=== PATIENT | female | born 1930 | race Two or more races ===

== ENCOUNTER 2016-12-26 19:50 | Inpatient (IN) | payer MEDICARE, OTHER ==
[~2016-12-26] VITALS: Ht 152.4 cm; Wt 59.6 kg
[~2016-12-26 19:50] MED LIST: ALLO300T2 PO; DOCU-144 PO; ERGO500037 PO; EZET10TA3 PO; FERR325C PO; FLUO40CA PO; METO50TA16 PO; MULT-552 PO; OLAN2.5T4 PO; OLME40TA14 PO; PANT40TA4 PO; RALO60TA12 PO; SIMV20TA2 PO
[2016-12-26 20:48] LABS: ADD SCAN DIFF NO
[2016-12-26 20:50] LABS: BASOPHILS % 0.3 % (0.0-2.0); EOSINOPHILS # 0.3 10^3/ul (0.0-0.5); EOSINOPHILS % 4.3 % (0.0-7.0); HEMATOCRIT 32.3 % (37.0-47.0); HEMOGLOBIN 10.6 g/dl (12.0-16.0); LYMPHOCYTES % 29.7 % (15.0-51.0); MEAN CORPUSCULAR HEMOGLOBIN 31.9 pg (29.0-33.0); MEAN CORPUSCULAR HGB CONC 32.8 g/dl (32.0-37.0); MEAN CORPUSCULAR VOLUME 97.3 fl (82.0-101.0); MONOCYTE # 0.5 10^3/ul (0.3-0.9); NEUTROPHIL # 3.9 10^3/ul (1.6-7.5); NEUTROPHILS % 57.3 % (39.0-77.0); PLATELET COUNT 183 10^3/UL (140-415); RED BLOOD COUNT 3.32 10^6/ul (4.20-5.40); RED CELL DISTRIBUTION WIDTH 12.9 % (11.5-14.5); WHITE BLOOD COUNT 6.7 10^3/ul (4.8-10.8)
[2016-12-26] MEDS ORDERED: FURO20TA3 PO (20:56)
[2016-12-26] MEDS ORDERED: POTA20TA96 PO (20:57)
[2016-12-26] MEDS ORDERED: FLUO20CA22 PO (20:57)
[2016-12-26] MEDS ORDERED: OMEP40CA6 PO (20:58)
[2016-12-26] MEDS ORDERED: MIRT15TA5 PO (20:58)
[2016-12-26] MEDS ORDERED: LORA-186 PO (20:59)
[2016-12-26] MEDS ORDERED: FER325 PO (20:59)
[2016-12-26] MEDS ORDERED: ASC500 PO (21:01)
[2016-12-26] MEDS ORDERED: CALC625T73 PO (21:01)
[2016-12-26 21:03] LABS: ADD UMIC YES; UR ASCORBIC ACID 40 mg/dL (NEGATIVE); UR BACTERIA FEW /HPF (NONE SEEN); UR BILIRUBIN (Dip) NEGATIVE (NEGATIVE); UR BLOOD (Dip) 2+ mg/dL (NEGATIVE); UR CLARITY CLOUDY (CLEAR); UR COLOR YELLOW (YELLOW); UR GLUCOSE (Dip) NEGATIVE (NEGATIVE); UR KETONES (Dip) NEGATIVE (NEGATIVE); UR LEUKOCYTE ESTERASE (Dip) 3+ Leu/ul (NEGATIVE); UR MUCUS FEW /HPF (NONE SEEN); UR NITRITE (Dip) POSITIVE (NEGATIVE); UR RBC 40 /HPF (0-5); UR SPECIFIC GRAVITY (Dip) 1.009 (1.003-1.030); UR TOTAL PROTEIN (Dip) NEGATIVE (NEGATIVE); UR UROBILINOGEN (Dip) NEGATIVE (NEGATIVE)
[2016-12-26 21:06] LABS: INR 1.05; PROTIME 13.7 Sec (12.2-14.2); PT RATIO 1.1
[2016-12-26 21:07] LABS: PARTIAL THROMBOPLASTIN TIME 33.1 Sec (25.0-35.0)
[2016-12-26 21:09] LABS: ALBUMIN 4.1 g/dl (3.3-4.9); ALBUMIN/GLOBULIN RATIO 1.57; BILIRUBIN,INDIRECT 0.1 mg/dl (0-1.1); BILIRUBIN,TOTAL 0.1 mg/dl (0.2-1.3); CALCIUM 9.1 mg/dl (8.4-10.2); CREATININE 1.93 mg/dl (0.44-1.00); POTASSIUM 4.2 mmol/L (3.5-5.1); TOTAL PROTEIN 6.7 g/dl (6.1-8.1)
[2016-12-26 21:21] LABS: TROPONIN-I 0.028 ng/ml (0.00-0.12)
[2016-12-26] MEDS ORDERED: SOD CHLORIDE 0.9% 500 ML IV STA (21:26)
--- NOTE | 2016-12-26 21:26 | ERA ---
ER Documentation Chief Complaint Date/Time DATE: 12/26/16 TIME: 21:23 Chief Complaint family states patient been altered/hallucinating since last night HPI This is an 86-year-old female who presents to the emergency room for evaluation of generalized weakness, altered mental status and hallucinations for the past 24 hours. According to the patient's daughter who is giving the majority of the history this patient does sometimes get these symptoms when she has an infection and has had previous urinary tract infections. The daughter states the patient is acting the same as when she had previous urinary tract infection. There is no fevers at home. The patient's primary care physician was called and they were advised to come to the emergency room for further evaluation. ROS All systems reviewed and are negative except as per history of present illness. Medications Home Meds Reported Medications Ascorbic Acid (Vitamin C) 500 Mg Tab, 500 MG PO DAILY, TAB 12/26/16 Calcium Polycarbophil (Fiber-Caps) 625 Mg Tablet, 625 MG PO QAM, TAB 12/26/16 Ferrous Sulfate* (Ferrous Sulfate*) 325 Mg Tabec, 325 MG PO BID, TAB 12/26/16 Loratadine* (Claritin*) 10 Mg Tablet, 10 MG PO QHS, TAB 12/26/16 Mirtazapine* (Mirtazapine*) 15 Mg Tablet, 15 MG PO QAM, TAB 12/26/16 Omeprazole* (Omeprazole*) 40 Mg Capsule.dr, 40 MG PO DAILY, #30 CAP 12/26/16 Potassium Chloride* (Potassium Chloride*) 20 Meq Tablet.er, 20 MEQ PO QHS, TAB.SA 12/26/16 Fluoxetine Hcl* (Fluoxetine Hcl*) 20 Mg Capsule, 20 MG PO DAILY, CAP 12/26/16 Furosemide* (Furosemide*) 20 Mg Tablet, 20 MG PO DAILY, #60 TAB 12/26/16 Multivitamins* (Once Daily*) 1 Tab Tablet, 1 TAB PO DAILY, TAB 01/19/16 Metoprolol Succinate* (Toprol XL*) 50 Mg Tab.er.24h, 50 MG PO DAILY, #30 TAB 01/19/16 Raloxifene Hcl* (Evista*) 60 Mg Tablet, 60 MG PO DAILY, TAB 11/24/14 Discontinued Reported Medications Olanzapine* (Zyprexa*) 2.5 Mg Tablet, 2.5 MG PO DAILY, #30 TAB 01/19/16 Fluoxetine Hcl* (Fluoxetine Hcl*) 40 Mg Capsule, 40 MG PO DAILY, CAP 01/19/16 Ferrous Sulfate (Iron) 325 Mg Capsr, 325 MG PO DAILY 01/19/16 Ergocalciferol (Vitamin D2) (VITAMIN D2) 50,000 Unit Capsule, 76749 UNIT PO WEEKLY, CAP 01/19/16 Docusate Sodium* (Colace*) 100 Mg Capsule, 200 MG PO DAILY, #30 CAP 01/19/16 Pantoprazole (Protonix) 40 Mg Tabec, 40 MG PO AC BREAKFAST, TAB 11/07/15 Allopurinol* (Allopurinol*) 300 Mg Tablet, 300 MG PO QPM, TAB 11/07/15 Simvastatin (Simvastatin) 20 Mg Tablet, 20 MG PO HS, TAB 11/24/14 Olmesartan Medoxomil (Benicar) 40 Mg Tablet, 40 MG PO DAILY, TAB 11/24/14 Ezetimibe* (Zetia*) 10 Mg Tablet, 10 MG PO HS, TAB 11/24/14 Allergies Allergies: Coded Allergies: No Known Allergy (Unverified , 12/26/16) PMhx/Soc History of Surgery: Yes (fused left knee sx) Anesthesia Reaction: No Hx Neurological Disorder: No Hx Respiratory Disorders: No Hx Cardiac Disorders: No Hx Psychiatric Problems: No Hx Miscellaneous Medical Probl: No Hx Alcohol Use: No Hx Substance Use: No Hx Tobacco Use: No Smoking Status: Never smoker Physical Exam Vitals Vital Signs Date Time Temp Pulse Resp B/P Pulse Ox O2 Delivery O2 Flow Rate FiO2 12/26/16 20:44 98.6 60 23 139/82 98 Room Air 12/26/16 19:52 98.7 72 20 131/69 98 Physical Exam INITIAL VITAL SIGNS: Reviewed by me GENERAL: The patient is frail-appearing elderly female, no acute HEENT: Left eye droop, pupils equal, round, and reactive to light. EOMI. There is no scleral icterus. NECK: C-spine is soft and supple, there is no meningismus. There is no cervical lymphadenopathy. LUNGS: Clear to auscultation bilaterally. There are no rales, wheezes or rhonchi. HEART: Regular rate and rhythm, no murmurs, clicks, rubs or gallops. ABDOMEN: Soft, non-tender, non-distended. There are bowel sounds in all four quadrants. No rebound or guarding. EXTREMITIES: There is no peripheral cyanosis or edema. No focal swelling or erythema. NEUROLOGICAL: Alert and oriented to person, left-sided weakness, SKIN: There is no apparent rash or petechiae. HEME/LYMPHATIC: There is no evidence of excessive bruising or lymphedema. PSYCHIATRIC: The patient does not appear anxious or depressed. Result Diagram: 12/26/16202912/26/16 2030 Results 24 hrs Laboratory Tests Test 12/26/16 20:30 White Blood Count 6.710^3/ul Red Blood Count 3.3210^6/ul Hemoglobin 10.6g/dl Hematocrit 32.3% Mean Corpuscular Volume 97.3fl Mean Corpuscular Hemoglobin 31.9pg Mean Corpuscular Hemoglobin Concent 32.8g/dl Red Cell Distribution Width 12.9% Platelet Count 16580^3/UL Mean Platelet Volume 10.0fl Neutrophils % 57.3% Lymphocytes % 29.7% Monocytes % 8.0% Eosinophils % 4.3% Basophils % 0.3% Nucleated Red Blood Cells % 0.0/100WBC Neutrophils # 3.910^3/ul Lymphocytes # 2.010^3/ul Monocytes # 0.510^3/ul Eosinophils # 0.310^3/ul Basophils # 0.010^3/ul Nucleated Red Blood Cells # 0.010^3/ul Prothrombin Time 13.7Sec Prothrombin Time Ratio 1.1 INR International Normalized Ratio 1.05 Activated Partial Thromboplast Time 33.1Sec Urine Color YELLOW Urine Clarity CLOUDY Urine pH 7.0 Urine Specific Sledge 1.009 Urine Ketones NEGATIVEmg/dL Urine Nitrite POSITIVEmg/dL Urine Bilirubin NEGATIVEmg/dL Urine Urobilinogen NEGATIVEmg/dL Urine Leukocyte Esterase 3+Lima/ul Urine Microscopic RBC 40/HPF Urine Microscopic WBC > 182/HPF Urine Bacteria FEW/HPF Urine Mucus FEW/HPF Urine Hemoglobin 2+mg/dL Urine Glucose NEGATIVEmg/dL Urine Total Protein NEGATIVEmg/dl Sodium Level 139mmol/L Potassium Level 4.2mmol/L Chloride Level 107mmol/L Carbon Dioxide Level 23mmol/L Anion Gap 13 Blood Urea Nitrogen 36mg/dl Creatinine 1.93mg/dl Glucose Level 94mg/dl Lactic Acid Level 1.6mmol/L Calcium Level 9.1mg/dl Total Bilirubin 0.1mg/dl Direct Bilirubin 0.00mg/dl Indirect Bilirubin 0.1mg/dl Aspartate Amino Transf (AST/SGOT) 23IU/L Alanine Aminotransferase (ALT/SGPT) 25IU/L Alkaline Phosphatase 125IU/L Troponin I Pending Total Protein 6.7g/dl Albumin 4.1g/dl Globulin 2.60g/dl Albumin/Globulin Ratio 1.57 Current Medications Medications (Trade) Dose Ordered Sig/Mima Route PRN Reason Start Time Stop Time Status Last Admin Dose Admin Ceftriaxone Sodium (Rocephin) 50 ml @ 100 mls/hr ONCE ONCE IVPB 12/26/16 21:30 12/26/16 21:59 Procedures/MDM EKG: Rate/Rhythm: [Normal Sinus Rhythm] QRS, ST, T-waves: [No changes consistent w/ acute ischemia] Impression: [No evidence of ischemia or arrhythmia] Chest X-ray 1V Interpreted by me: Soft Tissue: No acute abnormalities Bones: No acute abnormalities Mediastinum/Cardiac Silhouette/Lungs: [No acute abnormalities] This 86-year-old female presents to the emergency room for evaluation of altered mental status and hallucinations. When I evaluated this patient I saw frail-appearing elderly female who is nontoxic appearing however appeared mildly dehydrated. This patient was afebrile and hemodynamically stable. The patient did have lab work drawn including a urinalysis which does show nitrite positive urinary tract infection. This patient does have renal insufficiency, no severe elevations in her creatinine at this time. No leukocytosis however given this patient's age this patient will be placed in for admission at this time. The patient was given 500 cc of IV fluid. She was given 1 g of Rocephin after blood and urine cultures were obtained. I have contacted the patient's primary care physician, Dr. haji and I discussed the case with him. The patient will be admitted to the [facility] floor at this time. She is hemodynamically stable, mean arterial pressure greater than 65 with no need for vasopressors at this time Departure Diagnosis: Primary Impression: Acute cystitis Additional Impressions: Altered mental status Normocytic anemia Renal insufficiency Condition: Stable PATRICE CAUSEY DO Dec 26, 2016 21:26
[2016-12-26] MEDS ORDERED: ONDANSETRON 4 MG INJ IV PRN (21:30)
[2016-12-26] MEDS ORDERED: ACETAMINOPHEN 325 MG TAB PO PRN (21:30)
[2016-12-26] MEDS ORDERED: CEFTRIAXONE 1 GM/50 ML (PMX) 50 ML IVPB ONE (21:30)
--- NOTE | 2016-12-26 21:43 | RADRPT ---
PROCEDURE: XR Chest. CLINICAL INDICATION: Possible sepsis. TECHNIQUE: Single frontal view of the chest. COMPARISON: 11/19/2015. FINDINGS: Cardiomegaly and atherosclerotic calcifications in the thoracic aorta. Mild elevation right hemidiap hragm is again seen. The lungs are clear. No signs of pleural fluid or pneumothorax are seen. The os seous structures and soft tissues are unremarkable. IMPRESSION: No evidence for active cardiopulmonary disease. RPTAT: [facility] Physician Carmen Date Time Electronically viewed and signed by Physician Carmen on 12/26/2016 21:42 RS/
[2016-12-26 22:42] VITALS: TEMP 98
[2016-12-26 23:00] VITALS: BP 143/64; RESP 19
[2016-12-26 23:08] VITALS: Ht 152.4 cm; Wt 59.6 kg
[2016-12-27] MEDS: SOD CHLORIDE 0.45% 1,000 ML IV SCH ×2 (02:27→18:05)
[2016-12-27 05:36] LABS: ADD SCAN DIFF NO
[2016-12-27 05:49] LABS: BASOPHILS % 0.3 % (0.0-2.0); EOSINOPHILS # 0.2 10^3/ul (0.0-0.5); HEMATOCRIT 31.4 % (37.0-47.0); HEMOGLOBIN 10.2 g/dl (12.0-16.0); LYMPHOCYTES # 1.9 10^3/ul (0.8-2.9); LYMPHOCYTES % 31.8 % (15.0-51.0); MEAN CORPUSCULAR HEMOGLOBIN 32.1 pg (29.0-33.0); MEAN CORPUSCULAR HGB CONC 32.5 g/dl (32.0-37.0); MEAN CORPUSCULAR VOLUME 98.7 fl (82.0-101.0); MEAN PLATELET VOLUME 10.3 fl (7.4-10.4); MONOCYTE # 0.5 10^3/ul (0.3-0.9); MONOCYTES % 7.5 % (0.0-11.0); NEUTROPHIL # 3.3 10^3/ul (1.6-7.5); NEUTROPHILS % 55.7 % (39.0-77.0); PLATELET COUNT 174 10^3/UL (140-415); RED BLOOD COUNT 3.18 10^6/ul (4.20-5.40); RED CELL DISTRIBUTION WIDTH 12.8 % (11.5-14.5)
[2016-12-27] MEDS: PANTOPRAZOLE (EC) 40 MG TAB PO SCH (06:08)
[2016-12-27 06:11] LABS: CALCIUM 9.1 mg/dl (8.4-10.2); CREATININE 1.79 mg/dl (0.44-1.00); POTASSIUM 4.2 mmol/L (3.5-5.1)
[2016-12-27 08:58] VITALS: BP 131/61; RESP 17
[2016-12-27] MEDS: FERROUS SULFATE (EC) 325 MG TAB PO SCH ×2 (10:04→22:00)
[2016-12-27] MEDS: FLUOXETINE 20 MG CAP PO SCH (10:04)
[2016-12-27] MEDS: ASCORBIC ACID 500 MG TAB PO SCH (10:04)
[2016-12-27] MEDS: MULTIVITAMINS THERAPEUTIC TAB PO SCH (10:05)
[2016-12-27] MEDS: RALOXIFENE 60 MG TAB PO SCH (10:05)
[2016-12-27] MEDS: MIRTAZAPINE 15 MG TAB PO SCH (10:05)
[2016-12-27] MEDS: METOPROLOL (XL) 50 MG TAB PO SCH (10:05)
[2016-12-27] MEDS: ASPIRIN 81 MG TAB PO SCH (10:05)
[2016-12-27] MEDS: ENOXAPARIN 30 MG/0.3 ML SYG SC SCH (10:06)
--- NOTE | 2016-12-27 13:24 | CONS ---
DATE OF ADMISSION: 12/26/2016 DATE OF CONSULTATION: 12/27/2016 TYPE OF CONSULTATION: Nephrology. REFERRING PHYSICIAN: Dr. Fred Rogers/admitting physician REASON FOR CONSULTATION: Acute kidney injury with elevated creatinine. HISTORY OF PRESENT ILLNESS: This is an 86-year-old female who has a past medical history of CVA, hy pertension, hyperlipidemia, asthma, arthritis, and borderline diabetes mellitus. The patient was ad mitted to the [facility] on 12/26/2016 with a complaint of altered mental status. The patient has been hallucinating. She was admitted for altered mental status and she was noted t o have acute kidney injury with a creatinine of 1.9. The patient was alert, oriented but not follow ing any commands. She was hallucinating with altered mental status. She had initial workup done in cluding a chest x-ray and she received IV antibiotic ceftriaxone for possible UTI in the emergency r oom. REVIEW OF SYSTEMS: The patient is alert but is not able to provide any review of systems. Unable t o obtain due to the current mental status. PAST MEDICAL HISTORY: Notable for hypertension, hyperlipidemia, CVA, asthma, diabetes mellitus bord lefty, arthritis. PAST SURGICAL HISTORY: History of left leg ____ surgery in 2016. SOCIAL HISTORY: Lives with the family. No smoking, alcohol or recreational drug use. FAMILY HISTORY: No family history of coronary artery disease/chronic kidney disease/stroke. PHYSICAL EXAMINATION: VITAL SIGNS: Temperature 99, heart rate 64, respirations 17, blood pressure 131/67, saturation 96% on room air. GENERAL: Awake, alert, but not oriented to the place, person and time. HEENT: Pupils equal, round, reactive to light and accommodation. Extraocular muscles are anicteric . The patient has a right facial laceration with dry mucous membranes. NECK: Supple, no JVD, no lymphadenopathy. LUNGS: Decreased breath sounds at both lung bases, right middle lobe, right lower lobe basilar rale s present. HEART: S1, S2, tachycardia, no murmur. ABDOMEN: Soft, nontender, nondistended. Bowel sounds are present. EXTREMITIES: No clubbing, cyanosis, or edema. The patient is able to move all [address] 5/5 in all extremities. NEUROLOGIC: Alert, but not oriented to the place, person and time. No focal deficits. PSYCHIATRIC: Appropriate affect and mood, but the patient's family said that she has been hallucina ting at home. LABORATORY DATA AND DIAGNOSTIC IMAGING: Sodium 139, potassium 4.2, chloride 107, bicarbonate ____, BUN 36, creatinine 1.9, glucose 94, calcium 9.1. LFTs are normal. Urinalysis is dirty with a WBC o f more than 182. PT 13.7, PTT 33.1, INR 1.05. WBC 6, hemoglobin 10.2, platelet count 174. Chest x-ray 1 view portable, done in the emergency room is negative. IMPRESSION: This is an 86-year-old female who is getting admitted for altered mental status and thao elizabeth has been consulted for: 1. Acute kidney injury versus acute kidney injury on chronic kidney disease, likely secondary to pr erenal azotemia and also secondary to urinary tract infection. 2. Acute urinary tract infection causing altered mental status. 3. Altered mental status, unclear etiology, possibly secondary to urinary tract infection. 4. History of possible chronic kidney disease secondary to hypertension and diabetes. 5. History of hypertension. 6. History of hyperlipidemia. 7. History of previous cerebrovascular accident. 8. History of borderline diabetes mellitus. PLAN: The patient is currently seen in the med/surg floor. She has already been started on IV anti biotics, ceftriaxone for UTI. I will continue the patient on half NS at 60 mL per hour. I am expec ting the patient's creatinine to improve at this point. Patient is continued on all of her other [facility] medications including Prozac and Remeron for her psychiatric disorders. The patient previously was seen by [facility] and she had a full workup for chronic kidney disease that was done in 2016. At that time, she had urine studies done, but no renal ultrasound was done, so we javon l order her renal ultrasound during this admission to assess the kidney size and to rule out hydrone phrosis and decide for further plan. Once again, thank you, Dr. Rogers, for this consultation. Total time spent in this patient's consultation, making assessment and plan, and communicating with the patient's family and nursing staff took more than 60 minutes. Dictated By: DILSHAD PAIZ MD, KP/HARRISON Conf#: [id number] DID#: [id number] CC: FRED ROGERS MD;*End*
--- NOTE | 2016-12-27 14:19 | RADRPT ---
PROCEDURE: US Renal CLINICAL INDICATION: Acute renal failure. TECHNIQUE: Multiple sonographic images of the kidneys and bladder were obtained. Evaluation of th e kidneys and bladder was performed as well with collazo scale and color and Doppler evaluation using a curved array transducer. The images were reviewed on a high-resolution PACS workstation. COMPARISON: No prior studies are available for comparison. FINDINGS: The right kidney measures 7.5 cm. The left kidney measures 7.7 cm. Kidneys are small with increased echotexture of the renal parenchyma bilaterally. There is mild prominence of the calyces in the right kidney without judit hydronephrosis. No perinephric fluid collection is seen. Evaluation of the urinary bladder is unremarkable. IMPRESSION: 1. Small, echogenic kidneys consistent with medical renal disease. 2. Mild prominence of the calyces in the right kidney without judit hydronephrosis. RPTAT: [facility] Physician Parrish Date Time Electronically viewed and signed by Physician Parrish on 12/27/2016 14:18 NADIA/
--- NOTE | 2016-12-27 15:12 | HP ---
DATE OF ADMISSION: 12/26/2016 CHIEF COMPLAINT: Altered level of consciousness with hallucinations. HISTORY OF PRESENT ILLNESS: The patient is an 86-year-old female with a past medical histo ry positive for hypertension, anxiety, depression, anemia of chronic disease, history of acute kidne y injury, dyslipidemia, gastroesophageal reflux disease. The patient also with history of left knee replacement in 11/2015, subsequent wound dehiscence and exposed hardware, status post treatment. T he patient followed by Dr. Nguyen and Dr. Thomas in orthopedic surgery, and Dr. Almanzar from plas tic surgery standpoint. The patient was brought to the emergency room last night by family members stating that the patient has been altered and hallucinating. The patient was sent to the emergency room by primary care physician. In the emergency room, patient was noted to have a urinary tract in fection per urinalysis. The patient was started on ceftriaxone. The patient did not have any leuko cytosis or fever. The patient was noted to have elevated BUN and creatinine. The patient is being admitted for further evaluation and management. The patient underwent a chest x-ray, which revealed no evidence for acute cardiopulmonary disease. No nausea, vomiting, fever reported. No chest pain , no shortness of breath. PAST MEDICAL HISTORY AND PAST SURGICAL HISTORY: Per HPI. FAMILY HISTORY: Noncontributory. SOCIAL HISTORY: The patient is a , lives with her children. The patient denies any tobacco us e, denies any alcohol use, denies any illicit drug use. ALLERGIES: NO KNOWN ALLERGIES. HOME MEDICATIONS: Include: 1. Vitamin C. 2. Ferrous sulfate. 3. Claritin. 4. Mirtazapine. 5. Omeprazole. 6. Potassium chloride. 7. Fluoxetine. 8. Lasix. 9. Multivitamins. 10. Toprol-XL. REVIEW OF SYSTEMS: A 12-point review of systems is negative unless what mentioned in the HPI. PHYSICAL ASSESSMENT: GENERAL: Well-developed, well-nourished female, currently is awake, alert to name, follows commands , however, pleasantly confused. VITAL SIGNS: Temperature is 99.0, pulse is 64, blood pressure 131/61, respiratory rate 17, oxygen s aturation 96% on room air. HEENT: Head is atraumatic, normocephalic. Pupils equal, round, reactive to light and accommodation . Oral mucosa is pink and moist. NECK: Supple, no cervical lymphadenopathy, no thyromegaly. CHEST: Lungs clear bilaterally. There are no rhonchi, wheezes, rales noted. CARDIOVASCULAR: Normal S1, S2. No murmurs, gallops, clicks, rubs noted. ABDOMEN: Round, soft, nondistended, nontender. Bowel sounds present. There is no guarding, no shayan ound tenderness. EXTREMITIES: No edema, clubbing, cyanosis. The patient has a left knee scar. SKIN: There is no apparent rash or petechiae noted. NEUROLOGIC: The patient is awake, alert to name. Otherwise, confused. Follows commands, moves all extremities. LABORATORY DATA: On admission, CBC: White blood cells 6.7, hemoglobin 10.6, hematocrit 32.3, plate lets 183. Chemistry: Sodium is 139, potassium 4.2, chloride 107, carbon dioxide 23, anion gap 15, BUN is 36, creatinine 1.93, glucose 94. AST 23, ALT 25, alkaline phosphatase 125. Lactic acid is 1 .6. Urinalysis is positive for nitrite and leukocyte esterase, 3+ bacteria and hemoglobin. ASSESSMENT AND PLAN: 1. Acute cystitis. We will continue patient on ceftriaxone. Follow up on urine cultures. Dr. José Luis rice will be following patient in infectious disease consultation. 2. Acute kidney injury on chronic kidney disease. Dr. Perez will be following patient in nephrolog y consultation. Continue to monitor BUN and creatinine. 3. Altered mental status, unclear etiology, secondary to acute metabolic encephalopathy secondary t o infection. 4. Hypertension by history. 5. Hyperlipidemia. 6. History of cerebrovascular accident. 7. History of anxiety and depression. 8. Anemia of chronic disease. 9. History of gastroesophageal reflux disease. 10. History of left knee replacement. We will continue Lovenox for deep venous thrombosis prophylaxis and Protonix for peptic ulcer diseas e prophylaxis. Continue Toprol-XL and aspirin. Further recommendations based on clinical course. Plan of care discussed with Dr. Pennington. Dictated By: PALMA WILL RAGS LABORER for FRED PENNINGTON MD SR/NTS Conf#: [id number] DID#: [id number]
--- NOTE | 2016-12-27 16:32 | CONS ---
DATE OF ADMISSION: 12/26/2016 DATE OF CONSULTATION: 12/27/2016 TYPE OF CONSULTATION: Infectious Disease REASON FOR CONSULTATION: Antibiotic management. HISTORY OF PRESENT ILLNESS: Judi Woodson is an 86-year-old female who comes in with alter ed level of consciousness and hallucinations. Her past problems include: 1. Hypertension. 2. Anxiety and depression. 3. Anemia of chronic disease. 4. Acute kidney injury. 5. Dyslipidemia. 6. GERD. 7. Status post left knee replacement 11/2015 with subsequent wound dehiscence and exposed hardware, status post therapy. The patient has been followed by Dr. Nguyen and Dr. Thomas in orthopedic surgery and by Dr. Almanzar from a plastic surgery viewpoint. The patient was brought to the emergency room on 12/25/2016 in the evening with altered level of con sciousness and hallucinations. She was noted to have a UTI and was started on ceftriaxone. She did not have fever or leukocytosis. She had an elevated BUN and creatinine. On her admission, her whi te count was 6.7, H and H 10.6 and 32.3, platelet count 183,000. BUN and creatinine were 36/1.93 w ith an anion gap of 15, glucose of 94. Urine was positive for nitrite and leukocyte esterase with 3 + bacteria and hemoglobin. PAST MEDICAL HISTORY: Operations as outlined. FAMILY HISTORY: Noncontributory. SOCIAL HISTORY: She is a , lives with her children. She does not smoke, drink or abuse drugs. ALLERGIES: NONE TO PENICILLIN, SULFA OR FOODS. MEDICATIONS: Per chart. REVIEW OF SYSTEMS: As per HPI. PHYSICAL EXAMINATION: GENERAL: The patient is a well-developed, well-nourished female who is alert, responsive, in no acu te distress. VITAL SIGNS: Stable. She is afebrile. SKIN: Without generalized rash. HEENT: Within normal limits. NECK: Supple. LYMPH NODES: None palpable. CHEST: Decreased breath sounds at the bases. HEART: Without murmur or gallop. ABDOMEN: Soft, nontender, without organosplenomegaly or masses. EXTREMITIES: Without cyanosis, clubbing, or edema. RECTAL AND GENITAL: Deferred. NEUROLOGIC: No focal neurological abnormalities. IMPRESSION AND PLAN: The patient currently comes in with altered level of consciousness. She has b een hospitalized, but not recently. I am going to change her to cefepime until the cultures come ba ck. The patient was seen by Dr. Addy Perez. Chest x-ray is negative. Renal ultrasound shows sm all echogenic kidneys consistent with medical renal disease. I will broaden the spectrum of antibio tics until we get the results back and then we can tailor the antibiotics accordingly. Her urine is growing greater than 10 to the 5th gram-negative rods. Dictated By: ANA ZARCO MD, JD/HARRISON Conf#: [id number] DID#: [id number]
[2016-12-27] MEDS: CEFEPIME 1GM/50 ML (PMX) 50 ML IVPB SCH (17:20)
[2016-12-27] MEDS ORDERED: CEFEPIME 1GM/50 ML (PMX) 50 ML IVPB SCH (21:00)
[2016-12-27] MEDS ORDERED: CEFTRIAXONE 1 GM/50 ML (PMX) 50 ML IVPB SCH (21:00)
[2016-12-27 21:27] VITALS: BP 136/64; RESP 18
[2016-12-28] MEDS: ACETAMINOPHEN 325 MG TAB PO PRN ×2 (03:41→20:55)
[2016-12-28] MEDS: PANTOPRAZOLE (EC) 40 MG TAB PO SCH (05:09)
[2016-12-28 05:45] LABS: ADD SCAN DIFF NO
[2016-12-28 05:50] LABS: BASOPHILS % 0.4 % (0.0-2.0); EOSINOPHILS # 0.2 10^3/ul (0.0-0.5); EOSINOPHILS % 3.6 % (0.0-7.0); HEMATOCRIT 34.2 % (37.0-47.0); HEMOGLOBIN 11.2 g/dl (12.0-16.0); LYMPHOCYTES # 1.4 10^3/ul (0.8-2.9); LYMPHOCYTES % 26.7 % (15.0-51.0); MEAN CORPUSCULAR HEMOGLOBIN 31.8 pg (29.0-33.0); MEAN CORPUSCULAR HGB CONC 32.7 g/dl (32.0-37.0); MEAN CORPUSCULAR VOLUME 97.2 fl (82.0-101.0); MEAN PLATELET VOLUME 10.3 fl (7.4-10.4); MONOCYTE # 0.3 10^3/ul (0.3-0.9); MONOCYTES % 6.3 % (0.0-11.0); NEUTROPHIL # 3.2 10^3/ul (1.6-7.5); NEUTROPHILS % 62.6 % (39.0-77.0); PLATELET COUNT 200 10^3/UL (140-415); RED BLOOD COUNT 3.52 10^6/ul (4.20-5.40); RED CELL DISTRIBUTION WIDTH 12.6 % (11.5-14.5); WHITE BLOOD COUNT 5.1 10^3/ul (4.8-10.8)
[2016-12-28 06:03] LABS: INR 1.03; PROTIME 13.5 Sec (12.2-14.2); PT RATIO 1.1
[2016-12-28 06:04] LABS: PARTIAL THROMBOPLASTIN TIME 36.5 Sec (25.0-35.0)
[2016-12-28 06:11] LABS: ALBUMIN 3.9 g/dl (3.3-4.9); ALBUMIN/GLOBULIN RATIO 1.5; BILIRUBIN,INDIRECT 0.2 mg/dl (0-1.1); BILIRUBIN,TOTAL 0.2 mg/dl (0.2-1.3); CREATININE 1.6 mg/dl (0.44-1.00); POTASSIUM 4.1 mmol/L (3.5-5.1); TOTAL PROTEIN 6.5 g/dl (6.1-8.1)
[2016-12-28 06:59] VITALS: BP 149/70; PULSE 53; RESP 18
[2016-12-28 07:00] VITALS: BP 125/58; RESP 18
[2016-12-28] MEDS: ASPIRIN 81 MG TAB PO SCH (08:51)
[2016-12-28] MEDS: FLUOXETINE 20 MG CAP PO SCH (08:51)
[2016-12-28] MEDS: MIRTAZAPINE 15 MG TAB PO SCH (08:51)
[2016-12-28] MEDS: MULTIVITAMINS THERAPEUTIC TAB PO SCH (08:51)
[2016-12-28] MEDS: ASCORBIC ACID 500 MG TAB PO SCH (08:51)
[2016-12-28] MEDS: FERROUS SULFATE (EC) 325 MG TAB PO SCH ×2 (08:51→20:55)
[2016-12-28] MEDS: METOPROLOL (XL) 50 MG TAB PO SCH (08:53)
[2016-12-28] MEDS: ENOXAPARIN 30 MG/0.3 ML SYG SC SCH (09:12)
[2016-12-28] MEDS: RALOXIFENE 60 MG TAB PO SCH (10:20)
[2016-12-28] MEDS: SOD CHLORIDE 0.45% 1,000 ML IV SCH ×2 (10:20→20:55)
--- NOTE | 2016-12-28 12:33 | PN ---
Date/Time of Note Date/Time of Note DATE: 12/28/16 TIME: 12:33 Assessment/Plan VTE Prophylaxis VTE Prophylaxis Intervention: other Lines/Catheters IV C[facility]ter Type (from [facility] Peripheral IV Urinary Cath still in place: No Assessment/Plan Chief Complaint/Hosp Course 1. Acute cystitis. We will continue patient on ceftriaxone. Follow up on urine cultures. Dr. Del Rio will be following patient in infectious disease consultation. 2. Acute kidney injury on chronic kidney disease. Dr. Perez will be following patient in nephrology consultation. Continue to monitor BUN and creatinine. 3. Altered mental status, unclear etiology, secondary to acute metabolic encephalopathy secondary to infection. 4. Hypertension by history. 5. Hyperlipidemia. 6. History of cerebrovascular accident. 7. History of anxiety and depression. 8. Anemia of chronic disease. 9. History of gastroesophageal reflux disease. 10. History of left knee replacement. Problems: Subjective 24 Hr Interval Summary Free Text/Dictation Patient has no complaints Exam/Review of Systems Vital Signs Vitals Vital Signs Date Time Temp Pulse Resp B/P Pulse Ox O2 Delivery O2 Flow Rate FiO2 12/28/16 07:00 98.7 54 18 125/58 97 12/28/16 06:59 Room Air Intake and Output 12/27/16 12/27/16 12/28/16 15:00 23:00 07:00 Intake Total 1660 ml 980 ml Balance 1660 ml 980 ml Exam Constitutional: well developed Head: atraumatic, normocephalic Neck: supple Respiratory: clear to auscultation Cardiovascular: regular rate and rhythm Gastrointestinal: non-tender, soft Extremities: normal pulses Results Result Diagram: 12/28/16 0455 12/28/16 0455 Results 24 hrs Laboratory Tests Test 12/28/16 04:55 White Blood Count 5.1 Red Blood Count 3.52 L Hemoglobin 11.2 L Hematocrit 34.2 L Mean Corpuscular Volume 97.2 Mean Corpuscular Hemoglobin 31.8 Mean Corpuscular Hemoglobin Concent 32.7 Red Cell Distribution Width 12.6 Platelet Count 200 Mean Platelet Volume 10.3 Neutrophils % 62.6 Lymphocytes % 26.7 Monocytes % 6.3 Eosinophils % 3.6 Basophils % 0.4 Nucleated Red Blood Cells % 0.0 Neutrophils # 3.2 Lymphocytes # 1.4 Monocytes # 0.3 Eosinophils # 0.2 Basophils # 0.0 Nucleated Red Blood Cells # 0.0 Prothrombin Time 13.5 Prothrombin Time Ratio 1.1 INR International Normalized Ratio 1.03 Activated Partial Thromboplast Time 36.5 H Sodium Level 141 Potassium Level 4.1 Chloride Level 110 Carbon Dioxide Level 22 Anion Gap 13 Blood Urea Nitrogen 31 H Creatinine 1.60 H Glucose Level 90 Calcium Level 9.0 Magnesium Level 2.0 Total Bilirubin 0.2 Direct Bilirubin 0.00 Indirect Bilirubin 0.2 Aspartate Amino Transf (AST/SGOT) 22 Alanine Aminotransferase (ALT/SGPT) 20 Alkaline Phosphatase 94 Total Protein 6.5 Albumin 3.9 Globulin 2.60 Albumin/Globulin Ratio 1.50 Medications Medications Current Medications Sodium Chloride (1/2 NS) 1,000 ml @ 60 mls/hr [id number] IV Last administered on 12/28/16 10:20; Admin Dose 60 MLS/HR; Start 12/27/16 at 00:00 Acetaminophen (Tylenol Tab) 650 mg Q6H PRN PO PAIN AND OR ELEVATED TEMP Last administered on 12/28/16 03:41; Admin Dose 650 MG; Start 12/27/16 at 00:00 Enoxaparin Sodium (Lovenox) 30 mg DAILY SC Last administered on 12/28/16 09:12 ; Admin Dose 30 MG; Start 12/27/16 at 09:00 Aspirin (Aspirin) 81 mg DAILY PO Last administered on 12/28/16 08:51; Admin Dose 81 MG; Start 12/27/16 at 09:00 Ascorbic Acid (Vitamin C) 500 mg DAILY PO Last administered on 12/28/16 08:51 ; Admin Dose 500 MG; Start 12/27/16 at 09:00 Ferrous Sulfate (Ferrous Sulfate (Ec)) 325 mg BID PO Last administered on 08:51; Admin Dose 325 MG; Start 12/27/16 at 09:00 Fluoxetine HCl (Prozac) 20 mg DAILY PO Last administered on 12/28/16 08:51; Admin Dose 20 MG; Start 12/27/16 at 09:00 Metoprolol Succinate (Toprol Xl) 50 mg DAILY PO Last administered on 12/28/16 08:53; Admin Dose 50 MG; Start 12/27/16 at 09:00 Mirtazapine (Remeron) 15 mg QAM PO Last administered on 12/28/16 08:51; Admin Dose 15 MG; Start 12/27/16 at 09:00 Multivitamins Therapeutic (Theragran) 1 tab DAILY PO Last administered on 08:51; Admin Dose 1 TAB; Start 12/27/16 at 09:00 Raloxifene HCl (Evista) 60 mg DAILY PO Last administered on 12/28/16 10:20; Admin Dose 60 MG; Start 12/27/16 at 09:00 Pantoprazole 40 mg 40 mg DAILY@06 PO Last administered on 12/28/16 05:09; Admin Dose 40 MG; Start 12/27/16 at 06:00 Cefepime HCl (Maxipime 1gm/50 ml (Pmx)) 50 ml @ 100 mls/hr Q24H IVPB Last administered on 12/27/16 17:20; Admin Dose 100 MLS/HR; Start 12/27/16 at 18:00 ELSY CARTER Dec 28, 2016 12:33
--- NOTE | 2016-12-28 12:47 | CONS ---
Date/Time of Note Date/Time of Note DATE: 12/28/16 TIME: 12:45 Assessment/Plan Assessment/Plan Additional Assessment/Plan 1. Acute kidney injury versus acute kidney injury on chronic kidney disease, likely secondary to prerenal azotemia and also secondary to urinary tract infection. 2. Acute urinary tract infection causing altered mental status. 3. Altered mental status, unclear etiology, possibly secondary to urinary tract infection. 4. History of possible chronic kidney disease secondary to hypertension and diabetes. 5. History of hypertension. 6. History of hyperlipidemia. 7. History of previous cerebrovascular accident. 8. History of borderline diabetes mellitus. PLAN: IV Ceftriaxone for UTI Cr improved to 1.6 with IVF and IV abx conitnue to monitor Cr and electrolytes, will follow up Consultation Date/Type/Reason Admit Date/Time Dec 26, 2016 at 21:23 Initial Consult Date Type of Consultation: NEPHROLOGY Referring Provider: FRED PENNINGTON MD 24 HR Interval Summary Free Text/Dictation no acute events, BP stable Exam/Review of Systems Vital Signs Vitals Vital Signs Date Time Temp Pulse Resp B/P Pulse Ox O2 Delivery O2 Flow Rate FiO2 12/28/16 07:00 98.7 54 18 125/58 97 12/28/16 06:59 Room Air Intake and Output 12/27/16 12/27/16 12/28/16 15:00 23:00 07:00 Intake Total 1660 ml 980 ml Balance 1660 ml 980 ml Exam GENERAL: Awake, alert, but not oriented to the place, person and time. HEENT: Pupils equal, round, reactive to light and accommodation. Extraocular muscles are anicteric. The patient has a right facial laceration with dry mucous membranes. NECK: Supple, no JVD, no lymphadenopathy. LUNGS: Decreased breath sounds at both lung bases, right middle lobe, right lower lobe basilar rales present. HEART: S1, S2, tachycardia, no murmur. ABDOMEN: Soft, nontender, nondistended. Bowel sounds are present. EXTREMITIES: No clubbing, cyanosis, or edema. The patient is able to move all 4 extremities. Strength 5/5 in all extremities. NEUROLOGIC: Alert, but not oriented to the place, person and time. No focal deficits. PSYCHIATRIC: Appropriate affect and mood, but the patient's family said that she has been hallucinating at home. Results Result Diagram: 12/28/16 0455 12/28/16 0455 Results 24 hrs Laboratory Tests Test 12/28/16 04:55 White Blood Count 5.1 Red Blood Count 3.52 L Hemoglobin 11.2 L Hematocrit 34.2 L Mean Corpuscular Volume 97.2 Mean Corpuscular Hemoglobin 31.8 Mean Corpuscular Hemoglobin Concent 32.7 Red Cell Distribution Width 12.6 Platelet Count 200 Mean Platelet Volume 10.3 Neutrophils % 62.6 Lymphocytes % 26.7 Monocytes % 6.3 Eosinophils % 3.6 Basophils % 0.4 Nucleated Red Blood Cells % 0.0 Neutrophils # 3.2 Lymphocytes # 1.4 Monocytes # 0.3 Eosinophils # 0.2 Basophils # 0.0 Nucleated Red Blood Cells # 0.0 Prothrombin Time 13.5 Prothrombin Time Ratio 1.1 INR International Normalized Ratio 1.03 Activated Partial Thromboplast Time 36.5 H Sodium Level 141 Potassium Level 4.1 Chloride Level 110 Carbon Dioxide Level 22 Anion Gap 13 Blood Urea Nitrogen 31 H Creatinine 1.60 H Glucose Level 90 Calcium Level 9.0 Magnesium Level 2.0 Total Bilirubin 0.2 Direct Bilirubin 0.00 Indirect Bilirubin 0.2 Aspartate Amino Transf (AST/SGOT) 22 Alanine Aminotransferase (ALT/SGPT) 20 Alkaline Phosphatase 94 Total Protein 6.5 Albumin 3.9 Globulin 2.60 Albumin/Globulin Ratio 1.50 Medications Medications Current Medications Sodium Chloride (1/2 NS) 1,000 ml @ 60 mls/hr [id number] IV Last administered on 12/28/16 10:20; Admin Dose 60 MLS/HR; Start 12/27/16 at 00:00 Acetaminophen (Tylenol Tab) 650 mg Q6H PRN PO PAIN AND OR ELEVATED TEMP Last administered on 12/28/16 03:41; Admin Dose 650 MG; Start 12/27/16 at 00:00 Enoxaparin Sodium (Lovenox) 30 mg DAILY SC Last administered on 12/28/16 09:12 ; Admin Dose 30 MG; Start 12/27/16 at 09:00 Aspirin (Aspirin) 81 mg DAILY PO Last administered on 12/28/16 08:51; Admin Dose 81 MG; Start 12/27/16 at 09:00 Ascorbic Acid (Vitamin C) 500 mg DAILY PO Last administered on 12/28/16 08:51 ; Admin Dose 500 MG; Start 12/27/16 at 09:00 Ferrous Sulfate (Ferrous Sulfate (Ec)) 325 mg BID PO Last administered on 08:51; Admin Dose 325 MG; Start 12/27/16 at 09:00 Fluoxetine HCl (Prozac) 20 mg DAILY PO Last administered on 12/28/16 08:51; Admin Dose 20 MG; Start 12/27/16 at 09:00 Metoprolol Succinate (Toprol Xl) 50 mg DAILY PO Last administered on 12/28/16 08:53; Admin Dose 50 MG; Start 12/27/16 at 09:00 Mirtazapine (Remeron) 15 mg QAM PO Last administered on 12/28/16 08:51; Admin Dose 15 MG; Start 12/27/16 at 09:00 Multivitamins Therapeutic (Theragran) 1 tab DAILY PO Last administered on 08:51; Admin Dose 1 TAB; Start 12/27/16 at 09:00 Raloxifene HCl (Evista) 60 mg DAILY PO Last administered on 12/28/16 10:20; Admin Dose 60 MG; Start 12/27/16 at 09:00 Pantoprazole 40 mg 40 mg DAILY@06 PO Last administered on 12/28/16 05:09; Admin Dose 40 MG; Start 12/27/16 at 06:00 Cefepime HCl (Maxipime 1gm/50 ml (Pmx)) 50 ml @ 100 mls/hr Q24H IVPB Last administered on 12/27/16 17:20; Admin Dose 100 MLS/HR; Start 12/27/16 at 18:00 DILSHAD PAIZ MD Dec 28, 2016 12:47
[2016-12-28] MEDS ORDERED: LORAZEPAM 1 MG TAB PO PRN (18:30)
[2016-12-28] MEDS: CEFEPIME 1GM/50 ML (PMX) 50 ML IVPB SCH (18:34)
--- NOTE | 2016-12-28 19:53 | CONS ---
Date/Time of Note Date/Time of Note DATE: 12/28/16 TIME: 19:40 Assessment/Plan Assessment/Plan Chief Complaint/Hosp Course ID FOLLOW UP NOTE * Awake, confused w/increased agitation -- was given po Ativan for attempting to get OOB * No fevers, VSS, started on Cefepime for acute GNR UTI, Blood Cx (-) 12/26/16 Microbiology URINE CULTURE Final Organism 1 PROVIDENCIA STUARTII COLONY COUNT >100,000 CFU/ml P STUARTII M.I.C. RX --------- --- AMIKACIN <=2 S AMPICILLIN/SULBACTAM 4 S CEFOTAXIME S CIPROFLOXACIN >=4 R GENTAMICIN R LEVOFLOXACIN >=8 R NITROFURANTOIN 128 R TOBRAMYCIN R TRIMETHOPRIM/SULFAMETHOXAZOLE <=20 S ID ASSESSMENT 86-yo F w/PMHx CVA, ?vascular dementia? w/psych Dx anxiety/depression admit with : 1. Acute GNR UTI associated w/SIRS as evidence by low grade TMax 99.0 range, plus altered level of consciousness, w/hallucinations. * Blood Cx (-) * Urine Cx (+) URINE CULTURE Final Organism 1 PROVIDENCIA STUARTII COLONY COUNT >100,000 CFU/ml 2. Acute kidney injury. * RENAL US: Small, echogenic kidneys consistent with medical renal disease. Mild prominence of the calyces in the right kidney without judit hydronephrosis. 3. Hypertension. 5. Dyslipidemia. 6. GERD. 7. Status post left knee replacement 11/2015 with subsequent wound dehiscence and exposed hardware, status post therapy. * Followed by Dr. Nguyen and Dr. Thomas in orthopedic surgery and by Dr. Almanzar from a plastic surgery viewpoint. 8. Hx of CVA in past associated w/acute ALOC, confusion, hallucinations RECOMMENDATIONS 1. Hx of CVA in past -> CT head w/contrast on order per ongoing ALOC, confusion , hallucinations 2. Continue Cefepime for GNR UTI . Problems: Consultation Date/Type/Reason Admit Date/Time Dec 26, 2016 at 21:23 Initial Consult Date Type of Consultation: ID Referring Provider: FRED PENNINGTON MD Exam/Review of Systems Vital Signs Vitals Vital Signs Date Time Temp Pulse Resp B/P Pulse Ox O2 Delivery O2 Flow Rate FiO2 12/28/16 07:00 98.7 54 18 125/58 97 12/28/16 06:59 Room Air Intake and Output 12/27/16 12/27/16 12/28/16 15:00 23:00 07:00 Intake Total 1660 ml 980 ml Balance 1660 ml 980 ml Results Result Diagram: 12/28/16 0455 12/28/16 0455 Results 24 hrs Laboratory Tests Test 12/28/16 04:55 White Blood Count 5.1 Red Blood Count 3.52 L Hemoglobin 11.2 L Hematocrit 34.2 L Mean Corpuscular Volume 97.2 Mean Corpuscular Hemoglobin 31.8 Mean Corpuscular Hemoglobin Concent 32.7 Red Cell Distribution Width 12.6 Platelet Count 200 Mean Platelet Volume 10.3 Neutrophils % 62.6 Lymphocytes % 26.7 Monocytes % 6.3 Eosinophils % 3.6 Basophils % 0.4 Nucleated Red Blood Cells % 0.0 Neutrophils # 3.2 Lymphocytes # 1.4 Monocytes # 0.3 Eosinophils # 0.2 Basophils # 0.0 Nucleated Red Blood Cells # 0.0 Prothrombin Time 13.5 Prothrombin Time Ratio 1.1 INR International Normalized Ratio 1.03 Activated Partial Thromboplast Time 36.5 H Sodium Level 141 Potassium Level 4.1 Chloride Level 110 Carbon Dioxide Level 22 Anion Gap 13 Blood Urea Nitrogen 31 H Creatinine 1.60 H Glucose Level 90 Calcium Level 9.0 Magnesium Level 2.0 Total Bilirubin 0.2 Direct Bilirubin 0.00 Indirect Bilirubin 0.2 Aspartate Amino Transf (AST/SGOT) 22 Alanine Aminotransferase (ALT/SGPT) 20 Alkaline Phosphatase 94 Total Protein 6.5 Albumin 3.9 Globulin 2.60 Albumin/Globulin Ratio 1.50 Medications Medications Current Medications Sodium Chloride (1/2 NS) 1,000 ml @ 60 mls/hr [id number] IV Last administered on 12/28/16t 10:20; Admin Dose 60 MLS/HR; Start 12/27/16 at 00:00 Acetaminophen (Tylenol Tab) 650 mg Q6H PRN PO PAIN AND OR ELEVATED TEMP Last administered on 12/28/16 03:41; Admin Dose 650 MG; Start 12/27/16 at 00:00 Enoxaparin Sodium (Lovenox) 30 mg DAILY SC Last administered on 12/28/16 09:12 ; Admin Dose 30 MG; Start 12/27/16 at 09:00 Aspirin (Aspirin) 81 mg DAILY PO Last administered on 12/28/16 08:51; Admin Dose 81 MG; Start 12/27/16 at 09:00 Ascorbic Acid (Vitamin C) 500 mg DAILY PO Last administered on 12/28/16 08:51 ; Admin Dose 500 MG; Start 12/27/16 at 09:00 Ferrous Sulfate (Ferrous Sulfate (Ec)) 325 mg BID PO Last administered on 08:51; Admin Dose 325 MG; Start 12/27/16 at 09:00 Fluoxetine HCl (Prozac) 20 mg DAILY PO Last administered on 12/28/16 08:51; Admin Dose 20 MG; Start 12/27/16 at 09:00 Metoprolol Succinate (Toprol Xl) 50 mg DAILY PO Last administered on 12/28/16 08:53; Admin Dose 50 MG; Start 12/27/16 at 09:00 Mirtazapine (Remeron) 15 mg QAM PO Last administered on 12/28/16 08:51; Admin Dose 15 MG; Start 12/27/16 at 09:00 Multivitamins Therapeutic (Theragran) 1 tab DAILY PO Last administered on 08:51; Admin Dose 1 TAB; Start 12/27/16 at 09:00 Raloxifene HCl (Evista) 60 mg DAILY PO Last administered on 12/28/16 10:20; Admin Dose 60 MG; Start 12/27/16 at 09:00 Pantoprazole 40 mg 40 mg DAILY@06 PO Last administered on 12/28/16 05:09; Admin Dose 40 MG; Start 12/27/16 at 06:00 Cefepime HCl (Maxipime 1gm/50 ml (Pmx)) 50 ml @ 100 mls/hr Q24H IVPB Last administered on 12/28/16 18:34; Admin Dose 100 MLS/HR; Start 12/27/16 at 18:00 Lorazepam (Ativan) 1 mg Q4H PRN PO AGITATION/ANXIETY Last administered on t 18:06; Admin Dose 1 MG; Start 12/28/16 at 18:30 NIYAH BELLA NP Dec 28, 2016 19:50
--- NOTE | 2016-12-28 20:01 | RADRPT ---
PROCEDURE: CT Head without. CLINICAL INDICATION: Increasing confusion. TECHNIQUE: The study was performed utilizing a multi-slice, multidetector CT scanner. Direct spira l 1 mm axial sections were obtained through the head without the use of intravenous contrast materia l. 1 or more of the following dose reduction techniques were utilized: Automated exposure control, adjustment of the mA and/or kV according to patient's size, iterative reconstruction technique. Co chel and sagittal reformations were obtained. The images were reviewed on a PACS workstation. RADIATION DOSE: CTDIvol: 45.0 mGyDLP: 810.3 mGy-cm COMPARISON: 11/24/2014 FINDINGS: There is no intracranial hemorrhage, extra-axial fluid collection, mass lesion, midline shift or hyd rocephalus. There is mild to moderate prominence of the cerebral sulci, lateral and third ventricle s. There has been interval development of well-circumscribed area of encephalomalacia involving the paramedian right occipital lobe (axial series image 13), which appears to be related to chronic enc ephalomalacia. There is moderate patchy and confluent periventricular and subcortical white matter hypodensity. There is moderate arteriosclerotic calcification of the parasellar internal carotid ar teries. The collazo-white matter differentiation is preserved. The basal cisterns are patent. The mi dline structures are intact. There is bilateral aphakia. The orbits, calvarium and extracranial so ft tissues are normal in appearance. The visualized paranasal sinuses, mastoid air cells and middle ear cavities are normally aerated. IMPRESSION: 1. No acute intracranial abnormality. No intracranial hemorrhage, extra-axial fluid collection, ma ss lesion or hydrocephalous. 2. Interval development of well-circumscribed encephalomalacia involving the paramedian right occip ital lobe, likely related to infarct. This appears to be chronic, however acute infarct is not comp letely excluded. MRI of the brain may be helpful for further evaluation. 3. Mild to moderate peripheral and central cerebral volume loss. 4. Moderate patchy periventricular and subcortical white matter hypodensity, likely related to chronic care nurse latasha microangiopathic changes. The above findings were discussed with Patient's physician RAUL Hazel by telephone on 12/28/2016 8: 01:01 PM. RPTAT: HGAS .Joon Wall MD, MD Date Time Electronically viewed and signed by .Joon Wall MD, MD on 12/28/2016 20:01 .S/
[2016-12-28 20:36] VITALS: BP 150/77; RESP 18
[2016-12-29] MEDS: ACETAMINOPHEN 325 MG TAB PO PRN (05:14)
[2016-12-29] MEDS: PANTOPRAZOLE (EC) 40 MG TAB PO SCH (05:14)
[2016-12-29 08:38] VITALS: BP 165/80; PULSE 61; RESP 16
[2016-12-29] MEDS: MULTIVITAMINS THERAPEUTIC TAB PO SCH (08:43)
[2016-12-29] MEDS: ASCORBIC ACID 500 MG TAB PO SCH (08:43)
[2016-12-29] MEDS: MIRTAZAPINE 15 MG TAB PO SCH (08:43)
[2016-12-29] MEDS: FLUOXETINE 20 MG CAP PO SCH (08:43)
[2016-12-29] MEDS: FERROUS SULFATE (EC) 325 MG TAB PO SCH ×2 (08:43→21:34)
[2016-12-29] MEDS: RALOXIFENE 60 MG TAB PO SCH (08:43)
[2016-12-29] MEDS: ASPIRIN 81 MG TAB PO SCH (08:43)
[2016-12-29] MEDS: METOPROLOL (XL) 50 MG TAB PO SCH (08:44)
[2016-12-29] MEDS: ENOXAPARIN 30 MG/0.3 ML SYG SC SCH (08:47)
--- NOTE | 2016-12-29 12:28 | PN ---
Date/Time of Note Date/Time of Note DATE: 12/29/16 TIME: 12:28 Assessment/Plan VTE Prophylaxis VTE Prophylaxis Intervention: other Lines/Catheters IV C[facility]ter Type (from [facility] Peripheral IV Urinary Cath still in place: No Assessment/Plan Chief Complaint/Hosp Course 1. Acute cystitis. We will continue patient on ceftriaxone. Follow up on urine cultures. Dr. Del Rio will be following patient in infectious disease consultation. 2. Acute kidney injury on chronic kidney disease. Dr. Perez will be following patient in nephrology consultation. Continue to monitor BUN and creatinine. 3. Altered mental status, unclear etiology, secondary to acute metabolic encephalopathy secondary to infection. 4. Hypertension by history. 5. Hyperlipidemia. 6. History of cerebrovascular accident. 7. History of anxiety and depression. 8. Anemia of chronic disease. 9. History of gastroesophageal reflux disease. 10. History of left knee replacement. Problems: Subjective 24 Hr Interval Summary Free Text/Dictation Patient has no complaints Exam/Review of Systems Vital Signs Vitals Vital Signs Date Time Temp Pulse Resp B/P Pulse Ox O2 Delivery O2 Flow Rate FiO2 12/29/16 08:38 97.9 61 16 165/80 96 Room Air 12/29/16 08:15 1.0 Intake and Output 12/28/16 12/28/16 12/29/16 15:00 23:00 07:00 Intake Total 340 ml 1040 ml 780 ml Balance 340 ml 1040 ml 780 ml Exam Constitutional: well developed Head: atraumatic, normocephalic Neck: supple Respiratory: diminished breath sounds Cardiovascular: regular rate and rhythm Gastrointestinal: non-tender, soft Extremities: normal pulses Results Result Diagram: 12/28/16 0455 12/28/16 0455 Medications Medications Current Medications Sodium Chloride (1/2 NS) 1,000 ml @ 60 mls/hr [id number] IV Last administered on 12/28/16 20:55; Admin Dose 60 MLS/HR; Start 12/27/16 at 00:00 Acetaminophen (Tylenol Tab) 650 mg Q6H PRN PO PAIN AND OR ELEVATED TEMP Last administered on 12/29/16 05:14; Admin Dose 650 MG; Start 12/27/16 at 00:00 Enoxaparin Sodium (Lovenox) 30 mg DAILY SC Last administered on 12/29/16 08:47 ; Admin Dose 30 MG; Start 12/27/16 at 09:00 Aspirin (Aspirin) 81 mg DAILY PO Last administered on 12/29/16 08:43; Admin Dose 81 MG; Start 12/27/16 at 09:00 Ascorbic Acid (Vitamin C) 500 mg DAILY PO Last administered on 12/29/16 08:43 ; Admin Dose 500 MG; Start 12/27/16 at 09:00 Ferrous Sulfate (Ferrous Sulfate (Ec)) 325 mg BID PO Last administered on 08:43; Admin Dose 325 MG; Start 12/27/16 at 09:00 Fluoxetine HCl (Prozac) 20 mg DAILY PO Last administered on 12/29/16 08:43; Admin Dose 20 MG; Start 12/27/16 at 09:00 Metoprolol Succinate (Toprol Xl) 50 mg DAILY PO Last administered on 12/29/16 08:44; Admin Dose 50 MG; Start 12/27/16 at 09:00 Mirtazapine (Remeron) 15 mg QAM PO Last administered on 12/29/16 08:43; Admin Dose 15 MG; Start 12/27/16 at 09:00 Multivitamins Therapeutic (Theragran) 1 tab DAILY PO Last administered on 08:43; Admin Dose 1 TAB; Start 12/27/16 at 09:00 Raloxifene HCl (Evista) 60 mg DAILY PO Last administered on 12/29/16 08:43; Admin Dose 60 MG; Start 12/27/16 at 09:00 Pantoprazole 40 mg 40 mg DAILY@06 PO Last administered on 12/29/16 05:14; Admin Dose 40 MG; Start 12/27/16 at 06:00 Cefepime HCl (Maxipime 1gm/50 ml (Pmx)) 50 ml @ 100 mls/hr Q24H IVPB Last administered on 12/28/16 18:34; Admin Dose 100 MLS/HR; Start 12/27/16 at 18:00 Lorazepam (Ativan) 1 mg Q4H PRN PO AGITATION/ANXIETY Last administered on 18:06; Admin Dose 1 MG; Start 12/28/16 at 18:30 ELSY CARTER Dec 29, 2016 12:28
[2016-12-29] MEDS: SOD CHLORIDE 0.45% 1,000 ML IV SCH (13:01)
--- NOTE | 2016-12-29 16:09 | CONS ---
Date/Time of Note Date/Time of Note DATE: 12/29/16 TIME: 16:06 Assessment/Plan Assessment/Plan Additional Assessment/Plan 1. Acute kidney injury versus acute kidney injury on chronic kidney disease, likely secondary to prerenal azotemia and also secondary to urinary tract infection. - UO 2.1 - Cr 1.60 2. Acute urinary tract infection causing altered mental status. 3. Altered mental status, unclear etiology, possibly secondary to urinary tract infection. 4. History of possible chronic kidney disease secondary to hypertension and diabetes. 5. History of hypertension. 6. History of hyperlipidemia. 7. History of previous cerebrovascular accident. 8. History of borderline diabetes mellitus. PLAN: IV Ceftriaxone for UTI Cr improved to 1.6 with IVF and IV abx conitnue to monitor Cr and electrolytes, will follow up Further recommendations depend upon patient's clinical course. Plan of care dw Dr. Milana Perez/staff/patient. Consultation Date/Type/Reason Admit Date/Time Dec 26, 2016 at 21:23 Initial Consult Date Type of Consultation: ID Referring Provider: FRED PENNINGTON MD Exam/Review of Systems Vital Signs Vitals Vital Signs Date Time Temp Pulse Resp B/P Pulse Ox O2 Delivery O2 Flow Rate FiO2 12/29/16 08:38 97.9 61 16 165/80 96 Room Air 12/29/16 08:15 1.0 Intake and Output 12/28/16 12/28/16 12/29/16 15:00 23:00 07:00 Intake Total 340 ml 1040 ml 780 ml Balance 340 ml 1040 ml 780 ml Exam Constitutional: alert, well developed Respiratory: clear to auscultation, normal air movement Cardiovascular: nl pulses, regular rate and rhythm Gastrointestinal: non-tender, soft Musculoskeletal: nl extremities to inspection Extremities: normal pulses Neurological: confused, nl speech, other (sleepy, awakens when called by name, answers simple Qs. goes back to sleep after talking) Results Result Diagram: 12/28/1645412/28/16454 Medications Medications Current Medications Sodium Chloride (1/2 NS) 1,000 ml @ 60 mls/hr [id number] IV Last administered on 12/29/16t 13:01; Admin Dose 60 MLS/HR; Start 12/27/16 at 00:00 Acetaminophen (Tylenol Tab) 650 mg Q6H PRN PO PAIN AND OR ELEVATED TEMP Last administered on 12/29/16 05:14; Admin Dose 650 MG; Start 12/27/16 at 00:00 Enoxaparin Sodium (Lovenox) 30 mg DAILY SC Last administered on 12/29/16 08:47 ; Admin Dose 30 MG; Start 12/27/16 at 09:00 Aspirin (Aspirin) 81 mg DAILY PO Last administered on 12/29/16 08:43; Admin Dose 81 MG; Start 12/27/16 at 09:00 Ascorbic Acid (Vitamin C) 500 mg DAILY PO Last administered on 12/29/16 08:43 ; Admin Dose 500 MG; Start 12/27/16 at 09:00 Ferrous Sulfate (Ferrous Sulfate (Ec)) 325 mg BID PO Last administered on 08:43; Admin Dose 325 MG; Start 12/27/16 at 09:00 Fluoxetine HCl (Prozac) 20 mg DAILY PO Last administered on 12/29/16 08:43; Admin Dose 20 MG; Start 12/27/16 at 09:00 Metoprolol Succinate (Toprol Xl) 50 mg DAILY PO Last administered on 12/29/16 08:44; Admin Dose 50 MG; Start 12/27/16 at 09:00 Mirtazapine (Remeron) 15 mg QAM PO Last administered on 12/29/16 08:43; Admin Dose 15 MG; Start 12/27/16 at 09:00 Multivitamins Therapeutic (Theragran) 1 tab DAILY PO Last administered on 08:43; Admin Dose 1 TAB; Start 12/27/16 at 09:00 Raloxifene HCl (Evista) 60 mg DAILY PO Last administered on 12/29/16 08:43; Admin Dose 60 MG; Start 12/27/16 at 09:00 Pantoprazole 40 mg 40 mg DAILY@06 PO Last administered on 12/29/16 05:14; Admin Dose 40 MG; Start 12/27/16 at 06:00 Cefepime HCl (Maxipime 1gm/50 ml (Pmx)) 50 ml @ 100 mls/hr Q24H IVPB Last administered on 12/28/16 18:34; Admin Dose 100 MLS/HR; Start 12/27/16 at 18:00 Lorazepam (Ativan) 1 mg Q4H PRN PO AGITATION/ANXIETY Last administered on t 18:06; Admin Dose 1 MG; Start 12/28/16 at 18:30 GREGG DAVILA Dec 29, 2016 16:09
[2016-12-29] MEDS: CEFTRIAXONE 1 GM/50 ML (PMX) 50 ML IVPB SCH (17:23)
--- NOTE | 2016-12-29 18:23 | PN ---
DATE: 12/29/2016 SUBJECTIVE: No events overnight. The patient is lying comfortably in bed. No fevers. Family at [facility]. LABORATORY DATA: No labs this morning. ANTIMICROBIALS: Cefepime. MICROBIOLOGY: Urine culture grew Providencia stuartii. DIAGNOSTICS: Chest x-ray on admission revealed no evidence for active cardiopulmonary disease. CT of the brain revealed no acute intracranial abnormality. PHYSICAL EXAMINATION: GENERAL: This is a chronically ill-appearing, fragile, elderly woman who is lying comfortably in be d. HEENT: Head atraumatic, normocephalic. Sclerae anicteric. Buccal mucosa dry. NECK: Supple. CHEST: Rise symmetrical. Breath sounds diminished to bases. HEART: S1, S2. ABDOMEN: Soft. Bowel tones present. EXTREMITIES: No cyanosis. ASSESSMENT: 1. Systemic inflammatory response syndrome with low grade fevers on admission. 2. Resolving encephalopathy. 3. Urinary tract infection. 4. Hypertension. 5. History of cerebrovascular accident. PLAN: The patient remains stable. We will change antibiotics to Rocephin. Repeat chest x-ray in a .m. Continue present care. Follow recommendations of consultants. Dictated By: GAEL MCGEE BI ANALYST for [facility] Conf#: [id number] DID#: [id number] CC: FRED PENNINGTON MD;*End*
[2016-12-29 20:25] VITALS: BP 173/78; RESP 18
[2016-12-30 05:22] LABS: ADD SCAN DIFF NO
[2016-12-30 05:31] LABS: BASOPHILS % 0.6 % (0.0-2.0); EOSINOPHILS # 0.3 10^3/ul (0.0-0.5); EOSINOPHILS % 5.1 % (0.0-7.0); HEMOGLOBIN 10.2 g/dl (12.0-16.0); LYMPHOCYTES # 1.5 10^3/ul (0.8-2.9); LYMPHOCYTES % 29.1 % (15.0-51.0); MEAN CORPUSCULAR HEMOGLOBIN 32.5 pg (29.0-33.0); MEAN CORPUSCULAR HGB CONC 32.9 g/dl (32.0-37.0); MEAN CORPUSCULAR VOLUME 98.7 fl (82.0-101.0); MEAN PLATELET VOLUME 10.2 fl (7.4-10.4); MONOCYTE # 0.3 10^3/ul (0.3-0.9); MONOCYTES % 5.9 % (0.0-11.0); NEUTROPHILS % 58.9 % (39.0-77.0); PLATELET COUNT 201 10^3/UL (140-415); RED BLOOD COUNT 3.14 10^6/ul (4.20-5.40); RED CELL DISTRIBUTION WIDTH 13.2 % (11.5-14.5); WHITE BLOOD COUNT 5.1 10^3/ul (4.8-10.8)
[2016-12-30 05:52] LABS: CALCIUM 8.8 mg/dl (8.4-10.2); CREATININE 1.52 mg/dl (0.44-1.00); POTASSIUM 4.1 mmol/L (3.5-5.1)
[2016-12-30] MEDS: SOD CHLORIDE 0.45% 1,000 ML IV SCH ×3 (05:57→23:45)
[2016-12-30] MEDS: PANTOPRAZOLE (EC) 40 MG TAB PO SCH (05:57)
[2016-12-30 08:16] VITALS: BP 148/70; RESP 16
[2016-12-30] MEDS: METOPROLOL (XL) 50 MG TAB PO SCH (09:00)
[2016-12-30] MEDS: RALOXIFENE 60 MG TAB PO SCH (09:48)
[2016-12-30] MEDS: ASPIRIN 81 MG TAB PO SCH (09:48)
[2016-12-30] MEDS: FERROUS SULFATE (EC) 325 MG TAB PO SCH ×2 (09:48→20:06)
[2016-12-30] MEDS: MULTIVITAMINS THERAPEUTIC TAB PO SCH (09:49)
[2016-12-30] MEDS: ASCORBIC ACID 500 MG TAB PO SCH (09:49)
[2016-12-30] MEDS: FLUOXETINE 20 MG CAP PO SCH (09:49)
[2016-12-30] MEDS: MIRTAZAPINE 15 MG TAB PO SCH (09:49)
[2016-12-30] MEDS: ENOXAPARIN 30 MG/0.3 ML SYG SC SCH (10:00)
--- NOTE | 2016-12-30 13:51 | RADRPT ---
PROCEDURE: XR Chest. CLINICAL INDICATION: Pneumonia. TECHNIQUE: Single AP portable chest COMPARISON: 11/19/2015 Chest x-ray FINDINGS: The cardiomediastinal silhouette is within normal limits of size. Chronic elevation of the right hem idiaphragm. Atherosclerotic calcification of the aorta. Mild chronic interstitial fibrotic change . No focal consolidation new No pneumothorax. The osseous structures and soft tissues are unremarka ble. IMPRESSION: 1. No evidence for active cardiopulmonary disease. RPTAT:AAJJ Physician Paul Date Time Electronically viewed and signed by Physician Paul on 12/30/2016 13:51 RACHEL/
[2016-12-30] MEDS: CEFTRIAXONE 1 GM/50 ML (PMX) 50 ML IVPB SCH (17:10)
--- NOTE | 2016-12-30 17:20 | PN ---
Date/Time of Note Date/Time of Note DATE: 12/30/16 TIME: 17:15 Assessment/Plan VTE Prophylaxis VTE Prophylaxis Intervention: LMWH Lines/Catheters [facility] Type [facility] Peripheral IV Urinary Cath still in place: No Assessment/Plan Chief Complaint/Hosp Course Patient remains afebrile, looks comfortable in no acute events overnight. Problems: Assessment/Plan ASSESSMENT AND PLAN: 1. Acute cystitis. Continue Rocephin. Dr. Del Rio is following patient in infectious disease consultation. 2. Acute kidney injury on chronic kidney disease. Dr. Perez is following patient in nephrology consultation. Continue to monitor BUN and creatinine. 3. Acute metabolic encephalopathy secondary to infection. 4. Hypertension by history. 5. Hyperlipidemia. 6. History of cerebrovascular accident. 7. History of anxiety and depression. 8. Anemia of chronic disease. 9. History of gastroesophageal reflux disease. 10. History of left knee replacement. Continue Lovenox for deep venous thrombosis prophylaxis and Protonix for peptic ulcer disease prophylaxis. Further recommendations based on clinical course. Plan of care discussed with Dr. Rogers. Exam/Review of Systems Vital Signs Vitals Vital Signs Date Time Temp Pulse Resp B/P Pulse Ox O2 Delivery O2 Flow Rate FiO2 12/30/16 08:16 98.3 57 16 148/70 100 12/29/16 22:10 Nasal Cannula 2.0 Intake and Output 12/29/16 12/29/16 12/30/16 15:00 23:00 07:00 Intake Total 460 ml 390 ml 1150 ml Output Total 800 ml Balance 460 ml 390 ml 350 ml Exam Constitutional: alert, oriented Head: normocephalic Neck: supple Respiratory: normal air movement Cardiovascular: nl pulses Gastrointestinal: non-tender, soft Extremities: normal pulses Neurological: nl mental status Results Result Diagram: 12/30/16 0440 12/30/16 0440 Results 24 hrs Laboratory Tests Test 12/30/16 04:40 White Blood Count 5.1 Red Blood Count 3.14 L Hemoglobin 10.2 L Hematocrit 31.0 L Mean Corpuscular Volume 98.7 Mean Corpuscular Hemoglobin 32.5 Mean Corpuscular Hemoglobin Concent 32.9 Red Cell Distribution Width 13.2 Platelet Count 201 Mean Platelet Volume 10.2 Neutrophils % 58.9 Lymphocytes % 29.1 Monocytes % 5.9 Eosinophils % 5.1 Basophils % 0.6 Nucleated Red Blood Cells % 0.0 Neutrophils # 3.0 Lymphocytes # 1.5 Monocytes # 0.3 Eosinophils # 0.3 Basophils # 0.0 Nucleated Red Blood Cells # 0.0 Sodium Level 144 Potassium Level 4.1 Chloride Level 116 H Carbon Dioxide Level 20 L Anion Gap 12 Blood Urea Nitrogen 28 H Creatinine 1.52 H Glucose Level 81 Calcium Level 8.8 Medications Medications Current Medications Sodium Chloride (1/2 NS) 1,000 ml @ 60 mls/hr [id number] IV Last administered on 12/30/16 05:57; Admin Dose 60 MLS/HR; Start 12/27/16 at 00:00 Acetaminophen (Tylenol Tab) 650 mg Q6H PRN PO PAIN AND OR ELEVATED TEMP Last administered on 12/29/16 05:14; Admin Dose 650 MG; Start 12/27/16 at 00:00 Enoxaparin Sodium (Lovenox) 30 mg DAILY SC Last administered on 12/30/16 10:00 ; Admin Dose 30 MG; Start 12/27/16 at 09:00 Aspirin (Aspirin) 81 mg DAILY PO Last administered on 12/30/16 09:48; Admin Dose 81 MG; Start 12/27/16 at 09:00 Ascorbic Acid (Vitamin C) 500 mg DAILY PO Last administered on 12/30/16 09:49 ; Admin Dose 500 MG; Start 12/27/16 at 09:00 Ferrous Sulfate (Ferrous Sulfate (Ec)) 325 mg BID PO Last administered on 09:48; Admin Dose 325 MG; Start 12/27/16 at 09:00 Fluoxetine HCl (Prozac) 20 mg DAILY PO Last administered on 12/30/16 09:49; Admin Dose 20 MG; Start 12/27/16 at 09:00 Metoprolol Succinate (Toprol Xl) 50 mg DAILY PO Last administered on 12/29/16 08:44; Admin Dose 50 MG; Start 12/27/16 at 09:00 Mirtazapine (Remeron) 15 mg QAM PO Last administered on 12/30/16 09:49; Admin Dose 15 MG; Start 12/27/16 at 09:00 Multivitamins Therapeutic (Theragran) 1 tab DAILY PO Last administered on 09:49; Admin Dose 1 TAB; Start 12/27/16 at 09:00 Raloxifene HCl (Evista) 60 mg DAILY PO Last administered on 12/30/16 09:48; Admin Dose 60 MG; Start 12/27/16 at 09:00 Pantoprazole (Protonix Tab) 40 mg DAILY@06 PO Last administered on 12/30/16 05 :57; Admin Dose 40 MG; Start 12/27/16 at 06:00 Lorazepam 1 mg 1 mg Q4H PRN PO AGITATION/ANXIETY Last administered on 18:06; Admin Dose 1 MG; Start 12/28/16 at 18:30 Ceftriaxone Sodium (Rocephin) 50 ml @ 100 mls/hr Q24H IVPB Last administered on 12/30/16 17:10; Admin Dose 100 MLS/HR; Start 12/29/16 at 17:30 PALMA WILL Dec 30, 2016 17:20
--- NOTE | 2016-12-30 18:43 | CONS ---
Date/Time of Note Date/Time of Note DATE: 12/30/16 TIME: 18:42 Assessment/Plan Assessment/Plan Additional Assessment/Plan 1. Acute kidney injury versus acute kidney injury on chronic kidney disease, likely secondary to prerenal azotemia and also secondary to urinary tract infection. 2. Acute urinary tract infection causing altered mental status. 3. Altered mental status, unclear etiology, possibly secondary to urinary tract infection. 4. History of possible chronic kidney disease secondary to hypertension and diabetes. 5. History of hypertension. 6. History of hyperlipidemia. 7. History of previous cerebrovascular accident. 8. History of borderline diabetes mellitus. PLAN: IV Ceftriaxone for UTI Cr improved to 1.5 conitnue to monitor Cr and electrolytes, will follow up Consultation Date/Type/Reason Admit Date/Time Dec 26, 2016 at 21:23 Type of Consultation: NEPHROLOGOY Referring Provider: FRED PENNINGTON MD Exam/Review of Systems Vital Signs Vitals Vital Signs Date Time Temp Pulse Resp B/P Pulse Ox O2 Delivery O2 Flow Rate FiO2 12/30/16 08:16 98.3 57 16 148/70 100 12/29/16 22:10 Nasal Cannula 2.0 Intake and Output 12/29/16 12/29/16 12/30/16 15:00 23:00 07:00 Intake Total 460 ml 390 ml 1150 ml Output Total 800 ml Balance 460 ml 390 ml 350 ml Exam GENERAL: Awake, alert, but not oriented to the place, person and time. HEENT: Pupils equal, round, reactive to light and accommodation. Extraocular muscles are anicteric. The patient has a right facial laceration with dry mucous membranes. NECK: Supple, no JVD, no lymphadenopathy. LUNGS: Decreased breath sounds at both lung bases, right middle lobe, right lower lobe basilar rales present. HEART: S1, S2, tachycardia, no murmur. ABDOMEN: Soft, nontender, nondistended. Bowel sounds are present. EXTREMITIES: No clubbing, cyanosis, or edema. The patient is able to move all 4 extremities. Strength 5/5 in all extremities. NEUROLOGIC: Alert, but not oriented to the place, person and time. No focal deficits. PSYCHIATRIC: Appropriate affect and mood, but the patient's family said that she has been hallucinating at home. Results Result Diagram: 6/26/17 0440 6/26/17 0440 Results 24 hrs Laboratory Tests Test 12/30/16 04:40 White Blood Count 5.1 Red Blood Count 3.14 L Hemoglobin 10.2 L Hematocrit 31.0 L Mean Corpuscular Volume 98.7 Mean Corpuscular Hemoglobin 32.5 Mean Corpuscular Hemoglobin Concent 32.9 Red Cell Distribution Width 13.2 Platelet Count 201 Mean Platelet Volume 10.2 Neutrophils % 58.9 Lymphocytes % 29.1 Monocytes % 5.9 Eosinophils % 5.1 Basophils % 0.6 Nucleated Red Blood Cells % 0.0 Neutrophils # 3.0 Lymphocytes # 1.5 Monocytes # 0.3 Eosinophils # 0.3 Basophils # 0.0 Nucleated Red Blood Cells # 0.0 Sodium Level 144 Potassium Level 4.1 Chloride Level 116 H Carbon Dioxide Level 20 L Anion Gap 12 Blood Urea Nitrogen 28 H Creatinine 1.52 H Glucose Level 81 Calcium Level 8.8 Medications Medications Current Medications Sodium Chloride (1/2 NS) 1,000 ml @ 60 mls/hr [id number] IV Last administered on 12/30/16 05:57; Admin Dose 60 MLS/HR; Start 12/27/16 at 00:00 Acetaminophen (Tylenol Tab) 650 mg Q6H PRN PO PAIN AND OR ELEVATED TEMP Last administered on 12/29/16 05:14; Admin Dose 650 MG; Start 12/27/16 at 00:00 Enoxaparin Sodium (Lovenox) 30 mg DAILY SC Last administered on 12/30/16 10:00 ; Admin Dose 30 MG; Start 12/27/16 at 09:00 Aspirin (Aspirin) 81 mg DAILY PO Last administered on 12/30/16 09:48; Admin Dose 81 MG; Start 12/27/16 at 09:00 Ascorbic Acid (Vitamin C) 500 mg DAILY PO Last administered on 12/30/16 09:49 ; Admin Dose 500 MG; Start 12/27/16 at 09:00 Ferrous Sulfate (Ferrous Sulfate (Ec)) 325 mg BID PO Last administered on 09:48; Admin Dose 325 MG; Start 12/27/16 at 09:00 Fluoxetine HCl (Prozac) 20 mg DAILY PO Last administered on 12/30/16 09:49; Admin Dose 20 MG; Start 12/27/16 at 09:00 Metoprolol Succinate (Toprol Xl) 50 mg DAILY PO Last administered on 12/29/16 08:44; Admin Dose 50 MG; Start 12/27/16 at 09:00 Mirtazapine (Remeron) 15 mg QAM PO Last administered on 12/30/16 09:49; Admin Dose 15 MG; Start 12/27/16 at 09:00 Multivitamins Therapeutic (Theragran) 1 tab DAILY PO Last administered on 09:49; Admin Dose 1 TAB; Start 12/27/16 at 09:00 Raloxifene HCl (Evista) 60 mg DAILY PO Last administered on 12/30/16 09:48; Admin Dose 60 MG; Start 12/27/16 at 09:00 Pantoprazole 40 mg 40 mg DAILY@06 PO Last administered on 12/30/16 05:57; Admin Dose 40 MG; Start 12/27/16 at 06:00 Ceftriaxone Sodium (Rocephin) 50 ml @ 100 mls/hr Q24H IVPB Last administered on 12/30/16 17:10; Admin Dose 100 MLS/HR; Start 12/29/16 at 17:30 DILSHAD PAIZ MD Dec 30, 2016 18:43
[2016-12-30 19:12] VITALS: BP 162/74; RESP 18
[2016-12-31 01:01] VITALS: BP 128/64; PULSE 53; RESP 16
[2016-12-31 05:18] LABS: ADD SCAN DIFF NO
[2016-12-31 05:30] LABS: BASOPHILS % 0.4 % (0.0-2.0); EOSINOPHILS # 0.2 10^3/ul (0.0-0.5); EOSINOPHILS % 4.3 % (0.0-7.0); HEMATOCRIT 30.6 % (37.0-47.0); HEMOGLOBIN 9.9 g/dl (12.0-16.0); LYMPHOCYTES # 1.5 10^3/ul (0.8-2.9); MEAN CORPUSCULAR HEMOGLOBIN 32.1 pg (29.0-33.0); MEAN CORPUSCULAR HGB CONC 32.4 g/dl (32.0-37.0); MEAN CORPUSCULAR VOLUME 99.4 fl (82.0-101.0); MEAN PLATELET VOLUME 10.4 fl (7.4-10.4); MONOCYTE # 0.4 10^3/ul (0.3-0.9); MONOCYTES % 7.3 % (0.0-11.0); NEUTROPHIL # 3.2 10^3/ul (1.6-7.5); NEUTROPHILS % 59.3 % (39.0-77.0); PLATELET COUNT 194 10^3/UL (140-415); RED BLOOD COUNT 3.08 10^6/ul (4.20-5.40); RED CELL DISTRIBUTION WIDTH 13.3 % (11.5-14.5); WHITE BLOOD COUNT 5.4 10^3/ul (4.8-10.8)
[2016-12-31] MEDS: PANTOPRAZOLE (EC) 40 MG TAB PO SCH (05:58)
[2016-12-31 05:59] LABS: CALCIUM 8.5 mg/dl (8.4-10.2); CREATININE 1.52 mg/dl (0.44-1.00); POTASSIUM 4.3 mmol/L (3.5-5.1)
[2016-12-31 08:11] VITALS: BP 141/66; RESP 14
[2016-12-31] MEDS: METOPROLOL (XL) 50 MG TAB PO SCH (09:00)
[2016-12-31] MEDS: ASCORBIC ACID 500 MG TAB PO SCH (09:09)
[2016-12-31] MEDS: FERROUS SULFATE (EC) 325 MG TAB PO SCH ×2 (09:09→21:04)
[2016-12-31] MEDS: RALOXIFENE 60 MG TAB PO SCH (09:09)
[2016-12-31] MEDS: MIRTAZAPINE 15 MG TAB PO SCH (09:09)
[2016-12-31] MEDS: FLUOXETINE 20 MG CAP PO SCH (09:09)
[2016-12-31] MEDS: ASPIRIN 81 MG TAB PO SCH (09:09)
[2016-12-31] MEDS: ENOXAPARIN 30 MG/0.3 ML SYG SC SCH (09:14)
[2016-12-31] MEDS: MULTIVITAMINS THERAPEUTIC TAB PO SCH (09:15)
--- NOTE | 2016-12-31 12:36 | CONS ---
Date/Time of Note Date/Time of Note DATE: 12/31/16 TIME: 12:34 Assessment/Plan Assessment/Plan Chief Complaint/Hosp Course SUBJECTIVE: No events overnight. The patient is lying comfortably in bed. No fevers. ANTIMICROBIALS: Rocephin MICROBIOLOGY: Urine culture grew Providencia stuartii. DIAGNOSTICS: Chest x-ray negative PHYSICAL EXAMINATION: GENERAL: This is a chronically ill-appearing, fragile, elderly woman who is lying comfortably in bed. HEENT: Head atraumatic, normocephalic. Sclerae anicteric. Buccal mucosa dry. NECK: Supple. CHEST: Rise symmetrical. Breath sounds diminished to bases. HEART: S1, S2. ABDOMEN: Soft. Bowel tones present. EXTREMITIES: No cyanosis. ASSESSMENT: 1. S/p systemic inflammatory response syndrome with low grade fevers on admission. 2. Resolving encephalopathy. 3. Urinary tract infection. 4. Hypertension. 5. History of cerebrovascular accident. PLAN: The patient remains stable. Completing abx DW staff Problems: Consultation Date/Type/Reason Admit Date/Time Dec 26, 2016 at 21:23 Initial Consult Date Type of Consultation: ID Referring Provider: FRED PENNINGTON MD Exam/Review of Systems Vital Signs Vitals Vital Signs Date Time Temp Pulse Resp B/P Pulse Ox O2 Delivery O2 Flow Rate FiO2 12/31/16 08:11 98.6 55 14 141/66 100 12/30/16 19:11 Nasal Cannula 2.0 Intake and Output 12/30/16 12/30/16 12/31/16 14:59 22:59 06:59 Intake Total 1460 ml 1140 ml Balance 1460 ml 1140 ml Results Result Diagram: 12/31/16 0435 12/31/16 0435 Results 24 hrs Laboratory Tests Test 12/31/16 04:35 White Blood Count 5.4 Red Blood Count 3.08 L Hemoglobin 9.9 L Hematocrit 30.6 L Mean Corpuscular Volume 99.4 Mean Corpuscular Hemoglobin 32.1 Mean Corpuscular Hemoglobin Concent 32.4 Red Cell Distribution Width 13.3 Platelet Count 194 Mean Platelet Volume 10.4 Neutrophils % 59.3 Lymphocytes % 28.0 Monocytes % 7.3 Eosinophils % 4.3 Basophils % 0.4 Nucleated Red Blood Cells % 0.0 Neutrophils # 3.2 Lymphocytes # 1.5 Monocytes # 0.4 Eosinophils # 0.2 Basophils # 0.0 Nucleated Red Blood Cells # 0.0 Sodium Level 146 H Potassium Level 4.3 Chloride Level 118 H Carbon Dioxide Level 20 L Anion Gap 12 Blood Urea Nitrogen 28 H Creatinine 1.52 H Glucose Level 95 Calcium Level 8.5 Medications Medications Current Medications Sodium Chloride (1/2 NS) 1,000 ml @ 60 mls/hr [id number] IV Last administered on 12/30/16 23:45; Admin Dose 60 MLS/HR; Start 12/27/16 at 00:00 Acetaminophen (Tylenol Tab) 650 mg Q6H PRN PO PAIN AND OR ELEVATED TEMP Last administered on 12/29/16 05:14; Admin Dose 650 MG; Start 12/27/16 at 00:00 Enoxaparin Sodium (Lovenox) 30 mg DAILY SC Last administered on 12/31/16 09:14 ; Admin Dose 30 MG; Start 12/27/16 at 09:00 Aspirin (Aspirin) 81 mg DAILY PO Last administered on 12/31/16 09:09; Admin Dose 81 MG; Start 12/27/16 at 09:00 Ascorbic Acid (Vitamin C) 500 mg DAILY PO Last administered on 12/31/16 09:09 ; Admin Dose 500 MG; Start 12/27/16 at 09:00 Ferrous Sulfate (Ferrous Sulfate (Ec)) 325 mg BID PO Last administered on 09:09; Admin Dose 325 MG; Start 12/27/16 at 09:00 Fluoxetine HCl (Prozac) 20 mg DAILY PO Last administered on 12/31/16 09:09; Admin Dose 20 MG; Start 12/27/16 at 09:00 Metoprolol Succinate (Toprol Xl) 50 mg DAILY PO Last administered on 12/29/16 08:44; Admin Dose 50 MG; Start 12/27/16 at 09:00 Mirtazapine (Remeron) 15 mg QAM PO Last administered on 12/31/16 09:09; Admin Dose 15 MG; Start 12/27/16 at 09:00 Multivitamins Therapeutic (Theragran) 1 tab DAILY PO Last administered on 09:15; Admin Dose 1 TAB; Start 12/27/16 at 09:00 Raloxifene HCl (Evista) 60 mg DAILY PO Last administered on 12/31/16 09:09; Admin Dose 60 MG; Start 12/27/16 at 09:00 Pantoprazole 40 mg 40 mg DAILY@06 PO Last administered on 12/31/16 05:58; Admin Dose 40 MG; Start 12/27/16 at 06:00 Ceftriaxone Sodium (Rocephin) 50 ml @ 100 mls/hr Q24H IVPB Last administered on 12/30/16 17:10; Admin Dose 100 MLS/HR; Start 12/29/16 at 17:30 GAEL MCGEE NP Dec 31, 2016 12:36
--- NOTE | 2016-12-31 13:57 | PN ---
Date/Time of Note Date/Time of Note DATE: 12/31/16 TIME: 13:56 Assessment/Plan VTE Prophylaxis VTE Prophylaxis Intervention: SCD's Lines/Catheters IV [facility]from [facility] Peripheral IV Urinary Cath still in place: No Assessment/Plan Chief Complaint/Hosp Course Patient remains afebrile, hemodynamically stable, awaits PT evaluation and treatment. Assessment/Plan 1. Acute cystitis. Continue Rocephin. Dr. Del Rio is following patient in infectious disease consultation. 2. Acute kidney injury on chronic kidney disease. Dr. Perez is following patient in nephrology consultation. Continue to monitor BUN and creatinine. 3. Acute metabolic encephalopathy secondary to infection. 4. Hypertension by history. 5. Hyperlipidemia. 6. History of cerebrovascular accident. 7. History of anxiety and depression. 8. Anemia of chronic disease. 9. History of gastroesophageal reflux disease. 10. History of left knee replacement. Continue Lovenox for deep venous thrombosis prophylaxis and Protonix for peptic ulcer disease prophylaxis. Further recommendations based on clinical course. Plan of care discussed with Dr. Rogers. Problems: Exam/Review of Systems Vital Signs Vitals Vital Signs Date Time Temp Pulse Resp B/P Pulse Ox O2 Delivery O2 Flow Rate FiO2 12/31/16 08:11 98.6 55 14 141/66 100 12/30/16 19:11 Nasal Cannula 2.0 Intake and Output 12/30/16 12/30/16 12/31/16 15:00 23:00 07:00 Intake Total 1460 ml 1140 ml Balance 1460 ml 1140 ml Exam Constitutional: alert, oriented Head: normocephalic Neck: supple Respiratory: normal air movement Cardiovascular: nl pulses Gastrointestinal: non-tender, soft Extremities: normal pulses Neurological: nl mental status Results Result Diagram: 12/31/16 0435 12/31/16 0435 Results 24 hrs Laboratory Tests Test 12/31/16 04:35 White Blood Count 5.4 Red Blood Count 3.08 L Hemoglobin 9.9 L Hematocrit 30.6 L Mean Corpuscular Volume 99.4 Mean Corpuscular Hemoglobin 32.1 Mean Corpuscular Hemoglobin Concent 32.4 Red Cell Distribution Width 13.3 Platelet Count 194 Mean Platelet Volume 10.4 Neutrophils % 59.3 Lymphocytes % 28.0 Monocytes % 7.3 Eosinophils % 4.3 Basophils % 0.4 Nucleated Red Blood Cells % 0.0 Neutrophils # 3.2 Lymphocytes # 1.5 Monocytes # 0.4 Eosinophils # 0.2 Basophils # 0.0 Nucleated Red Blood Cells # 0.0 Sodium Level 146 H Potassium Level 4.3 Chloride Level 118 H Carbon Dioxide Level 20 L Anion Gap 12 Blood Urea Nitrogen 28 H Creatinine 1.52 H Glucose Level 95 Calcium Level 8.5 Medications Medications Current Medications Sodium Chloride (1/2 NS) 1,000 ml @ 60 mls/hr [id number] IV Last administered on 12/30/16 23:45; Admin Dose 60 MLS/HR; Start 12/27/16 at 00:00 Acetaminophen (Tylenol Tab) 650 mg Q6H PRN PO PAIN AND OR ELEVATED TEMP Last administered on 12/29/16 05:14; Admin Dose 650 MG; Start 12/27/16 at 00:00 Enoxaparin Sodium (Lovenox) 30 mg DAILY SC Last administered on 12/31/16 09:14 ; Admin Dose 30 MG; Start 12/27/16 at 09:00 Aspirin (Aspirin) 81 mg DAILY PO Last administered on 12/31/16 09:09; Admin Dose 81 MG; Start 12/27/16 at 09:00 Ascorbic Acid (Vitamin C) 500 mg DAILY PO Last administered on 12/31/16 09:09 ; Admin Dose 500 MG; Start 12/27/16 at 09:00 Ferrous Sulfate (Ferrous Sulfate (Ec)) 325 mg BID PO Last administered on 09:09; Admin Dose 325 MG; Start 12/27/16 at 09:00 Fluoxetine HCl (Prozac) 20 mg DAILY PO Last administered on 12/31/16 09:09; Admin Dose 20 MG; Start 12/27/16 at 09:00 Metoprolol Succinate (Toprol Xl) 50 mg DAILY PO Last administered on 12/29/16 08:44; Admin Dose 50 MG; Start 12/27/16 at 09:00 Mirtazapine (Remeron) 15 mg QAM PO Last administered on 12/31/16 09:09; Admin Dose 15 MG; Start 12/27/16 at 09:00 Multivitamins Therapeutic (Theragran) 1 tab DAILY PO Last administered on 09:15; Admin Dose 1 TAB; Start 12/27/16 at 09:00 Raloxifene HCl (Evista) 60 mg DAILY PO Last administered on 12/31/16 09:09; Admin Dose 60 MG; Start 12/27/16 at 09:00 Pantoprazole 40 mg 40 mg DAILY@06 PO Last administered on 12/31/16 05:58; Admin Dose 40 MG; Start 12/27/16 at 06:00 Ceftriaxone Sodium (Rocephin) 50 ml @ 100 mls/hr Q24H IVPB Last administered on 12/30/16 17:10; Admin Dose 100 MLS/HR; Start 12/29/16 at 17:30 PALMA WILL Dec 31, 2016 13:57
--- NOTE | 2016-12-31 17:27 | CONS ---
Date/Time of Note Date/Time of Note DATE: 12/31/16 TIME: 17:25 Assessment/Plan Assessment/Plan Additional Assessment/Plan 1. Acute kidney injury versus acute kidney injury on chronic kidney disease, likely secondary to prerenal azotemia and also secondary to urinary tract infection. 2. Acute urinary tract infection causing altered mental status. 3. Altered mental status, unclear etiology, possibly secondary to urinary tract infection. 4. History of possible chronic kidney disease secondary to hypertension and diabetes. 5. History of hypertension. 6. History of hyperlipidemia. 7. History of previous cerebrovascular accident. 8. History of borderline diabetes mellitus. PLAN: IV Ceftriaxone for UTI Cr improved to 1.5 Na 146, HCo3 silghtly low, pt is developeing hyperchloremic metabolic acidosis with hypernatremia, d/c Current IVF 1/2 NS, start D51/2 NS at 60 cc/hr will follow up Consultation Date/Type/Reason Admit Date/Time Dec 26, 2016 at 21:23 Type of Consultation: NEPHROLOGY Referring Provider: FRED PENNINGTON MD 24 HR Interval Summary Free Text/Dictation Na 146, Cr 1.5, no acute events overnight Exam/Review of Systems Vital Signs Vitals Vital Signs Date Time Temp Pulse Resp B/P Pulse Ox O2 Delivery O2 Flow Rate FiO2 12/31/16 08:11 98.6 55 14 141/66 100 12/30/16 19:11 Nasal Cannula 2.0 Intake and Output 12/30/16 12/30/16 12/31/16 15:00 23:00 07:00 Intake Total 1460 ml 1140 ml Balance 1460 ml 1140 ml Results Result Diagram: 12/31/16 0435 12/31/16 0435 Results 24 hrs Laboratory Tests Test 12/31/16 04:35 White Blood Count 5.4 Red Blood Count 3.08 L Hemoglobin 9.9 L Hematocrit 30.6 L Mean Corpuscular Volume 99.4 Mean Corpuscular Hemoglobin 32.1 Mean Corpuscular Hemoglobin Concent 32.4 Red Cell Distribution Width 13.3 Platelet Count 194 Mean Platelet Volume 10.4 Neutrophils % 59.3 Lymphocytes % 28.0 Monocytes % 7.3 Eosinophils % 4.3 Basophils % 0.4 Nucleated Red Blood Cells % 0.0 Neutrophils # 3.2 Lymphocytes # 1.5 Monocytes # 0.4 Eosinophils # 0.2 Basophils # 0.0 Nucleated Red Blood Cells # 0.0 Sodium Level 146 H Potassium Level 4.3 Chloride Level 118 H Carbon Dioxide Level 20 L Anion Gap 12 Blood Urea Nitrogen 28 H Creatinine 1.52 H Glucose Level 95 Calcium Level 8.5 Medications Medications Current Medications Sodium Chloride (1/2 NS) 1,000 ml @ 60 mls/hr [id number] IV Last administered on 12/30/16 23:45; Admin Dose 60 MLS/HR; Start 12/27/16 at 00:00 Acetaminophen (Tylenol Tab) 650 mg Q6H PRN PO PAIN AND OR ELEVATED TEMP Last administered on 12/29/16 05:14; Admin Dose 650 MG; Start 12/27/16 at 00:00 Enoxaparin Sodium (Lovenox) 30 mg DAILY SC Last administered on 12/31/16 09:14 ; Admin Dose 30 MG; Start 12/27/16 at 09:00 Aspirin (Aspirin) 81 mg DAILY PO Last administered on 12/31/16 09:09; Admin Dose 81 MG; Start 12/27/16 at 09:00 Ascorbic Acid (Vitamin C) 500 mg DAILY PO Last administered on 12/31/16 09:09 ; Admin Dose 500 MG; Start 12/27/16 at 09:00 Ferrous Sulfate (Ferrous Sulfate (Ec)) 325 mg BID PO Last administered on 09:09; Admin Dose 325 MG; Start 12/27/16 at 09:00 Fluoxetine HCl (Prozac) 20 mg DAILY PO Last administered on 12/31/16 09:09; Admin Dose 20 MG; Start 12/27/16 at 09:00 Metoprolol Succinate (Toprol Xl) 50 mg DAILY PO Last administered on 12/29/16 08:44; Admin Dose 50 MG; Start 12/27/16 at 09:00 Mirtazapine (Remeron) 15 mg QAM PO Last administered on 12/31/16 09:09; Admin Dose 15 MG; Start 12/27/16 at 09:00 Multivitamins Therapeutic (Theragran) 1 tab DAILY PO Last administered on 09:15; Admin Dose 1 TAB; Start 12/27/16 at 09:00 Raloxifene HCl (Evista) 60 mg DAILY PO Last administered on 12/31/16 09:09; Admin Dose 60 MG; Start 12/27/16 at 09:00 Pantoprazole 40 mg 40 mg DAILY@06 PO Last administered on 12/31/16 05:58; Admin Dose 40 MG; Start 12/27/16 at 06:00 Ceftriaxone Sodium (Rocephin) 50 ml @ 100 mls/hr Q24H IVPB Last administered on 12/30/16 17:10; Admin Dose 100 MLS/HR; Start 12/29/16 at 17:30 DILSHAD PAIZ MD Dec 31, 2016 17:27
[2016-12-31] MEDS: DEXTROSE 5%-0.45% NACL 1,000 ML IV SCH (17:50)
[2016-12-31] MEDS: CEFTRIAXONE 1 GM/50 ML (PMX) 50 ML IVPB SCH (17:50)
[2016-12-31 19:38] VITALS: BP 154/69; RESP 18
[2017-01-01 05:25] LABS: ADD SCAN DIFF NO
[2017-01-01 05:37] LABS: BASOPHILS % 0.5 % (0.0-2.0); EOSINOPHILS # 0.3 10^3/ul (0.0-0.5); HEMATOCRIT 30.8 % (37.0-47.0); HEMOGLOBIN 9.9 g/dl (12.0-16.0); LYMPHOCYTES # 1.6 10^3/ul (0.8-2.9); LYMPHOCYTES % 24.3 % (15.0-51.0); MEAN CORPUSCULAR HEMOGLOBIN 31.9 pg (29.0-33.0); MEAN CORPUSCULAR HGB CONC 32.1 g/dl (32.0-37.0); MEAN CORPUSCULAR VOLUME 99.4 fl (82.0-101.0); MEAN PLATELET VOLUME 10.4 fl (7.4-10.4); MONOCYTE # 0.4 10^3/ul (0.3-0.9); MONOCYTES % 6.8 % (0.0-11.0); NEUTROPHIL # 4.1 10^3/ul (1.6-7.5); NEUTROPHILS % 63.9 % (39.0-77.0); PLATELET COUNT 213 10^3/UL (140-415); RED CELL DISTRIBUTION WIDTH 13.4 % (11.5-14.5); WHITE BLOOD COUNT 6.5 10^3/ul (4.8-10.8)
[2017-01-01 06:19] LABS: CALCIUM 8.5 mg/dl (8.4-10.2); CREATININE 1.44 mg/dl (0.44-1.00); POTASSIUM 4.2 mmol/L (3.5-5.1)
[2017-01-01] MEDS: PANTOPRAZOLE (EC) 40 MG TAB PO SCH (06:28)
[2017-01-01 08:00] VITALS: BP 160/74
[2017-01-01 09:08] VITALS: RESP 18
[2017-01-01] MEDS: ENOXAPARIN 30 MG/0.3 ML SYG SC SCH (09:10)
[2017-01-01] MEDS: RALOXIFENE 60 MG TAB PO SCH (09:13)
[2017-01-01] MEDS: MIRTAZAPINE 15 MG TAB PO SCH (09:13)
[2017-01-01] MEDS: ASPIRIN 81 MG TAB PO SCH (09:13)
[2017-01-01] MEDS: MULTIVITAMINS THERAPEUTIC TAB PO SCH (09:13)
[2017-01-01] MEDS: FLUOXETINE 20 MG CAP PO SCH (09:13)
[2017-01-01] MEDS: FERROUS SULFATE (EC) 325 MG TAB PO SCH ×2 (09:13→20:30)
[2017-01-01] MEDS: ASCORBIC ACID 500 MG TAB PO SCH (09:13)
[2017-01-01] MEDS: METOPROLOL (XL) 50 MG TAB PO SCH (09:14)
[2017-01-01] MEDS: DEXTROSE 5%-0.45% NACL 1,000 ML IV SCH (11:43)
--- NOTE | 2017-01-01 12:11 | CONS ---
Date/Time of Note Date/Time of Note DATE: 01/01/17 TIME: 12:10 Assessment/Plan Assessment/Plan Chief Complaint/Hosp Course SUBJECTIVE: Awake, responsive, family at bedside. No fevers no acute events ANTIMICROBIALS: Rocephin MICROBIOLOGY: Urine culture grew Providencia stuartii. DIAGNOSTICS: Chest x-ray negative PHYSICAL EXAMINATION: GENERAL: This is a chronically ill-appearing, fragile, elderly woman who is lying comfortably in bed. HEENT: Head atraumatic, normocephalic. Sclerae anicteric. Buccal mucosa dry. NECK: Supple. CHEST: Rise symmetrical. Breath sounds diminished to bases. HEART: S1, S2. ABDOMEN: Soft. Bowel tones present. EXTREMITIES: No cyanosis. ASSESSMENT: 1. S/p systemic inflammatory response syndrome with low grade fevers on admission. 2. Resolving encephalopathy. 3. Urinary tract infection. 4. Hypertension. 5. History of cerebrovascular accident. PLAN: The patient remains stable. We will discontinue antibiotics in a.m. DW staff Problems: Consultation Date/Type/Reason Admit Date/Time Dec 26, 2016 at 21:23 Type of Consultation: Infectious disease Referring Provider: FRED PENNINGTON MD Exam/Review of Systems Vital Signs Vitals Vital Signs Date Time Temp Pulse Resp B/P Pulse Ox O2 Delivery O2 Flow Rate FiO2 01/01/17 09:08 18 01/01/17 08:00 Nasal Cannula 2.0 01/01/17 08:00 98.7 70 160/74 100 Intake and Output 12/31/16 12/31/16 01/01/17 15:00 23:00 07:00 Intake Total 1350 ml 1100 ml Balance 1350 ml 1100 ml Results Result Diagram: 01/01/17 0415 01/01/17 0415 Results 24 hrs Laboratory Tests Test 01/01/17 04:15 White Blood Count 6.5 # Red Blood Count 3.10 L Hemoglobin 9.9 L Hematocrit 30.8 L Mean Corpuscular Volume 99.4 Mean Corpuscular Hemoglobin 31.9 Mean Corpuscular Hemoglobin Concent 32.1 Red Cell Distribution Width 13.4 Platelet Count 213 Mean Platelet Volume 10.4 Neutrophils % 63.9 Lymphocytes % 24.3 Monocytes % 6.8 Eosinophils % 4.0 Basophils % 0.5 Nucleated Red Blood Cells % 0.0 Neutrophils # 4.1 Lymphocytes # 1.6 Monocytes # 0.4 Eosinophils # 0.3 Basophils # 0.0 Nucleated Red Blood Cells # 0.0 Sodium Level 142 Potassium Level 4.2 Chloride Level 116 H Carbon Dioxide Level 21 Anion Gap 9 Blood Urea Nitrogen 26 H Creatinine 1.44 H Glucose Level 106 Calcium Level 8.5 Medications Medications Current Medications Acetaminophen (Tylenol Tab) 650 mg Q6H PRN PO PAIN AND OR ELEVATED TEMP Last administered on 12/29/16 05:14; Admin Dose 650 MG; Start 12/27/16 at 00:00 Enoxaparin Sodium (Lovenox) 30 mg DAILY SC Last administered on 01/01/17 09:10 ; Admin Dose 30 MG; Start 12/27/16 at 09:00 Aspirin (Aspirin) 81 mg DAILY PO Last administered on 01/01/17 09:13; Admin Dose 81 MG; Start 12/27/16 at 09:00 Ascorbic Acid (Vitamin C) 500 mg DAILY PO Last administered on 01/01/17 09:13 ; Admin Dose 500 MG; Start 12/27/16 at 09:00 Ferrous Sulfate (Ferrous Sulfate (Ec)) 325 mg BID PO Last administered on 09:13; Admin Dose 325 MG; Start 12/27/16 at 09:00 Fluoxetine HCl (Prozac) 20 mg DAILY PO Last administered on 01/01/17 09:13; Admin Dose 20 MG; Start 12/27/16 at 09:00 Metoprolol Succinate (Toprol Xl) 50 mg DAILY PO Last administered on 01/01/17 09:14; Admin Dose 50 MG; Start 12/27/16 at 09:00 Mirtazapine (Remeron) 15 mg QAM PO Last administered on 01/01/17 09:13; Admin Dose 15 MG; Start 12/27/16 at 09:00 Multivitamins Therapeutic (Theragran) 1 tab DAILY PO Last administered on 09:13; Admin Dose 1 TAB; Start 12/27/16 at 09:00 Raloxifene HCl (Evista) 60 mg DAILY PO Last administered on 01/01/17 09:13; Admin Dose 60 MG; Start 12/27/16 at 09:00 Pantoprazole 40 mg 40 mg DAILY@06 PO Last administered on 01/01/17 06:28; Admin Dose 40 MG; Start 12/27/16 at 06:00 Ceftriaxone Sodium 50 ml @ 100 mls/hr Q24H IVPB Last administered on 17:50; Admin Dose 100 MLS/HR; Start 12/29/16 at 17:30 Dextrose/Sodium Chloride (D5-1/2ns) 1,000 ml @ 60 mls/hr [id number] IV Last administered on 01/01/17 11:43; Admin Dose 60 MLS/HR; Start 12/31/16 at 17:30 GAEL MCGEE NP Jan 01, 2017 12:10
--- NOTE | 2017-01-01 16:33 | PN ---
Date/Time of Note Date/Time of Note DATE: 01/01/17 TIME: 16:29 Assessment/Plan VTE Prophylaxis VTE Prophylaxis Intervention: SCD's Lines/Catheters IV [facility] Peripheral IV Urinary Cath still in place: No Assessment/Plan Chief Complaint/Hosp Course No acute events overnight, patient with decreased mobility and recommendation from physical therapy for 24-hour care, case management for possible intermediate facility placement. Assessment/Plan 1. Acute cystitis. Continue Rocephin. Dr. Del Rio is following patient in infectious disease consultation. 2. Acute kidney injury on chronic kidney disease. Dr. Perez is following patient in nephrology consultation. Continue to monitor BUN and creatinine. 3. Acute metabolic encephalopathy secondary to infection. 4. Hypertension by history. 5. Hyperlipidemia. 6. History of cerebrovascular accident. 7. History of anxiety and depression. 8. Anemia of chronic disease. 9. History of gastroesophageal reflux disease. 10. History of left knee replacement with decreased mobility. Continue Lovenox for deep venous thrombosis prophylaxis and Protonix for peptic ulcer disease prophylaxis. Further recommendations based on clinical course. Plan of care discussed with Dr. Rogers. Problems: Exam/Review of Systems Vital Signs Vitals Vital Signs Date Time Temp Pulse Resp B/P Pulse Ox O2 Delivery O2 Flow Rate FiO2 01/01/17 09:08 18 01/01/17 08:00 Nasal Cannula 2.0 01/01/17 08:00 98.7 70 160/74 100 Intake and Output 12/31/16 12/31/16 01/01/17 15:00 23:00 07:00 Intake Total 1350 ml 1100 ml Balance 1350 ml 1100 ml Exam Constitutional: alert, oriented Head: normocephalic Neck: supple Respiratory: normal air movement Cardiovascular: nl pulses Gastrointestinal: non-tender, soft Extremities: normal pulses Neurological: nl mental status Results Result Diagram: 01/01/17 0415 01/01/17 0415 Results 24 hrs Laboratory Tests Test 01/01/17 04:15 White Blood Count 6.5 # Red Blood Count 3.10 L Hemoglobin 9.9 L Hematocrit 30.8 L Mean Corpuscular Volume 99.4 Mean Corpuscular Hemoglobin 31.9 Mean Corpuscular Hemoglobin Concent 32.1 Red Cell Distribution Width 13.4 Platelet Count 213 Mean Platelet Volume 10.4 Neutrophils % 63.9 Lymphocytes % 24.3 Monocytes % 6.8 Eosinophils % 4.0 Basophils % 0.5 Nucleated Red Blood Cells % 0.0 Neutrophils # 4.1 Lymphocytes # 1.6 Monocytes # 0.4 Eosinophils # 0.3 Basophils # 0.0 Nucleated Red Blood Cells # 0.0 Sodium Level 142 Potassium Level 4.2 Chloride Level 116 H Carbon Dioxide Level 21 Anion Gap 9 Blood Urea Nitrogen 26 H Creatinine 1.44 H Glucose Level 106 Calcium Level 8.5 Medications Medications Current Medications Acetaminophen (Tylenol Tab) 650 mg Q6H PRN PO PAIN AND OR ELEVATED TEMP Last administered on 12/29/16 05:14; Admin Dose 650 MG; Start 12/27/16 at 00:00 Enoxaparin Sodium (Lovenox) 30 mg DAILY SC Last administered on 01/01/17 09:10 ; Admin Dose 30 MG; Start 12/27/16 at 09:00 Aspirin (Aspirin) 81 mg DAILY PO Last administered on 01/01/17 09:13; Admin Dose 81 MG; Start 12/27/16 at 09:00 Ascorbic Acid (Vitamin C) 500 mg DAILY PO Last administered on 01/01/17 09:13 ; Admin Dose 500 MG; Start 12/27/16 at 09:00 Ferrous Sulfate (Ferrous Sulfate (Ec)) 325 mg BID PO Last administered on 09:13; Admin Dose 325 MG; Start 12/27/16 at 09:00 Fluoxetine HCl (Prozac) 20 mg DAILY PO Last administered on 01/01/17 09:13; Admin Dose 20 MG; Start 12/27/16 at 09:00 Metoprolol Succinate (Toprol Xl) 50 mg DAILY PO Last administered on 01/01/17 09:14; Admin Dose 50 MG; Start 12/27/16 at 09:00 Mirtazapine (Remeron) 15 mg QAM PO Last administered on 01/01/17 09:13; Admin Dose 15 MG; Start 12/27/16 at 09:00 Multivitamins Therapeutic (Theragran) 1 tab DAILY PO Last administered on 09:13; Admin Dose 1 TAB; Start 12/27/16 at 09:00 Raloxifene HCl (Evista) 60 mg DAILY PO Last administered on 01/01/17 09:13; Admin Dose 60 MG; Start 12/27/16 at 09:00 Pantoprazole 40 mg 40 mg DAILY@06 PO Last administered on 01/01/17 06:28; Admin Dose 40 MG; Start 12/27/16 at 06:00 Ceftriaxone Sodium 50 ml @ 100 mls/hr Q24H IVPB Last administered on 17:50; Admin Dose 100 MLS/HR; Start 12/29/16 at 17:30; Stop 01/02/17 at 06: 00 Dextrose/Sodium Chloride (D5-1/2ns) 1,000 ml @ 60 mls/hr [id number] IV Last administered on 01/01/17 11:43; Admin Dose 60 MLS/HR; Start 12/31/16 at 17:30 PALMA WILL Jan 01, 2017 16:33
--- NOTE | 2017-01-01 16:54 | CONS ---
Date/Time of Note Date/Time of Note DATE: 01/01/17 TIME: 16:52 Assessment/Plan Assessment/Plan Additional Assessment/Plan 1. Acute kidney injury versus acute kidney injury on chronic kidney disease, likely secondary to prerenal azotemia and also secondary to urinary tract infection. 2. Acute urinary tract infection causing altered mental status. 3. Altered mental status, unclear etiology, possibly secondary to urinary tract infection. 4. History of possible chronic kidney disease secondary to hypertension and diabetes. 5. History of hypertension. 6. History of hyperlipidemia. 7. History of previous cerebrovascular accident. 8. History of borderline diabetes mellitus. PLAN: IV Ceftriaxone for UTI Cr improved to 1.42 Na 142, HCo3 silghtly low D51/2 NS at 60 cc/hr will follow up Consultation Date/Type/Reason Admit Date/Time Dec 26, 2016 at 21:23 Type of Consultation: NEPHROLOGY Referring Provider: FRED PENNINGTON MD Exam/Review of Systems Vital Signs Vitals Vital Signs Date Time Temp Pulse Resp B/P Pulse Ox O2 Delivery O2 Flow Rate FiO2 01/01/17 09:08 18 01/01/17 08:00 Nasal Cannula 2.0 01/01/17 08:00 98.7 70 160/74 100 Intake and Output 12/31/16 12/31/16 01/01/17 15:00 23:00 07:00 Intake Total 1350 ml 1100 ml Balance 1350 ml 1100 ml Exam GENERAL: Awake, alert NECK: Supple, no JVD, no lymphadenopathy. LUNGS: Decreased breath sounds at both lung bases, right middle lobe, right lower lobe basilar rales present. HEART: S1, S2, tachycardia, no murmur. ABDOMEN: Soft, nontender, nondistended. Bowel sounds are present. EXTREMITIES: No clubbing, cyanosis, or edema. The patient is able to move all 4 extremities. Strength 5/5 in all extremities. Results Result Diagram: 01/01/17 0415 01/01/17 0415 Results 24 hrs Laboratory Tests Test 01/01/17 04:15 White Blood Count 6.5 # Red Blood Count 3.10 L Hemoglobin 9.9 L Hematocrit 30.8 L Mean Corpuscular Volume 99.4 Mean Corpuscular Hemoglobin 31.9 Mean Corpuscular Hemoglobin Concent 32.1 Red Cell Distribution Width 13.4 Platelet Count 213 Mean Platelet Volume 10.4 Neutrophils % 63.9 Lymphocytes % 24.3 Monocytes % 6.8 Eosinophils % 4.0 Basophils % 0.5 Nucleated Red Blood Cells % 0.0 Neutrophils # 4.1 Lymphocytes # 1.6 Monocytes # 0.4 Eosinophils # 0.3 Basophils # 0.0 Nucleated Red Blood Cells # 0.0 Sodium Level 142 Potassium Level 4.2 Chloride Level 116 H Carbon Dioxide Level 21 Anion Gap 9 Blood Urea Nitrogen 26 H Creatinine 1.44 H Glucose Level 106 Calcium Level 8.5 Medications Medications Current Medications Acetaminophen (Tylenol Tab) 650 mg Q6H PRN PO PAIN AND OR ELEVATED TEMP Last administered on 12/29/16 05:14; Admin Dose 650 MG; Start 12/27/16 at 00:00 Enoxaparin Sodium (Lovenox) 30 mg DAILY SC Last administered on 01/01/17 09:10 ; Admin Dose 30 MG; Start 12/27/16 at 09:00 Aspirin (Aspirin) 81 mg DAILY PO Last administered on 01/01/17 09:13; Admin Dose 81 MG; Start 12/27/16 at 09:00 Ascorbic Acid (Vitamin C) 500 mg DAILY PO Last administered on 01/01/17 09:13 ; Admin Dose 500 MG; Start 12/27/16 at 09:00 Ferrous Sulfate (Ferrous Sulfate (Ec)) 325 mg BID PO Last administered on 09:13; Admin Dose 325 MG; Start 12/27/16 at 09:00 Fluoxetine HCl (Prozac) 20 mg DAILY PO Last administered on 01/01/17 09:13; Admin Dose 20 MG; Start 12/27/16 at 09:00 Metoprolol Succinate (Toprol Xl) 50 mg DAILY PO Last administered on 01/01/17 09:14; Admin Dose 50 MG; Start 12/27/16 at 09:00 Mirtazapine (Remeron) 15 mg QAM PO Last administered on 01/01/17 09:13; Admin Dose 15 MG; Start 12/27/16 at 09:00 Multivitamins Therapeutic (Theragran) 1 tab DAILY PO Last administered on 09:13; Admin Dose 1 TAB; Start 12/27/16 at 09:00 Raloxifene HCl (Evista) 60 mg DAILY PO Last administered on 01/01/17 09:13; Admin Dose 60 MG; Start 12/27/16 at 09:00 Pantoprazole 40 mg 40 mg DAILY@06 PO Last administered on 01/01/17 06:28; Admin Dose 40 MG; Start 12/27/16 at 06:00 Ceftriaxone Sodium 50 ml @ 100 mls/hr Q24H IVPB Last administered on 17:50; Admin Dose 100 MLS/HR; Start 12/29/16 at 17:30; Stop 01/02/17 at 06: 00 Dextrose/Sodium Chloride (D5-1/2ns) 1,000 ml @ 60 mls/hr [id number] IV Last administered on 01/01/17 11:43; Admin Dose 60 MLS/HR; Start 12/31/16 at 17:30 DILSHAD PAIZ MD Jan 01, 2017 16:54
[2017-01-01] MEDS: CEFTRIAXONE 1 GM/50 ML (PMX) 50 ML IVPB SCH (18:00)
[2017-01-01 20:57] VITALS: BP 138/65; RESP 19
[2017-01-02] MEDS: DEXTROSE 5%-0.45% NACL 1,000 ML IV SCH (02:50)
[2017-01-02 05:15] LABS: ADD SCAN DIFF NO
[2017-01-02 05:17] LABS: BASOPHILS % 0.6 % (0.0-2.0); EOSINOPHILS # 0.3 10^3/ul (0.0-0.5); EOSINOPHILS % 5.4 % (0.0-7.0); HEMATOCRIT 28.9 % (37.0-47.0); HEMOGLOBIN 9.4 g/dl (12.0-16.0); LYMPHOCYTES # 1.7 10^3/ul (0.8-2.9); LYMPHOCYTES % 31.9 % (15.0-51.0); MEAN CORPUSCULAR HEMOGLOBIN 32.6 pg (29.0-33.0); MEAN CORPUSCULAR HGB CONC 32.5 g/dl (32.0-37.0); MEAN CORPUSCULAR VOLUME 100.3 fl (82.0-101.0); MEAN PLATELET VOLUME 10.3 fl (7.4-10.4); MONOCYTE # 0.4 10^3/ul (0.3-0.9); MONOCYTES % 6.9 % (0.0-11.0); NEUTROPHIL # 2.8 10^3/ul (1.6-7.5); NEUTROPHILS % 54.6 % (39.0-77.0); PLATELET COUNT 205 10^3/UL (140-415); RED BLOOD COUNT 2.88 10^6/ul (4.20-5.40); RED CELL DISTRIBUTION WIDTH 13.3 % (11.5-14.5); WHITE BLOOD COUNT 5.2 10^3/ul (4.8-10.8)
[2017-01-02 05:45] LABS: CALCIUM 8.8 mg/dl (8.4-10.2); CREATININE 1.3 mg/dl (0.44-1.00); POTASSIUM 4.5 mmol/L (3.5-5.1)
[2017-01-02] MEDS: PANTOPRAZOLE (EC) 40 MG TAB PO SCH (06:17)
[2017-01-02 08:07] VITALS: BP 152/69; RESP 20
[2017-01-02] MEDS: ASCORBIC ACID 500 MG TAB PO SCH (08:44)
[2017-01-02] MEDS: FERROUS SULFATE (EC) 325 MG TAB PO SCH ×2 (08:44→20:09)
[2017-01-02] MEDS: MULTIVITAMINS THERAPEUTIC TAB PO SCH (08:44)
[2017-01-02] MEDS: FLUOXETINE 20 MG CAP PO SCH (08:44)
[2017-01-02] MEDS: RALOXIFENE 60 MG TAB PO SCH (08:44)
[2017-01-02] MEDS: ASPIRIN 81 MG TAB PO SCH (08:44)
[2017-01-02] MEDS: MIRTAZAPINE 15 MG TAB PO SCH (08:44)
[2017-01-02] MEDS: METOPROLOL (XL) 50 MG TAB PO SCH (08:44)
[2017-01-02] MEDS: ENOXAPARIN 30 MG/0.3 ML SYG SC SCH (08:46)
[2017-01-02] MEDS: DEXTROSE 5%-0.45% NACL 500 ML IV SCH ×2 (08:48→15:20)
--- NOTE | 2017-01-02 13:06 | CONS ---
Date/Time of Note Date/Time of Note DATE: 01/02/17 TIME: 13:05 Assessment/Plan Assessment/Plan Chief Complaint/Hosp Course SUBJECTIVE: Awake, responsive, family at bedside. No fevers no acute events ANTIMICROBIALS: Rocephin MICROBIOLOGY: Urine culture grew Providencia stuartii. DIAGNOSTICS: Chest x-ray negative PHYSICAL EXAMINATION: GENERAL: This is a chronically ill-appearing, fragile, elderly woman who is lying comfortably in bed. HEENT: Head atraumatic, normocephalic. Sclerae anicteric. Buccal mucosa dry. NECK: Supple. CHEST: Rise symmetrical. Breath sounds diminished to bases. HEART: S1, S2. ABDOMEN: Soft. Bowel tones present. EXTREMITIES: No cyanosis. ASSESSMENT: 1. S/p systemic inflammatory response syndrome with low grade fevers on admission. 2. Resolving encephalopathy. 3. Urinary tract infection. 4. Hypertension. 5. History of cerebrovascular accident. PLAN: The patient remains stable, completed treatment with antibiotics continue present care, repeat cultures as needed. DW staff Problems: Consultation Date/Type/Reason Admit Date/Time Dec 26, 2016 at 21:23 Type of Consultation: Infectious disease Referring Provider: FRED PENNINGTON MD Exam/Review of Systems Vital Signs Vitals Vital Signs Date Time Temp Pulse Resp B/P Pulse Ox O2 Delivery O2 Flow Rate FiO2 01/02/17 08:07 98.5 56 20 152/69 98 01/02/17 08:00 Nasal Cannula 2.0 Intake and Output 01/01/17 01/01/17 01/02/17 15:00 23:00 07:00 Intake Total 350 ml 1350 ml 1195 ml Balance 350 ml 1350 ml 1195 ml Results Result Diagram: 01/02/17 0430 01/02/17 0430 Results 24 hrs Laboratory Tests Test 01/02/17 04:30 White Blood Count 5.2 Red Blood Count 2.88 L Hemoglobin 9.4 L Hematocrit 28.9 L Mean Corpuscular Volume 100.3 Mean Corpuscular Hemoglobin 32.6 Mean Corpuscular Hemoglobin Concent 32.5 Red Cell Distribution Width 13.3 Platelet Count 205 Mean Platelet Volume 10.3 Neutrophils % 54.6 Lymphocytes % 31.9 Monocytes % 6.9 Eosinophils % 5.4 Basophils % 0.6 Nucleated Red Blood Cells % 0.0 Neutrophils # 2.8 Lymphocytes # 1.7 Monocytes # 0.4 Eosinophils # 0.3 Basophils # 0.0 Nucleated Red Blood Cells # 0.0 Sodium Level 146 H Potassium Level 4.5 Chloride Level 119 H Carbon Dioxide Level 20 L Anion Gap 12 Blood Urea Nitrogen 23 H Creatinine 1.30 H Glucose Level 101 Calcium Level 8.8 Medications Medications Current Medications Acetaminophen (Tylenol Tab) 650 mg Q6H PRN PO PAIN AND OR ELEVATED TEMP Last administered on 12/29/16 05:14; Admin Dose 650 MG; Start 12/27/16 at 00:00 Enoxaparin Sodium (Lovenox) 30 mg DAILY SC Last administered on 01/02/17 08:46 ; Admin Dose 30 MG; Start 12/27/16 at 09:00 Aspirin (Aspirin) 81 mg DAILY PO Last administered on 01/02/17 08:44; Admin Dose 81 MG; Start 12/27/16 at 09:00 Ascorbic Acid (Vitamin C) 500 mg DAILY PO Last administered on 01/02/17 08:44 ; Admin Dose 500 MG; Start 12/27/16 at 09:00 Ferrous Sulfate (Ferrous Sulfate (Ec)) 325 mg BID PO Last administered on 08:44; Admin Dose 325 MG; Start 12/27/16 at 09:00 Fluoxetine HCl (Prozac) 20 mg DAILY PO Last administered on 01/02/17 08:44; Admin Dose 20 MG; Start 12/27/16 at 09:00 Metoprolol Succinate (Toprol Xl) 50 mg DAILY PO Last administered on 01/02/17 08:44; Admin Dose 50 MG; Start 12/27/16 at 09:00 Mirtazapine (Remeron) 15 mg QAM PO Last administered on 01/02/17 08:44; Admin Dose 15 MG; Start 12/27/16 at 09:00 Multivitamins Therapeutic (Theragran) 1 tab DAILY PO Last administered on 08:44; Admin Dose 1 TAB; Start 12/27/16 at 09:00 Raloxifene HCl (Evista) 60 mg DAILY PO Last administered on 01/02/17 08:44; Admin Dose 60 MG; Start 12/27/16 at 09:00 Pantoprazole 40 mg 40 mg DAILY@06 PO Last administered on 6/29/17at 06:17; Admin Dose 40 MG; Start 12/27/16 at 06:00 Dextrose/Sodium Chloride (D5-1/2ns) 500 ml @ 60 mls/hr Q8H20M IV Last administered on 01/02/17 08:48; Admin Dose 60 MLS/HR; Start 01/02/17 at 07:00 GAEL MCGEE NP Jan 02, 2017 13:05
--- NOTE | 2017-01-02 16:56 | PN ---
Date/Time of Note Date/Time of Note DATE: 01/02/17 TIME: 16:54 Assessment/Plan VTE Prophylaxis VTE Prophylaxis Intervention: SCD's Lines/Catheters IV C[facility]ter Type (from [facility] Peripheral IV Urinary Cath still in place: No Assessment/Plan Assessment/Plan 1. Acute cystitis. Continue Rocephin. Dr. Del Rio is following patient in infectious disease consultation. 2. Acute kidney injury on chronic kidney disease. Dr. Perez is following patient in nephrology consultation. Continue to monitor BUN and creatinine. 3. Acute metabolic encephalopathy secondary to infection. 4. Hypertension by history. 5. Hyperlipidemia. 6. History of cerebrovascular accident. 7. History of anxiety and depression. 8. Anemia of chronic disease. 9. History of gastroesophageal reflux disease. 10. History of left knee replacement with decreased mobility. 11. Lovenox for deep venous thrombosis prophylaxis 12. Protonix for peptic ulcer disease prophylaxis. Further recommendations based on clinical course. Plan of care discussed with Dr. Rogers. Exam/Review of Systems Vital Signs Vitals Vital Signs Date Time Temp Pulse Resp B/P Pulse Ox O2 Delivery O2 Flow Rate FiO2 01/02/17 08:07 98.5 56 20 152/69 98 01/02/17 08:00 Nasal Cannula 2.0 Intake and Output 01/01/17 01/01/17 01/02/17 15:00 23:00 07:00 Intake Total 350 ml 1350 ml 1195 ml Balance 350 ml 1350 ml 1195 ml Exam Constitutional: alert, well developed Respiratory: clear to auscultation, normal air movement Cardiovascular: nl pulses, regular rate and rhythm Gastrointestinal: non-tender, soft Musculoskeletal: nl extremities to inspection Extremities: normal pulses Neurological: nl speech Results Result Diagram: 01/02/17 0430 01/02/17 0430 Results 24 hrs Laboratory Tests Test 01/02/17 04:30 White Blood Count 5.2 Red Blood Count 2.88 L Hemoglobin 9.4 L Hematocrit 28.9 L Mean Corpuscular Volume 100.3 Mean Corpuscular Hemoglobin 32.6 Mean Corpuscular Hemoglobin Concent 32.5 Red Cell Distribution Width 13.3 Platelet Count 205 Mean Platelet Volume 10.3 Neutrophils % 54.6 Lymphocytes % 31.9 Monocytes % 6.9 Eosinophils % 5.4 Basophils % 0.6 Nucleated Red Blood Cells % 0.0 Neutrophils # 2.8 Lymphocytes # 1.7 Monocytes # 0.4 Eosinophils # 0.3 Basophils # 0.0 Nucleated Red Blood Cells # 0.0 Sodium Level 146 H Potassium Level 4.5 Chloride Level 119 H Carbon Dioxide Level 20 L Anion Gap 12 Blood Urea Nitrogen 23 H Creatinine 1.30 H Glucose Level 101 Calcium Level 8.8 Medications Medications Current Medications Acetaminophen (Tylenol Tab) 650 mg Q6H PRN PO PAIN AND OR ELEVATED TEMP Last administered on 12/29/16 05:14; Admin Dose 650 MG; Start 12/27/16 at 00:00 Enoxaparin Sodium (Lovenox) 30 mg DAILY SC Last administered on 01/02/17 08:46 ; Admin Dose 30 MG; Start 12/27/16 at 09:00 Aspirin (Aspirin) 81 mg DAILY PO Last administered on 01/02/17 08:44; Admin Dose 81 MG; Start 12/27/16 at 09:00 Ascorbic Acid (Vitamin C) 500 mg DAILY PO Last administered on 01/02/17 08:44 ; Admin Dose 500 MG; Start 12/27/16 at 09:00 Ferrous Sulfate (Ferrous Sulfate (Ec)) 325 mg BID PO Last administered on 08:44; Admin Dose 325 MG; Start 12/27/16 at 09:00 Fluoxetine HCl (Prozac) 20 mg DAILY PO Last administered on 01/02/17 08:44; Admin Dose 20 MG; Start 12/27/16 at 09:00 Metoprolol Succinate (Toprol Xl) 50 mg DAILY PO Last administered on 01/02/17 08:44; Admin Dose 50 MG; Start 12/27/16 at 09:00 Mirtazapine (Remeron) 15 mg QAM PO Last administered on 01/02/17 08:44; Admin Dose 15 MG; Start 12/27/16 at 09:00 Multivitamins Therapeutic (Theragran) 1 tab DAILY PO Last administered on 08:44; Admin Dose 1 TAB; Start 12/27/16 at 09:00 Raloxifene HCl (Evista) 60 mg DAILY PO Last administered on 01/02/17 08:44; Admin Dose 60 MG; Start 12/27/16 at 09:00 Pantoprazole 40 mg 40 mg DAILY@06 PO Last administered on 01/02/17 06:17; Admin Dose 40 MG; Start 12/27/16 at 06:00 Dextrose/Sodium Chloride (D5-1/2ns) 500 ml @ 60 mls/hr Q8H20M IV Last administered on 01/02/17 08:48; Admin Dose 60 MLS/HR; Start 01/02/17 at 07:00 Docusate Sodium (Colace) 100 mg BID PO ; Start 01/02/17 at 21:00 Bisacodyl (Dulcolax) 5 mg DAILY PRN PO CONSTIPATION; Start 01/02/17 at 17:00 GREGG DAVILA Jan 02, 2017 16:56
[2017-01-02] MEDS ORDERED: BISACODYL (EC) 5 MG TAB PO PRN (17:00)
--- NOTE | 2017-01-02 19:03 | CONS ---
Date/Time of Note Date/Time of Note DATE: 01/02/17 TIME: 19:01 Assessment/Plan Assessment/Plan Additional Assessment/Plan 1. Acute kidney injury versus acute kidney injury on chronic kidney disease, likely secondary to prerenal azotemia and also secondary to urinary tract infection. 2. Acute urinary tract infection causing altered mental status. 3. Altered mental status, unclear etiology, possibly secondary to urinary tract infection. 4. History of possible chronic kidney disease secondary to hypertension and diabetes. 5. History of hypertension. 6. History of hyperlipidemia. 7. History of previous cerebrovascular accident. 8. History of borderline diabetes mellitus. PLAN: IV Ceftriaxone for UTI Cr improved to 1.3 but Na trending up change IVF to D5W at 60 cc/hr will follow up Consultation Date/Type/Reason Admit Date/Time Dec 26, 2016 at 21:23 Type of Consultation: NEPHROLOGY Referring Provider: FRED PENNINGTON MD 24 HR Interval Summary Free Text/Dictation Na 146, Cr 1.3, BP stable, afebrile Exam/Review of Systems Vital Signs Vitals Vital Signs Date Time Temp Pulse Resp B/P Pulse Ox O2 Delivery O2 Flow Rate FiO2 01/02/17 08:07 98.5 56 20 152/69 98 01/02/17 08:00 Nasal Cannula 2.0 Intake and Output 01/01/17 01/01/17 01/02/17 15:00 23:00 07:00 Intake Total 350 ml 1350 ml 1195 ml Balance 350 ml 1350 ml 1195 ml Exam GENERAL: Awake, alert NECK: Supple, no JVD, no lymphadenopathy. LUNGS: Decreased breath sounds at both lung bases, right middle lobe, right lower lobe basilar rales present. HEART: S1, S2, tachycardia, no murmur. ABDOMEN: Soft, nontender, nondistended. Bowel sounds are present. EXTREMITIES: No clubbing, cyanosis, or edema. The patient is able to move all 4 extremities. Strength 5/5 in all extremities. Results Result Diagram: 01/02/17 0430 01/02/17 0430 Results 24 hrs Laboratory Tests Test 01/02/17 04:30 White Blood Count 5.2 Red Blood Count 2.88 L Hemoglobin 9.4 L Hematocrit 28.9 L Mean Corpuscular Volume 100.3 Mean Corpuscular Hemoglobin 32.6 Mean Corpuscular Hemoglobin Concent 32.5 Red Cell Distribution Width 13.3 Platelet Count 205 Mean Platelet Volume 10.3 Neutrophils % 54.6 Lymphocytes % 31.9 Monocytes % 6.9 Eosinophils % 5.4 Basophils % 0.6 Nucleated Red Blood Cells % 0.0 Neutrophils # 2.8 Lymphocytes # 1.7 Monocytes # 0.4 Eosinophils # 0.3 Basophils # 0.0 Nucleated Red Blood Cells # 0.0 Sodium Level 146 H Potassium Level 4.5 Chloride Level 119 H Carbon Dioxide Level 20 L Anion Gap 12 Blood Urea Nitrogen 23 H Creatinine 1.30 H Glucose Level 101 Calcium Level 8.8 Medications Medications Current Medications Acetaminophen (Tylenol Tab) 650 mg Q6H PRN PO PAIN AND OR ELEVATED TEMP Last administered on 12/29/16 05:14; Admin Dose 650 MG; Start 12/27/16 at 00:00 Enoxaparin Sodium (Lovenox) 30 mg DAILY SC Last administered on 01/02/17 08:46 ; Admin Dose 30 MG; Start 12/27/16 at 09:00 Aspirin (Aspirin) 81 mg DAILY PO Last administered on 01/02/17 08:44; Admin Dose 81 MG; Start 12/27/16 at 09:00 Ascorbic Acid (Vitamin C) 500 mg DAILY PO Last administered on 01/02/17 08:44 ; Admin Dose 500 MG; Start 12/27/16 at 09:00 Ferrous Sulfate (Ferrous Sulfate (Ec)) 325 mg BID PO Last administered on 08:44; Admin Dose 325 MG; Start 12/27/16 at 09:00 Fluoxetine HCl (Prozac) 20 mg DAILY PO Last administered on 01/02/17 08:44; Admin Dose 20 MG; Start 12/27/16 at 09:00 Metoprolol Succinate (Toprol Xl) 50 mg DAILY PO Last administered on 01/02/17 08:44; Admin Dose 50 MG; Start 12/27/16 at 09:00 Mirtazapine (Remeron) 15 mg QAM PO Last administered on 01/02/17 08:44; Admin Dose 15 MG; Start 12/27/16 at 09:00 Multivitamins Therapeutic (Theragran) 1 tab DAILY PO Last administered on 08:44; Admin Dose 1 TAB; Start 12/27/16 at 09:00 Raloxifene HCl (Evista) 60 mg DAILY PO Last administered on 01/02/17 08:44; Admin Dose 60 MG; Start 12/27/16 at 09:00 Pantoprazole 40 mg 40 mg DAILY@06 PO Last administered on 01/02/17 06:17; Admin Dose 40 MG; Start 12/27/16 at 06:00 Dextrose/Sodium Chloride (D5-1/2ns) 500 ml @ 60 mls/hr Q8H20M IV Last administered on 01/02/17 08:48; Admin Dose 60 MLS/HR; Start 01/02/17 at 07:00 Docusate Sodium (Colace) 100 mg BID PO ; Start 01/02/17 at 21:00 Bisacodyl (Dulcolax) 5 mg DAILY PRN PO CONSTIPATION Last administered on 18:38; Admin Dose 5 MG; Start 01/02/17 at 17:00 DILSHAD PAIZ MD Jan 02, 2017 19:03
[2017-01-02 19:54] VITALS: BP 126/62; RESP 19
[2017-01-02 19:58] VITALS: BP 150/65; RESP 20
[2017-01-02] MEDS: DOCUSATE SODIUM 100 MG CAP PO SCH (20:09)
[2017-01-02] MEDS: DEXTROSE 5% 1,000 ML IV SCH (20:09)
[2017-01-03] MEDS: PANTOPRAZOLE (EC) 40 MG TAB PO SCH (05:12)
[2017-01-03 05:20] LABS: BASOPHILS % 0.6 % (0.0-2.0); EOSINOPHILS # 0.4 10^3/ul (0.0-0.5); EOSINOPHILS % 6.6 % (0.0-7.0); LYMPHOCYTES # 1.9 10^3/ul (0.8-2.9); LYMPHOCYTES % 34.9 % (15.0-51.0); MEAN CORPUSCULAR HGB CONC 33.3 g/dl (32.0-37.0); MEAN CORPUSCULAR VOLUME 98.9 fl (82.0-101.0); MEAN PLATELET VOLUME 10.5 fl (7.4-10.4); MONOCYTE # 0.4 10^3/ul (0.3-0.9); MONOCYTES % 6.6 % (0.0-11.0); NEUTROPHIL # 2.7 10^3/ul (1.6-7.5); NEUTROPHILS % 50.5 % (39.0-77.0); PLATELET COUNT 207 10^3/UL (140-415); RED BLOOD COUNT 2.73 10^6/ul (4.20-5.40); RED CELL DISTRIBUTION WIDTH 13.7 % (11.5-14.5); WHITE BLOOD COUNT 5.3 10^3/ul (4.8-10.8)
[2017-01-03 05:47] LABS: CALCIUM 8.4 mg/dl (8.4-10.2); CREATININE 1.4 mg/dl (0.44-1.00); POTASSIUM 3.8 mmol/L (3.5-5.1)
[2017-01-03 07:13] LABS: ADD SCAN DIFF NO
[2017-01-03 08:01] VITALS: BP 139/66; RESP 18
[2017-01-03] MEDS: MULTIVITAMINS THERAPEUTIC TAB PO SCH (08:26)
[2017-01-03] MEDS: METOPROLOL (XL) 50 MG TAB PO SCH (08:26)
[2017-01-03] MEDS: FERROUS SULFATE (EC) 325 MG TAB PO SCH ×2 (08:26→20:20)
[2017-01-03] MEDS: ASCORBIC ACID 500 MG TAB PO SCH (08:26)
[2017-01-03] MEDS: FLUOXETINE 20 MG CAP PO SCH (08:26)
[2017-01-03] MEDS: DOCUSATE SODIUM 100 MG CAP PO SCH ×2 (08:26→20:20)
[2017-01-03] MEDS: RALOXIFENE 60 MG TAB PO SCH (08:26)
[2017-01-03] MEDS: MIRTAZAPINE 15 MG TAB PO SCH (08:26)
[2017-01-03] MEDS: ASPIRIN 81 MG TAB PO SCH (08:26)
[2017-01-03] MEDS: ENOXAPARIN 30 MG/0.3 ML SYG SC SCH (08:28)
--- NOTE | 2017-01-03 11:46 | CONS ---
Date/Time of Note Date/Time of Note DATE: 01/03/17 TIME: 11:44 Assessment/Plan Assessment/Plan Additional Assessment/Plan 1. Acute kidney injury versus acute kidney injury on chronic kidney disease, likely secondary to prerenal azotemia and also secondary to urinary tract infection. 2. Acute urinary tract infection causing altered mental status. 3. Altered mental status, unclear etiology, possibly secondary to urinary tract infection. 4. History of possible chronic kidney disease secondary to hypertension and diabetes. 5. History of hypertension. 6. History of hyperlipidemia. 7. History of previous cerebrovascular accident. 8. History of borderline diabetes mellitus. PLAN: s/p IV Ceftriaxone for UTI- now off Cr 1.4, Na normal today continue D5W at 60 cc/hr x 1 more day then stop will follow up Consultation Date/Type/Reason Admit Date/Time Dec 26, 2016 at 21:23 Type of Consultation: NEPHROLOGY Referring Provider: FRED PENNINGTON MD 24 HR Interval Summary Free Text/Dictation Cr 1.4,Cl improved,BP stable Exam/Review of Systems Vital Signs Vitals Vital Signs Date Time Temp Pulse Resp B/P Pulse Ox O2 Delivery O2 Flow Rate FiO2 01/03/17 08:01 97.7 57 18 139/66 98 01/02/17 20:00 Nasal Cannula 2.0 Intake and Output 01/02/17 01/02/17 01/03/17 15:00 23:00 07:00 Intake Total 1200 ml 940 ml Balance 1200 ml 940 ml Exam GENERAL: Awake, alert NECK: Supple, no JVD, no lymphadenopathy. LUNGS: Decreased breath sounds at both lung bases, right middle lobe, right lower lobe basilar rales present. HEART: S1, S2, tachycardia, no murmur. ABDOMEN: Soft, nontender, nondistended. Bowel sounds are present. EXTREMITIES: No clubbing, cyanosis, or edema. The patient is able to move all 4 extremities. Strength 5/5 in all extremities. Results Result Diagram: 01/03/17 0425 01/03/17 0435 Results 24 hrs Laboratory Tests Test 01/03/17 04:25 01/03/17 04:35 White Blood Count 5.3 Red Blood Count 2.73 L Hemoglobin 9.0 L Hematocrit 27.0 L Mean Corpuscular Volume 98.9 Mean Corpuscular Hemoglobin 33.0 Mean Corpuscular Hemoglobin Concent 33.3 Red Cell Distribution Width 13.7 Platelet Count 207 Mean Platelet Volume 10.5 H Neutrophils % 50.5 Lymphocytes % 34.9 Monocytes % 6.6 Eosinophils % 6.6 Basophils % 0.6 Nucleated Red Blood Cells % 0.0 Neutrophils # 2.7 Lymphocytes # 1.9 Monocytes # 0.4 Eosinophils # 0.4 Basophils # 0.0 Nucleated Red Blood Cells # 0.0 Sodium Level 141 Potassium Level 3.8 Chloride Level 116 H Carbon Dioxide Level 21 Anion Gap 8 Blood Urea Nitrogen 25 H Creatinine 1.40 H Glucose Level 105 Calcium Level 8.4 Medications Medications Current Medications Acetaminophen (Tylenol Tab) 650 mg Q6H PRN PO PAIN AND OR ELEVATED TEMP Last administered on 12/29/16 05:14; Admin Dose 650 MG; Start 12/27/16 at 00:00 Enoxaparin Sodium (Lovenox) 30 mg DAILY SC Last administered on 01/03/17 08:28 ; Admin Dose 30 MG; Start 12/27/16 at 09:00 Aspirin (Aspirin) 81 mg DAILY PO Last administered on 01/03/17 08:26; Admin Dose 81 MG; Start 12/27/16 at 09:00 Ascorbic Acid (Vitamin C) 500 mg DAILY PO Last administered on 01/03/17 08:26 ; Admin Dose 500 MG; Start 12/27/16 at 09:00 Ferrous Sulfate (Ferrous Sulfate (Ec)) 325 mg BID PO Last administered on 08:26; Admin Dose 325 MG; Start 12/27/16 at 09:00 Fluoxetine HCl (Prozac) 20 mg DAILY PO Last administered on 01/03/17 08:26; Admin Dose 20 MG; Start 12/27/16 at 09:00 Metoprolol Succinate (Toprol Xl) 50 mg DAILY PO Last administered on 01/03/17 08:26; Admin Dose 50 MG; Start 12/27/16 at 09:00 Mirtazapine (Remeron) 15 mg QAM PO Last administered on 01/03/17 08:26; Admin Dose 15 MG; Start 12/27/16 at 09:00 Multivitamins Therapeutic (Theragran) 1 tab DAILY PO Last administered on 08:26; Admin Dose 1 TAB; Start 12/27/16 at 09:00 Raloxifene HCl (Evista) 60 mg DAILY PO Last administered on 01/03/17 08:26; Admin Dose 60 MG; Start 12/27/16 at 09:00 Pantoprazole (Protonix Tab) 40 mg DAILY@06 PO Last administered on 01/03/17 05 :12; Admin Dose 40 MG; Start 12/27/16 at 06:00 Docusate Sodium (Colace) 100 mg BID PO Last administered on 01/03/17 08:26; Admin Dose 100 MG; Start 01/02/17 at 21:00 Bisacodyl 5 mg 5 mg DAILY PRN PO CONSTIPATION Last administered on 01/02/17 18 :38; Admin Dose 5 MG; Start 01/02/17 at 17:00 Dextrose (D5W) 1,000 ml @ 60 mls/hr [id number] IV Last administered on 01/02/17 20:09; Admin Dose 60 MLS/HR; Start 01/02/17 at 19:30 DILSHAD PAIZ MD Jan 03, 2017 11:46
[2017-01-03] MEDS: DEXTROSE 5% 1,000 ML IV SCH (12:35)
--- NOTE | 2017-01-03 15:13 | PN ---
Date/Time of Note Date/Time of Note DATE: 01/03/17 TIME: 15:10 Assessment/Plan VTE Prophylaxis VTE Prophylaxis Intervention: SCD's Lines/Catheters IV [facility]ter Type (from [facility] Peripheral IV Urinary Cath still in place: No Assessment/Plan Chief Complaint/Hosp Course Patient was improved renal function, awaits for a [facility] facility placement, patient's remained hemodynamically stable, no acute events overnight , patient with poor mobility. Assessment/Plan 1. Acute cystitis. Continue Rocephin. Dr. Del Rio is following patient in infectious disease consultation. 2. Acute kidney injury on chronic kidney disease. Dr. Perez is following patient in nephrology consultation. Continue to monitor BUN and creatinine. 3. Acute metabolic encephalopathy secondary to infection. 4. Hypertension by history. 5. Hyperlipidemia. 6. History of cerebrovascular accident. 7. History of anxiety and depression. 8. Anemia of chronic disease. 9. History of gastroesophageal reflux disease. 10. History of left knee replacement with decreased mobility. Case management positive for possible [facility] facility placement Continue Lovenox for deep venous thrombosis prophylaxis and Protonix for peptic ulcer disease prophylaxis. Further recommendations based on clinical course. Plan of care discussed with Dr. Rogers. Problems: Exam/Review of Systems Vital Signs Vitals Vital Signs Date Time Temp Pulse Resp B/P Pulse Ox O2 Delivery O2 Flow Rate FiO2 01/03/17 08:01 97.7 57 18 139/66 98 01/02/17 20:00 Nasal Cannula 2.0 Intake and Output 01/02/17 01/02/17 01/03/17 14:59 22:59 06:59 Intake Total 1200 ml 940 ml Balance 1200 ml 940 ml Exam Constitutional: alert, oriented Head: normocephalic Neck: supple Respiratory: normal air movement Cardiovascular: nl pulses Gastrointestinal: non-tender, soft Extremities: normal pulses Neurological: nl mental status Results Result Diagram: 01/03/17 0425 01/03/17 0435 Results 24 hrs Laboratory Tests Test 01/03/17 04:25 01/03/17 04:35 White Blood Count 5.3 Red Blood Count 2.73 L Hemoglobin 9.0 L Hematocrit 27.0 L Mean Corpuscular Volume 98.9 Mean Corpuscular Hemoglobin 33.0 Mean Corpuscular Hemoglobin Concent 33.3 Red Cell Distribution Width 13.7 Platelet Count 207 Mean Platelet Volume 10.5 H Neutrophils % 50.5 Lymphocytes % 34.9 Monocytes % 6.6 Eosinophils % 6.6 Basophils % 0.6 Nucleated Red Blood Cells % 0.0 Neutrophils # 2.7 Lymphocytes # 1.9 Monocytes # 0.4 Eosinophils # 0.4 Basophils # 0.0 Nucleated Red Blood Cells # 0.0 Sodium Level 141 Potassium Level 3.8 Chloride Level 116 H Carbon Dioxide Level 21 Anion Gap 8 Blood Urea Nitrogen 25 H Creatinine 1.40 H Glucose Level 105 Calcium Level 8.4 Medications Medications Current Medications Acetaminophen (Tylenol Tab) 650 mg Q6H PRN PO PAIN AND OR ELEVATED TEMP Last administered on 12/29/16 05:14; Admin Dose 650 MG; Start 12/27/16 at 00:00 Enoxaparin Sodium (Lovenox) 30 mg DAILY SC Last administered on 01/03/17 08:28 ; Admin Dose 30 MG; Start 12/27/16 at 09:00 Aspirin (Aspirin) 81 mg DAILY PO Last administered on 01/03/17 08:26; Admin Dose 81 MG; Start 12/27/16 at 09:00 Ascorbic Acid (Vitamin C) 500 mg DAILY PO Last administered on 01/03/17 08:26 ; Admin Dose 500 MG; Start 12/27/16 at 09:00 Ferrous Sulfate (Ferrous Sulfate (Ec)) 325 mg BID PO Last administered on 08:26; Admin Dose 325 MG; Start 12/27/16 at 09:00 Fluoxetine HCl (Prozac) 20 mg DAILY PO Last administered on 01/03/17 08:26; Admin Dose 20 MG; Start 12/27/16 at 09:00 Metoprolol Succinate (Toprol Xl) 50 mg DAILY PO Last administered on 01/03/17 08:26; Admin Dose 50 MG; Start 12/27/16 at 09:00 Mirtazapine (Remeron) 15 mg QAM PO Last administered on 01/03/17 08:26; Admin Dose 15 MG; Start 12/27/16 at 09:00 Multivitamins Therapeutic (Theragran) 1 tab DAILY PO Last administered on 08:26; Admin Dose 1 TAB; Start 12/27/16 at 09:00 Raloxifene HCl (Evista) 60 mg DAILY PO Last administered on 01/03/17 08:26; Admin Dose 60 MG; Start 12/27/16 at 09:00 Pantoprazole (Protonix Tab) 40 mg DAILY@06 PO Last administered on 01/03/17 05 :12; Admin Dose 40 MG; Start 12/27/16 at 06:00 Docusate Sodium (Colace) 100 mg BID PO Last administered on 01/03/17 08:26; Admin Dose 100 MG; Start 01/02/17 at 21:00 Bisacodyl 5 mg 5 mg DAILY PRN PO CONSTIPATION Last administered on 01/02/17 18 :38; Admin Dose 5 MG; Start 01/02/17 at 17:00 Dextrose (D5W) 1,000 ml @ 60 mls/hr [id number] IV Last administered on 01/03/17 12:35; Admin Dose 60 MLS/HR; Start 01/02/17 at 19:30 PALMA WILL Jan 03, 2017 15:13
[2017-01-03 20:23] VITALS: BP 112/57; RESP 19
[2017-01-04] MEDS: DEXTROSE 5% 1,000 ML IV SCH ×2 (04:10→20:31)
[2017-01-04] MEDS: PANTOPRAZOLE (EC) 40 MG TAB PO SCH (05:15)
[2017-01-04 06:30] LABS: CALCIUM 8.8 mg/dl (8.4-10.2); CREATININE 1.44 mg/dl (0.44-1.00); POTASSIUM 4.2 mmol/L (3.5-5.1)
[2017-01-04 08:22] VITALS: BP 129/60; RESP 18
[2017-01-04] MEDS: DOCUSATE SODIUM 100 MG CAP PO SCH ×2 (08:42→20:30)
[2017-01-04] MEDS: MIRTAZAPINE 15 MG TAB PO SCH (08:42)
[2017-01-04] MEDS: FERROUS SULFATE (EC) 325 MG TAB PO SCH ×2 (08:42→20:30)
[2017-01-04] MEDS: FLUOXETINE 20 MG CAP PO SCH (08:42)
[2017-01-04] MEDS: RALOXIFENE 60 MG TAB PO SCH (08:42)
[2017-01-04] MEDS: MULTIVITAMINS THERAPEUTIC TAB PO SCH (08:42)
[2017-01-04] MEDS: ASCORBIC ACID 500 MG TAB PO SCH (08:42)
[2017-01-04] MEDS: ASPIRIN 81 MG TAB PO SCH (08:42)
[2017-01-04] MEDS: METOPROLOL (XL) 50 MG TAB PO SCH (08:43)
[2017-01-04] MEDS: ENOXAPARIN 30 MG/0.3 ML SYG SC SCH (08:50)
--- NOTE | 2017-01-04 14:41 | PN ---
Date/Time of Note Date/Time of Note DATE: 01/04/17 TIME: 14:35 Assessment/Plan VTE Prophylaxis VTE Prophylaxis Intervention: LMWH Lines/Catheters IV [facility]ter Type (from [facility]): Peripheral IV Urinary Cath still in place: No Assessment/Plan Assessment/Plan 1. Acute cystitis. Continue Rocephin. Dr. Del Rio is following patient in infectious disease consultation. 2. Acute kidney injury on chronic kidney disease. Dr. Perez is following patient in nephrology consultation. Continue to monitor BUN and creatinine. 3. Acute metabolic encephalopathy secondary to infection. 4. Hypertension by history. 5. Hyperlipidemia. 6. History of cerebrovascular accident. 7. History of anxiety and depression. 8. Anemia of chronic disease. 9. History of gastroesophageal reflux disease. 10. History of left knee replacement with decreased mobility. Case management positive for possible [facility] facility placement Continue Lovenox for deep venous thrombosis prophylaxis and Protonix for peptic ulcer disease prophylaxis. Further recommendations based on clinical course. Plan of care discussed with Dr. Rogers. Subjective 24 Hr Interval Summary Free Text/Dictation nad, family at bed side- all Qs answered, pending ARU evaluation- reapealed. dw staff Respiratory: no complaints Cardiovascular: no complaints Gastrointestinal: no complaints Exam/Review of Systems Vital Signs Vitals Vital Signs Date Time Temp Pulse Resp B/P Pulse Ox O2 Delivery O2 Flow Rate FiO2 01/04/17 08:30 Nasal Cannula 2.0 01/04/17 08:22 98.5 60 18 129/60 99 Intake and Output 01/03/17 01/03/17 01/04/17 15:00 23:00 07:00 Intake Total 1510 ml 1060 ml Balance 1510 ml 1060 ml Exam Constitutional: alert, well developed ENMT: nl external ears & nose Respiratory: clear to auscultation, normal air movement Cardiovascular: nl pulses, regular rate and rhythm Gastrointestinal: non-tender, soft Musculoskeletal: nl extremities to inspection Extremities: normal pulses Results Result Diagram: 01/03/17 0425 01/04/17 0500 Results 24 hrs Laboratory Tests Test 01/04/17 05:00 Sodium Level 141 Potassium Level 4.2 Chloride Level 115 H Carbon Dioxide Level 21 Anion Gap 9 Blood Urea Nitrogen 23 H Creatinine 1.44 H Glucose Level 121 Calcium Level 8.8 Medications Medications Current Medications Acetaminophen (Tylenol Tab) 650 mg Q6H PRN PO PAIN AND OR ELEVATED TEMP Last administered on 12/29/16 05:14; Admin Dose 650 MG; Start 12/27/16 at 00:00 Enoxaparin Sodium (Lovenox) 30 mg DAILY SC Last administered on 01/04/17 08:50 ; Admin Dose 30 MG; Start 12/27/16 at 09:00 Aspirin (Aspirin) 81 mg DAILY PO Last administered on 01/04/17 08:42; Admin Dose 81 MG; Start 12/27/16 at 09:00 Ascorbic Acid (Vitamin C) 500 mg DAILY PO Last administered on 01/04/17 08:42; Admin Dose 500 MG; Start 12/27/16 at 09:00 Ferrous Sulfate (Ferrous Sulfate (Ec)) 325 mg BID PO Last administered on 08:42; Admin Dose 325 MG; Start 12/27/16 at 09:00 Fluoxetine HCl (Prozac) 20 mg DAILY PO Last administered on 01/04/17 08:42; Admin Dose 20 MG; Start 12/27/16 at 09:00 Metoprolol Succinate (Toprol Xl) 50 mg DAILY PO Last administered on 01/04/17 08:43; Admin Dose 50 MG; Start 12/27/16 at 09:00 Mirtazapine (Remeron) 15 mg QAM PO Last administered on 01/04/17 08:42; Admin Dose 15 MG; Start 12/27/16 at 09:00 Multivitamins Therapeutic (Theragran) 1 tab DAILY PO Last administered on 08:42; Admin Dose 1 TAB; Start 12/27/16 at 09:00 Raloxifene HCl (Evista) 60 mg DAILY PO Last administered on 01/04/17 08:42; Admin Dose 60 MG; Start 12/27/16 at 09:00 Pantoprazole (Protonix Tab) 40 mg DAILY@06 PO Last administered on 01/04/17 05: 15; Admin Dose 40 MG; Start 12/27/16 at 06:00 Docusate Sodium (Colace) 100 mg BID PO Last administered on 01/04/17 08:42; Admin Dose 100 MG; Start 01/02/17 at 21:00 Bisacodyl 5 mg 5 mg DAILY PRN PO CONSTIPATION Last administered on 01/02/17 18 :38; Admin Dose 5 MG; Start 01/02/17 at 17:00 Dextrose (D5W) 1,000 ml @ 60 mls/hr [id number] IV Last administered on 01/04/17 04:10; Admin Dose 60 MLS/HR; Start 01/02/17 at 19:30 GREGG DAVILA Jan 04, 2017 14:41
--- NOTE | 2017-01-04 19:41 | CONS ---
Date/Time of Note Date/Time of Note DATE: 01/04/17 TIME: 19:40 Assessment/Plan Assessment/Plan Additional Assessment/Plan 1. Acute kidney injury versus acute kidney injury on chronic kidney disease, likely secondary to prerenal azotemia and also secondary to urinary tract infection. 2. Acute urinary tract infection causing altered mental status. 3. Altered mental status, unclear etiology, possibly secondary to urinary tract infection. 4. History of possible chronic kidney disease secondary to hypertension and diabetes. 5. History of hypertension. 6. History of hyperlipidemia. 7. History of previous cerebrovascular accident. 8. History of borderline diabetes mellitus. PLAN: s/p IV Ceftriaxone for UTI- now off Cr 1.4, other electrolytes stable will follow up Consultation Date/Type/Reason Admit Date/Time Dec 26, 2016 at 21:23 Type of Consultation: NEPHROLOGY Referring Provider: FRED PENNINGTON MD 24 HR Interval Summary Free Text/Dictation BP stable, afebrile, No acute events Exam/Review of Systems Vital Signs Vitals Vital Signs Date Time Temp Pulse Resp B/P Pulse Ox O2 Delivery O2 Flow Rate FiO2 01/04/17 08:30 Nasal Cannula 2.0 01/04/17 08:22 98.5 60 18 129/60 99 Intake and Output 01/03/17 01/03/17 01/04/17 15:00 23:00 07:00 Intake Total 1510 ml 1060 ml Balance 1510 ml 1060 ml Results Result Diagram: 01/03/17 0425 01/04/17 0500 Results 24 hrs Laboratory Tests Test 01/04/17 05:00 Sodium Level 141 Potassium Level 4.2 Chloride Level 115 H Carbon Dioxide Level 21 Anion Gap 9 Blood Urea Nitrogen 23 H Creatinine 1.44 H Glucose Level 121 Calcium Level 8.8 Medications Medications Current Medications Acetaminophen (Tylenol Tab) 650 mg Q6H PRN PO PAIN AND OR ELEVATED TEMP Last administered on 12/29/16 05:14; Admin Dose 650 MG; Start 12/27/16 at 00:00 Enoxaparin Sodium (Lovenox) 30 mg DAILY SC Last administered on 01/04/17 08:50 ; Admin Dose 30 MG; Start 12/27/16 at 09:00 Aspirin (Aspirin) 81 mg DAILY PO Last administered on 01/04/17 08:42; Admin Dose 81 MG; Start 12/27/16 at 09:00 Ascorbic Acid (Vitamin C) 500 mg DAILY PO Last administered on 01/04/17 08:42; Admin Dose 500 MG; Start 12/27/16 at 09:00 Ferrous Sulfate (Ferrous Sulfate (Ec)) 325 mg BID PO Last administered on 08:42; Admin Dose 325 MG; Start 12/27/16 at 09:00 Fluoxetine HCl (Prozac) 20 mg DAILY PO Last administered on 01/04/17 08:42; Admin Dose 20 MG; Start 12/27/16 at 09:00 Metoprolol Succinate (Toprol Xl) 50 mg DAILY PO Last administered on 01/04/17 08:43; Admin Dose 50 MG; Start 12/27/16 at 09:00 Mirtazapine (Remeron) 15 mg QAM PO Last administered on 01/04/17 08:42; Admin Dose 15 MG; Start 12/27/16 at 09:00 Multivitamins Therapeutic (Theragran) 1 tab DAILY PO Last administered on 08:42; Admin Dose 1 TAB; Start 12/27/16 at 09:00 Raloxifene HCl (Evista) 60 mg DAILY PO Last administered on 01/04/17 08:42; Admin Dose 60 MG; Start 12/27/16 at 09:00 Pantoprazole (Protonix Tab) 40 mg DAILY@06 PO Last administered on 01/04/17 05: 15; Admin Dose 40 MG; Start 12/27/16 at 06:00 Docusate Sodium (Colace) 100 mg BID PO Last administered on 01/04/17 08:42; Admin Dose 100 MG; Start 01/02/17 at 21:00 Bisacodyl 5 mg 5 mg DAILY PRN PO CONSTIPATION Last administered on 01/02/17 18 :38; Admin Dose 5 MG; Start 01/02/17 at 17:00 Dextrose (D5W) 1,000 ml @ 60 mls/hr [id number] IV Last administered on 01/04/17 04:10; Admin Dose 60 MLS/HR; Start 01/02/17 at 19:30 DILSHAD PAIZ MD Jan 04, 2017 19:41
[2017-01-04 19:53] VITALS: BP 125/61; RESP 20
[2017-01-05] MEDS: PANTOPRAZOLE (EC) 40 MG TAB PO SCH (05:35)
[2017-01-05 06:00] LABS: BASOPHILS % 0.3 % (0.0-2.0); EOSINOPHILS # 0.4 10^3/ul (0.0-0.5); EOSINOPHILS % 6.2 % (0.0-7.0); HEMOGLOBIN 9.1 g/dl (12.0-16.0); LYMPHOCYTES # 1.8 10^3/ul (0.8-2.9); LYMPHOCYTES % 27.6 % (15.0-51.0); MEAN CORPUSCULAR HEMOGLOBIN 31.6 pg (29.0-33.0); MEAN CORPUSCULAR HGB CONC 31.4 g/dl (32.0-37.0); MEAN CORPUSCULAR VOLUME 100.7 fl (82.0-101.0); MEAN PLATELET VOLUME 10.6 fl (7.4-10.4); MONOCYTE # 0.4 10^3/ul (0.3-0.9); MONOCYTES % 6.5 % (0.0-11.0); NEUTROPHIL # 3.9 10^3/ul (1.6-7.5); NEUTROPHILS % 58.3 % (39.0-77.0); PLATELET COUNT 222 10^3/UL (140-415); RED BLOOD COUNT 2.88 10^6/ul (4.20-5.40); RED CELL DISTRIBUTION WIDTH 13.8 % (11.5-14.5); WHITE BLOOD COUNT 6.6 10^3/ul (4.8-10.8)
[2017-01-05 06:23] LABS: CALCIUM 9.1 mg/dl (8.4-10.2); CREATININE 1.42 mg/dl (0.44-1.00); POTASSIUM 4.1 mmol/L (3.5-5.1)
[2017-01-05 06:47] LABS: ADD SCAN DIFF NO
[2017-01-05 07:27] VITALS: BP 130/63; RESP 20
[2017-01-05] MEDS: MIRTAZAPINE 15 MG TAB PO SCH (09:03)
[2017-01-05] MEDS: DOCUSATE SODIUM 100 MG CAP PO SCH ×2 (09:03→20:12)
[2017-01-05] MEDS: MULTIVITAMINS THERAPEUTIC TAB PO SCH (09:03)
[2017-01-05] MEDS: ASCORBIC ACID 500 MG TAB PO SCH (09:03)
[2017-01-05] MEDS: FLUOXETINE 20 MG CAP PO SCH (09:03)
[2017-01-05] MEDS: FERROUS SULFATE (EC) 325 MG TAB PO SCH ×2 (09:03→20:12)
[2017-01-05] MEDS: METOPROLOL (XL) 50 MG TAB PO SCH (09:03)
[2017-01-05] MEDS: ASPIRIN 81 MG TAB PO SCH (09:03)
[2017-01-05] MEDS: RALOXIFENE 60 MG TAB PO SCH (09:03)
[2017-01-05] MEDS: ENOXAPARIN 30 MG/0.3 ML SYG SC SCH (09:10)
--- NOTE | 2017-01-05 13:57 | CONS ---
Date/Time of Note Date/Time of Note DATE: 01/05/17 TIME: 13:55 Assessment/Plan Assessment/Plan Additional Assessment/Plan 1. Acute kidney injury versus acute kidney injury on chronic kidney disease, likely secondary to prerenal azotemia and also secondary to urinary tract infection. 2. Acute urinary tract infection causing altered mental status. 3. Altered mental status, unclear etiology, possibly secondary to urinary tract infection. 4. History of possible chronic kidney disease secondary to hypertension and diabetes. 5. History of hypertension. 6. History of hyperlipidemia. 7. History of previous cerebrovascular accident. 8. History of borderline diabetes mellitus. PLAN: s/p IV Ceftriaxone for UTI- now off Cr 1.42- other electrolytes stable will follow up Consultation Date/Type/Reason Admit Date/Time Dec 26, 2016 at 21:23 Type of Consultation: NEPHROLOGY Referring Provider: FRED PENNINGTON MD 24 HR Interval Summary Free Text/Dictation Cr 1.42, BP stable Exam/Review of Systems Vital Signs Vitals Vital Signs Date Time Temp Pulse Resp B/P Pulse Ox O2 Delivery O2 Flow Rate FiO2 01/05/17 07:27 97.8 58 20 130/63 99 01/04/17 08:30 Nasal Cannula 2.0 Intake and Output 01/04/17 01/04/17 01/05/17 15:00 23:00 07:00 Intake Total 1480 ml 850 ml Balance 1480 ml 850 ml Exam GENERAL: Awake, alert NECK: Supple, no JVD, no lymphadenopathy. LUNGS: Decreased breath sounds at both lung bases, right middle lobe, right lower lobe basilar rales present. HEART: S1, S2, tachycardia, no murmur. ABDOMEN: Soft, nontender, nondistended. Bowel sounds are present. EXTREMITIES: No clubbing, cyanosis, or edema. The patient is able to move all 4 extremities. Strength 5/5 in all extremities. Results Result Diagram: 01/05/17 04501/05/17449 Results 24 hrs Laboratory Tests Test 01/05/17 04:50 White Blood Count 6.6 # Red Blood Count 2.88 L Hemoglobin 9.1 L Hematocrit 29.0 L Mean Corpuscular Volume 100.7 Mean Corpuscular Hemoglobin 31.6 Mean Corpuscular Hemoglobin Concent 31.4 L Red Cell Distribution Width 13.8 Platelet Count 222 Mean Platelet Volume 10.6 H Neutrophils % 58.3 Lymphocytes % 27.6 Monocytes % 6.5 Eosinophils % 6.2 Basophils % 0.3 Nucleated Red Blood Cells % 0.0 Neutrophils # 3.9 Lymphocytes # 1.8 Monocytes # 0.4 Eosinophils # 0.4 Basophils # 0.0 Nucleated Red Blood Cells # 0.0 Sodium Level 140 Potassium Level 4.1 Chloride Level 112 H Carbon Dioxide Level 19 L Anion Gap 13 Blood Urea Nitrogen 22 H Creatinine 1.42 H Glucose Level 106 Calcium Level 9.1 Medications Medications Current Medications Acetaminophen (Tylenol Tab) 650 mg Q6H PRN PO PAIN AND OR ELEVATED TEMP Last administered on 12/29/16 05:14; Admin Dose 650 MG; Start 12/27/16 at 00:00 Enoxaparin Sodium (Lovenox) 30 mg DAILY SC Last administered on 01/05/17 09:10 ; Admin Dose 30 MG; Start 12/27/16 at 09:00 Aspirin (Aspirin) 81 mg DAILY PO Last administered on 01/05/17 09:03; Admin Dose 81 MG; Start 12/27/16 at 09:00 Ascorbic Acid (Vitamin C) 500 mg DAILY PO Last administered on 01/05/17 09:03; Admin Dose 500 MG; Start 12/27/16 at 09:00 Ferrous Sulfate (Ferrous Sulfate (Ec)) 325 mg BID PO Last administered on 09:03; Admin Dose 325 MG; Start 12/27/16 at 09:00 Fluoxetine HCl (Prozac) 20 mg DAILY PO Last administered on 01/05/17 09:03; Admin Dose 20 MG; Start 12/27/16 at 09:00 Metoprolol Succinate (Toprol Xl) 50 mg DAILY PO Last administered on 01/05/17 09:03; Admin Dose 50 MG; Start 12/27/16 at 09:00 Mirtazapine (Remeron) 15 mg QAM PO Last administered on 01/05/17 09:03; Admin Dose 15 MG; Start 12/27/16 at 09:00 Multivitamins Therapeutic (Theragran) 1 tab DAILY PO Last administered on 09:03; Admin Dose 1 TAB; Start 12/27/16 at 09:00 Raloxifene HCl (Evista) 60 mg DAILY PO Last administered on 01/05/17 09:03; Admin Dose 60 MG; Start 12/27/16 at 09:00 Pantoprazole (Protonix Tab) 40 mg DAILY@06 PO Last administered on 01/05/17 05: 35; Admin Dose 40 MG; Start 12/27/16 at 06:00 Docusate Sodium (Colace) 100 mg BID PO Last administered on 01/05/17 09:03; Admin Dose 100 MG; Start 01/02/17 at 21:00 Bisacodyl 5 mg 5 mg DAILY PRN PO CONSTIPATION Last administered on 01/02/17 18 :38; Admin Dose 5 MG; Start 01/02/17 at 17:00 Dextrose (D5W) 1,000 ml @ 60 mls/hr [id number] IV Last administered on 01/04/17 20:31; Admin Dose 60 MLS/HR; Start 01/02/17 at 19:30 DILSHAD PAIZ MD Jan 05, 2017 13:56
--- NOTE | 2017-01-05 15:30 | PN ---
Date/Time of Note Date/Time of Note DATE: 01/05/17 TIME: 15:25 Assessment/Plan VTE Prophylaxis VTE Prophylaxis Intervention: other Lines/Catheters IV [facility] Type [facility]from [facility] Peripheral IV Urinary Cath still in place: No Assessment/Plan Assessment/Plan 1. Acute cystitis. Continue Rocephin. Dr. Del Rio is following patient in infectious disease consultation. 2. Acute kidney injury on chronic kidney disease. Dr. Perez is following patient in nephrology consultation. Continue to monitor BUN and creatinine. 3. Acute metabolic encephalopathy secondary to infection. 4. Hypertension by history. 5. Hyperlipidemia. 6. History of cerebrovascular accident. 7. History of anxiety and depression. 8. Anemia of chronic disease. 9. History of gastroesophageal reflux disease. 10. History of left knee replacement with decreased mobility. Case management positive for possible retirement facility placement Continue Lovenox for deep venous thrombosis prophylaxis and Protonix for peptic ulcer disease prophylaxis. Further recommendations based on clinical course. Plan of care discussed with Dr. Rogers. Subjective 24 Hr Interval Summary Free Text/Dictation ARU- repeal pending. NAD. No acute changes. dw staff Respiratory: no complaints Cardiovascular: no complaints Gastrointestinal: no complaints Exam/Review of Systems Vital Signs Vitals Vital Signs Date Time Temp Pulse Resp B/P Pulse Ox O2 Delivery O2 Flow Rate FiO2 01/05/17 07:27 97.8 58 20 130/63 99 01/04/17 08:30 Nasal Cannula 2.0 Intake and Output 01/04/17 01/04/17 01/05/17 15:00 23:00 07:00 Intake Total 1480 ml 850 ml Balance 1480 ml 850 ml Exam Constitutional: alert, oriented Respiratory: clear to auscultation, normal air movement Cardiovascular: nl pulses, regular rate and rhythm Gastrointestinal: non-tender, soft Musculoskeletal: nl extremities to inspection Extremities: normal pulses Neurological: nl mental status, nl speech Results Result Diagram: 01/05/17 0450 01/05/17 0450 Results 24 hrs Laboratory Tests Test 01/05/17 04:50 White Blood Count 6.6 # Red Blood Count 2.88 L Hemoglobin 9.1 L Hematocrit 29.0 L Mean Corpuscular Volume 100.7 Mean Corpuscular Hemoglobin 31.6 Mean Corpuscular Hemoglobin Concent 31.4 L Red Cell Distribution Width 13.8 Platelet Count 222 Mean Platelet Volume 10.6 H Neutrophils % 58.3 Lymphocytes % 27.6 Monocytes % 6.5 Eosinophils % 6.2 Basophils % 0.3 Nucleated Red Blood Cells % 0.0 Neutrophils # 3.9 Lymphocytes # 1.8 Monocytes # 0.4 Eosinophils # 0.4 Basophils # 0.0 Nucleated Red Blood Cells # 0.0 Sodium Level 140 Potassium Level 4.1 Chloride Level 112 H Carbon Dioxide Level 19 L Anion Gap 13 Blood Urea Nitrogen 22 H Creatinine 1.42 H Glucose Level 106 Calcium Level 9.1 Medications Medications Current Medications Acetaminophen (Tylenol Tab) 650 mg Q6H PRN PO PAIN AND OR ELEVATED TEMP Last administered on 12/29/16 05:14; Admin Dose 650 MG; Start 12/27/16 at 00:00 Enoxaparin Sodium (Lovenox) 30 mg DAILY SC Last administered on 01/05/17 09:10 ; Admin Dose 30 MG; Start 12/27/16 at 09:00 Aspirin (Aspirin) 81 mg DAILY PO Last administered on 01/05/17 09:03; Admin Dose 81 MG; Start 12/27/16 at 09:00 Ascorbic Acid (Vitamin C) 500 mg DAILY PO Last administered on 01/05/17 09:03; Admin Dose 500 MG; Start 12/27/16 at 09:00 Ferrous Sulfate (Ferrous Sulfate (Ec)) 325 mg BID PO Last administered on 09:03; Admin Dose 325 MG; Start 12/27/16 at 09:00 Fluoxetine HCl (Prozac) 20 mg DAILY PO Last administered on 01/05/17 09:03; Admin Dose 20 MG; Start 12/27/16 at 09:00 Metoprolol Succinate (Toprol Xl) 50 mg DAILY PO Last administered on 01/05/17 09:03; Admin Dose 50 MG; Start 12/27/16 at 09:00 Mirtazapine (Remeron) 15 mg QAM PO Last administered on 01/05/17 09:03; Admin Dose 15 MG; Start 12/27/16 at 09:00 Multivitamins Therapeutic (Theragran) 1 tab DAILY PO Last administered on 09:03; Admin Dose 1 TAB; Start 12/27/16 at 09:00 Raloxifene HCl (Evista) 60 mg DAILY PO Last administered on 01/05/17 09:03; Admin Dose 60 MG; Start 12/27/16 at 09:00 Pantoprazole (Protonix Tab) 40 mg DAILY@06 PO Last administered on 01/05/17 05: 35; Admin Dose 40 MG; Start 12/27/16 at 06:00 Docusate Sodium (Colace) 100 mg BID PO Last administered on 01/05/17 09:03; Admin Dose 100 MG; Start 01/02/17 at 21:00 Bisacodyl 5 mg 5 mg DAILY PRN PO CONSTIPATION Last administered on 01/02/17 18 :38; Admin Dose 5 MG; Start 01/02/17 at 17:00 Dextrose (D5W) 1,000 ml @ 60 mls/hr [id number] IV Last administered on 01/04/17 20:31; Admin Dose 60 MLS/HR; Start 01/02/17 at 19:30 GREGG DAVILA Jan 05, 2017 15:30
[2017-01-05] MEDS: DEXTROSE 5% 1,000 ML IV SCH (15:33)
[2017-01-05 19:10] VITALS: BP 124/59; RESP 18
[2017-01-06 05:48] LABS: BASOPHILS % 0.3 % (0.0-2.0); EOSINOPHILS # 0.4 10^3/ul (0.0-0.5); HEMOGLOBIN 9.5 g/dl (12.0-16.0); LYMPHOCYTES # 1.4 10^3/ul (0.8-2.9); LYMPHOCYTES % 20.3 % (15.0-51.0); MEAN CORPUSCULAR HEMOGLOBIN 31.7 pg (29.0-33.0); MEAN CORPUSCULAR HGB CONC 31.7 g/dl (32.0-37.0); MEAN PLATELET VOLUME 10.4 fl (7.4-10.4); MONOCYTE # 0.4 10^3/ul (0.3-0.9); MONOCYTES % 5.3 % (0.0-11.0); NEUTROPHIL # 4.7 10^3/ul (1.6-7.5); NEUTROPHILS % 67.5 % (39.0-77.0); PLATELET COUNT 237 10^3/UL (140-415); RED CELL DISTRIBUTION WIDTH 13.6 % (11.5-14.5)
[2017-01-06 05:56] LABS: ADD SCAN DIFF NO
[2017-01-06] MEDS: PANTOPRAZOLE (EC) 40 MG TAB PO SCH (05:57)
[2017-01-06 06:02] LABS: CALCIUM 9.1 mg/dl (8.4-10.2); CREATININE 1.31 mg/dl (0.44-1.00); POTASSIUM 4.3 mmol/L (3.5-5.1)
[2017-01-06] MEDS: DEXTROSE 5% 1,000 ML IV SCH ×2 (06:45→23:40)
[2017-01-06 07:50] VITALS: BP 140/63; RESP 19
[2017-01-06] MEDS: DOCUSATE SODIUM 100 MG CAP PO SCH ×2 (08:44→20:07)
[2017-01-06] MEDS: ASCORBIC ACID 500 MG TAB PO SCH (08:44)
[2017-01-06] MEDS: ASPIRIN 81 MG TAB PO SCH (08:44)
[2017-01-06] MEDS: MIRTAZAPINE 15 MG TAB PO SCH (08:44)
[2017-01-06] MEDS: METOPROLOL (XL) 50 MG TAB PO SCH (08:45)
[2017-01-06] MEDS: MULTIVITAMINS THERAPEUTIC TAB PO SCH (08:45)
[2017-01-06] MEDS: FLUOXETINE 20 MG CAP PO SCH (08:45)
[2017-01-06] MEDS: RALOXIFENE 60 MG TAB PO SCH (08:45)
[2017-01-06] MEDS: FERROUS SULFATE (EC) 325 MG TAB PO SCH ×2 (08:45→20:07)
[2017-01-06] MEDS: ENOXAPARIN 30 MG/0.3 ML SYG SC SCH (08:49)
--- NOTE | 2017-01-06 14:17 | PN ---
Date/Time of Note Date/Time of Note DATE: 01/06/17 TIME: 14:15 Assessment/Plan VTE Prophylaxis VTE Prophylaxis Intervention: SCD's Lines/Catheters IV [facility] Type (from [facility] Peripheral IV Urinary Cath still in place: No Assessment/Plan Chief Complaint/Hosp Course Patient remains hemodynamically stable, awaits for a [facility]ci facility placement, patient's remained hemodynamically stable, no acute events overnight , patient with poor mobility. Assessment/Plan 1. Acute cystitis. That is post treatment with Rocephin. Dr. Del Rio is following patient in infectious disease consultation. 2. Acute kidney injury on chronic kidney disease. Dr. Perez is following patient in nephrology consultation. Continue to monitor BUN and creatinine. 3. Acute metabolic encephalopathy secondary to infection. 4. Hypertension by history. 5. Hyperlipidemia. 6. History of cerebrovascular accident. 7. History of anxiety and depression. 8. Anemia of chronic disease. 9. History of gastroesophageal reflux disease. 10. History of left knee replacement with decreased mobility. Case management positive for possible [facility] facility placement Continue Lovenox for deep venous thrombosis prophylaxis and Protonix for peptic ulcer disease prophylaxis. Further recommendations based on clinical course. Plan of care discussed with Dr. Rogers. Problems: Exam/Review of Systems Vital Signs Vitals Vital Signs Date Time Temp Pulse Resp B/P Pulse Ox O2 Delivery O2 Flow Rate FiO2 01/06/17 07:50 97.1 57 19 140/63 98 01/04/17 08:30 Nasal Cannula 2.0 Intake and Output 01/05/17 01/05/17 01/06/17 14:59 22:59 06:59 Intake Total 1590 ml 1360 ml Balance 1590 ml 1360 ml Exam Constitutional: alert, oriented Head: normocephalic Neck: supple Respiratory: normal air movement Cardiovascular: nl pulses Gastrointestinal: non-tender, soft Extremities: normal pulses Neurological: nl mental status Results Result Diagram: 01/06/17 0430 01/06/17 0430 Results 24 hrs Laboratory Tests Test 01/06/17 04:30 White Blood Count 7.0 Red Blood Count 3.00 L Hemoglobin 9.5 L Hematocrit 30.0 L Mean Corpuscular Volume 100.0 Mean Corpuscular Hemoglobin 31.7 Mean Corpuscular Hemoglobin Concent 31.7 L Red Cell Distribution Width 13.6 Platelet Count 237 Mean Platelet Volume 10.4 Neutrophils % 67.5 Lymphocytes % 20.3 Monocytes % 5.3 Eosinophils % 6.0 Basophils % 0.3 Nucleated Red Blood Cells % 0.0 Neutrophils # 4.7 Lymphocytes # 1.4 Monocytes # 0.4 Eosinophils # 0.4 Basophils # 0.0 Nucleated Red Blood Cells # 0.0 Sodium Level 143 Potassium Level 4.3 Chloride Level 111 H Carbon Dioxide Level 20 L Anion Gap 16 Blood Urea Nitrogen 21 H Creatinine 1.31 H Glucose Level 107 Calcium Level 9.1 Medications Medications Current Medications Acetaminophen (Tylenol Tab) 650 mg Q6H PRN PO PAIN AND OR ELEVATED TEMP Last administered on 12/29/16 05:14; Admin Dose 650 MG; Start 12/27/16 at 00:00 Enoxaparin Sodium (Lovenox) 30 mg DAILY SC Last administered on 01/06/17 08:49 ; Admin Dose 30 MG; Start 12/27/16 at 09:00 Aspirin (Aspirin) 81 mg DAILY PO Last administered on 01/06/17 08:44; Admin Dose 81 MG; Start 12/27/16 at 09:00 Ascorbic Acid (Vitamin C) 500 mg DAILY PO Last administered on 01/06/17 08:44; Admin Dose 500 MG; Start 12/27/16 at 09:00 Ferrous Sulfate (Ferrous Sulfate (Ec)) 325 mg BID PO Last administered on 08:45; Admin Dose 325 MG; Start 12/27/16 at 09:00 Fluoxetine HCl (Prozac) 20 mg DAILY PO Last administered on 01/06/17 08:45; Admin Dose 20 MG; Start 12/27/16 at 09:00 Metoprolol Succinate (Toprol Xl) 50 mg DAILY PO Last administered on 01/06/17 08:45; Admin Dose 50 MG; Start 12/27/16 at 09:00 Mirtazapine (Remeron) 15 mg QAM PO Last administered on 01/06/17 08:44; Admin Dose 15 MG; Start 12/27/16 at 09:00 Multivitamins Therapeutic (Theragran) 1 tab DAILY PO Last administered on 08:45; Admin Dose 1 TAB; Start 12/27/16 at 09:00 Raloxifene HCl (Evista) 60 mg DAILY PO Last administered on 01/06/17 08:45; Admin Dose 60 MG; Start 12/27/16 at 09:00 Pantoprazole (Protonix Tab) 40 mg DAILY@06 PO Last administered on 01/06/17 05: 57; Admin Dose 40 MG; Start 12/27/16 at 06:00 Docusate Sodium (Colace) 100 mg BID PO Last administered on 01/06/17 08:44; Admin Dose 100 MG; Start 01/02/17 at 21:00 Bisacodyl 5 mg 5 mg DAILY PRN PO CONSTIPATION Last administered on 01/02/17 18 :38; Admin Dose 5 MG; Start 01/02/17 at 17:00 Dextrose (D5W) 1,000 ml @ 60 mls/hr [id number] IV Last administered on 01/06/17 06:45; Admin Dose 60 MLS/HR; Start 01/02/17 at 19:30 PALMA WILL Jan 06, 2017 14:17
--- NOTE | 2017-01-06 18:51 | CONS ---
Date/Time of Note Date/Time of Note DATE: 01/06/17 TIME: 18:50 Assessment/Plan Assessment/Plan Additional Assessment/Plan 1. Acute kidney injury versus acute kidney injury on chronic kidney disease, likely secondary to prerenal azotemia and also secondary to urinary tract infection. 2. Acute urinary tract infection causing altered mental status. 3. Altered mental status, unclear etiology, possibly secondary to urinary tract infection. 4. History of possible chronic kidney disease secondary to hypertension and diabetes. 5. History of hypertension. 6. History of hyperlipidemia. 7. History of previous cerebrovascular accident. 8. History of borderline diabetes mellitus. PLAN: s/p IV Ceftriaxone for UTI- now off Cr 1.32- other electrolytes stable will follow up Consultation Date/Type/Reason Admit Date/Time Dec 26, 2016 at 21:23 Type of Consultation: NEPHROLOGY Referring Provider: FRED PENNINGTON MD Exam/Review of Systems Vital Signs Vitals Vital Signs Date Time Temp Pulse Resp B/P Pulse Ox O2 Delivery O2 Flow Rate FiO2 01/06/17 07:50 97.1 57 19 140/63 98 01/04/17 08:30 Nasal Cannula 2.0 Intake and Output 01/05/17 01/05/17 01/06/17 14:59 22:59 06:59 Intake Total 1590 ml 1360 ml Balance 1590 ml 1360 ml Exam GENERAL: Awake, alert NECK: Supple, no JVD, no lymphadenopathy. LUNGS: Decreased breath sounds at both lung bases, right middle lobe, right lower lobe basilar rales present. HEART: S1, S2, tachycardia, no murmur. ABDOMEN: Soft, nontender, nondistended. Bowel sounds are present. EXTREMITIES: No clubbing, cyanosis, or edema. The patient is able to move all 4 extremities. Strength 5/5 in all extremities. Results Result Diagram: 01/06/17 0430 01/06/17 0430 Results 24 hrs Laboratory Tests Test 01/06/17 04:30 White Blood Count 7.0 Red Blood Count 3.00 L Hemoglobin 9.5 L Hematocrit 30.0 L Mean Corpuscular Volume 100.0 Mean Corpuscular Hemoglobin 31.7 Mean Corpuscular Hemoglobin Concent 31.7 L Red Cell Distribution Width 13.6 Platelet Count 237 Mean Platelet Volume 10.4 Neutrophils % 67.5 Lymphocytes % 20.3 Monocytes % 5.3 Eosinophils % 6.0 Basophils % 0.3 Nucleated Red Blood Cells % 0.0 Neutrophils # 4.7 Lymphocytes # 1.4 Monocytes # 0.4 Eosinophils # 0.4 Basophils # 0.0 Nucleated Red Blood Cells # 0.0 Sodium Level 143 Potassium Level 4.3 Chloride Level 111 H Carbon Dioxide Level 20 L Anion Gap 16 Blood Urea Nitrogen 21 H Creatinine 1.31 H Glucose Level 107 Calcium Level 9.1 Medications Medications Current Medications Acetaminophen (Tylenol Tab) 650 mg Q6H PRN PO PAIN AND OR ELEVATED TEMP Last administered on 12/29/16 05:14; Admin Dose 650 MG; Start 12/27/16 at 00:00 Enoxaparin Sodium (Lovenox) 30 mg DAILY SC Last administered on 01/06/17 08:49 ; Admin Dose 30 MG; Start 12/27/16 at 09:00 Aspirin (Aspirin) 81 mg DAILY PO Last administered on 01/06/17 08:44; Admin Dose 81 MG; Start 12/27/16 at 09:00 Ascorbic Acid (Vitamin C) 500 mg DAILY PO Last administered on 01/06/17 08:44; Admin Dose 500 MG; Start 12/27/16 at 09:00 Ferrous Sulfate (Ferrous Sulfate (Ec)) 325 mg BID PO Last administered on 08:45; Admin Dose 325 MG; Start 12/27/16 at 09:00 Fluoxetine HCl (Prozac) 20 mg DAILY PO Last administered on 01/06/17 08:45; Admin Dose 20 MG; Start 12/27/16 at 09:00 Metoprolol Succinate (Toprol Xl) 50 mg DAILY PO Last administered on 01/06/17 08:45; Admin Dose 50 MG; Start 12/27/16 at 09:00 Mirtazapine (Remeron) 15 mg QAM PO Last administered on 01/06/17 08:44; Admin Dose 15 MG; Start 12/27/16 at 09:00 Multivitamins Therapeutic (Theragran) 1 tab DAILY PO Last administered on 08:45; Admin Dose 1 TAB; Start 12/27/16 at 09:00 Raloxifene HCl (Evista) 60 mg DAILY PO Last administered on 01/06/17 08:45; Admin Dose 60 MG; Start 12/27/16 at 09:00 Pantoprazole (Protonix Tab) 40 mg DAILY@06 PO Last administered on 01/06/17 05: 57; Admin Dose 40 MG; Start 12/27/16 at 06:00 Docusate Sodium (Colace) 100 mg BID PO Last administered on 01/06/17 08:44; Admin Dose 100 MG; Start 01/02/17 at 21:00 Bisacodyl 5 mg 5 mg DAILY PRN PO CONSTIPATION Last administered on 01/02/17 18 :38; Admin Dose 5 MG; Start 01/02/17 at 17:00 Dextrose (D5W) 1,000 ml @ 60 mls/hr [id number] IV Last administered on 01/06/17 06:45; Admin Dose 60 MLS/HR; Start 01/02/17 at 19:30 DILSHAD PAIZ MD Jan 06, 2017 18:50
[2017-01-06 19:44] VITALS: BP 127/60; RESP 18
[2017-01-07 05:32] LABS: ADD SCAN DIFF NO
[2017-01-07 05:39] LABS: BASOPHILS % 0.3 % (0.0-2.0); EOSINOPHILS # 0.3 10^3/ul (0.0-0.5); HEMATOCRIT 28.1 % (37.0-47.0); LYMPHOCYTES # 1.7 10^3/ul (0.8-2.9); LYMPHOCYTES % 27.3 % (15.0-51.0); MEAN CORPUSCULAR HEMOGLOBIN 31.6 pg (29.0-33.0); MEAN CORPUSCULAR VOLUME 98.6 fl (82.0-101.0); MEAN PLATELET VOLUME 10.4 fl (7.4-10.4); MONOCYTE # 0.4 10^3/ul (0.3-0.9); MONOCYTES % 6.8 % (0.0-11.0); NEUTROPHIL # 3.8 10^3/ul (1.6-7.5); PLATELET COUNT 234 10^3/UL (140-415); RED BLOOD COUNT 2.85 10^6/ul (4.20-5.40); RED CELL DISTRIBUTION WIDTH 13.6 % (11.5-14.5); WHITE BLOOD COUNT 6.4 10^3/ul (4.8-10.8)
[2017-01-07] MEDS: PANTOPRAZOLE (EC) 40 MG TAB PO SCH (05:40)
[2017-01-07 07:25] LABS: CALCIUM 8.5 mg/dl (8.4-10.2); CREATININE 1.42 mg/dl (0.44-1.00); POTASSIUM 4.1 mmol/L (3.5-5.1)
[2017-01-07 08:46] VITALS: BP 131/60; RESP 19
[2017-01-07] MEDS: ASCORBIC ACID 500 MG TAB PO SCH (09:50)
[2017-01-07] MEDS: MULTIVITAMINS THERAPEUTIC TAB PO SCH (09:50)
[2017-01-07] MEDS: FERROUS SULFATE (EC) 325 MG TAB PO SCH ×2 (09:50→21:01)
[2017-01-07] MEDS: RALOXIFENE 60 MG TAB PO SCH (09:50)
[2017-01-07] MEDS: FLUOXETINE 20 MG CAP PO SCH (09:50)
[2017-01-07] MEDS: ASPIRIN 81 MG TAB PO SCH (09:50)
[2017-01-07] MEDS: DOCUSATE SODIUM 100 MG CAP PO SCH ×2 (09:50→21:01)
[2017-01-07] MEDS: MIRTAZAPINE 15 MG TAB PO SCH (09:50)
[2017-01-07] MEDS: METOPROLOL (XL) 50 MG TAB PO SCH (09:51)
[2017-01-07] MEDS: ENOXAPARIN 30 MG/0.3 ML SYG SC SCH (09:53)
--- NOTE | 2017-01-07 10:52 | PN ---
Date/Time of Note Date/Time of Note DATE: 01/07/17 TIME: 10:48 Assessment/Plan Lines/Catheters IV Catheter Type (from [facility]): Peripheral IV Urinary Cath still in place: No Assessment/Plan Assessment/Plan 1. Acute cystitis. That is post treatment with Rocephin. Dr. Del Rio is following patient in infectious disease consultation. 2. Acute kidney injury on chronic kidney disease. Dr. Perez is following patient in nephrology consultation. Continue to monitor BUN and creatinine. 3. Acute metabolic encephalopathy secondary to infection. 4. Hypertension by history. 5. Hyperlipidemia. 6. History of cerebrovascular accident. 7. History of anxiety and depression. 8. Anemia of chronic disease. 9. History of gastroesophageal reflux disease. 10. History of left knee replacement with decreased mobility. Case management positive for possible retirement facility placement Continue Lovenox for deep venous thrombosis prophylaxis and Protonix for peptic ulcer disease prophylaxis. Further recommendations based on clinical course. Plan of care discussed with Dr. Rogers. Subjective 24 Hr Interval Summary Free Text/Dictation NAD, afebrile, Cr elevted- nephrology follows. pending Acute Rehab Eval as family re appealed it. poor mobility- cont PT.dw staff-no acute events overnight Respiratory: pain Gastrointestinal: pain Genitourinary: no complaints Musculoskeletal: no complaints Exam/Review of Systems Vital Signs Vitals Vital Signs Date Time Temp Pulse Resp B/P Pulse Ox O2 Delivery O2 Flow Rate FiO2 01/07/17 08:46 97.4 58 19 131/60 99 01/04/17 08:30 Nasal Cannula 2.0 Intake and Output 01/06/17 01/06/17 01/07/17 15:00 23:00 07:00 Intake Total 1270 ml 1830 ml Balance 1270 ml 1830 ml Exam Constitutional: alert, well developed Respiratory: clear to auscultation, normal air movement Cardiovascular: nl pulses, regular rate and rhythm Gastrointestinal: non-tender, soft Extremities: normal pulses Neurological: nl mental status, nl speech Results Result Diagram: 01/07/17 0453 01/07/17 0453 Results 24 hrs Laboratory Tests Test 01/07/17 04:53 01/07/17 08:24 White Blood Count 6.4 Red Blood Count 2.85 L Hemoglobin 9.0 L Hematocrit 28.1 L Mean Corpuscular Volume 98.6 Mean Corpuscular Hemoglobin 31.6 Mean Corpuscular Hemoglobin Concent 32.0 Red Cell Distribution Width 13.6 Platelet Count 234 Mean Platelet Volume 10.4 Neutrophils % 60.0 Lymphocytes % 27.3 Monocytes % 6.8 Eosinophils % 5.0 Basophils % 0.3 Nucleated Red Blood Cells % 0.0 Neutrophils # 3.8 Lymphocytes # 1.7 Monocytes # 0.4 Eosinophils # 0.3 Basophils # 0.0 Nucleated Red Blood Cells # 0.0 Sodium Level 140 Potassium Level 4.1 Chloride Level 114 H Carbon Dioxide Level 19 L Anion Gap 11 Blood Urea Nitrogen 21 H Creatinine 1.42 H Glucose Level 103 Calcium Level 8.5 Bedside Glucose 104 Medications Medications Current Medications Acetaminophen (Tylenol Tab) 650 mg Q6H PRN PO PAIN AND OR ELEVATED TEMP Last administered on 12/29/16 05:14; Admin Dose 650 MG; Start 12/27/16 at 00:00 Enoxaparin Sodium (Lovenox) 30 mg DAILY SC Last administered on 01/07/17 09:53 ; Admin Dose 30 MG; Start 12/27/16 at 09:00 Aspirin (Aspirin) 81 mg DAILY PO Last administered on 01/07/17 09:50; Admin Dose 81 MG; Start 12/27/16 at 09:00 Ascorbic Acid (Vitamin C) 500 mg DAILY PO Last administered on 01/07/17 09:50; Admin Dose 500 MG; Start 12/27/16 at 09:00 Ferrous Sulfate (Ferrous Sulfate (Ec)) 325 mg BID PO Last administered on 09:50; Admin Dose 325 MG; Start 12/27/16 at 09:00 Fluoxetine HCl (Prozac) 20 mg DAILY PO Last administered on 01/07/17 09:50; Admin Dose 20 MG; Start 12/27/16 at 09:00 Metoprolol Succinate (Toprol Xl) 50 mg DAILY PO Last administered on 01/07/17 09:51; Admin Dose 50 MG; Start 12/27/16 at 09:00 Mirtazapine (Remeron) 15 mg QAM PO Last administered on 01/07/17 09:50; Admin Dose 15 MG; Start 12/27/16 at 09:00 Multivitamins Therapeutic (Theragran) 1 tab DAILY PO Last administered on 09:50; Admin Dose 1 TAB; Start 12/27/16 at 09:00 Raloxifene HCl (Evista) 60 mg DAILY PO Last administered on 01/07/17 09:50; Admin Dose 60 MG; Start 12/27/16 at 09:00 Pantoprazole (Protonix Tab) 40 mg DAILY@06 PO Last administered on 01/07/17 05: 40; Admin Dose 40 MG; Start 12/27/16 at 06:00 Docusate Sodium (Colace) 100 mg BID PO Last administered on 01/07/17 09:50; Admin Dose 100 MG; Start 01/02/17 at 21:00 Bisacodyl 5 mg 5 mg DAILY PRN PO CONSTIPATION Last administered on 01/02/17 18 :38; Admin Dose 5 MG; Start 01/02/17 at 17:00 Dextrose (D5W) 1,000 ml @ 60 mls/hr [id number] IV Last administered on 01/06/17 23:40; Admin Dose 60 MLS/HR; Start 01/02/17 at 19:30 GREGG DAVILA Jan 07, 2017 10:52
--- NOTE | 2017-01-07 13:03 | CONS ---
Date/Time of Note Date/Time of Note DATE: 01/07/17 TIME: 13:02 Assessment/Plan Assessment/Plan Additional Assessment/Plan 1. Acute kidney injury versus acute kidney injury on chronic kidney disease, likely secondary to prerenal azotemia and also secondary to urinary tract infection. 2. Acute urinary tract infection causing altered mental status. 3. Altered mental status, unclear etiology, possibly secondary to urinary tract infection. 4. History of possible chronic kidney disease secondary to hypertension and diabetes. 5. History of hypertension. 6. History of hyperlipidemia. 7. History of previous cerebrovascular accident. 8. History of borderline diabetes mellitus. PLAN: s/p IV Ceftriaxone for UTI- now off Cr slightly went upto 1.42- other electrolytes stable - will give NS 1 liter today will follow up Consultation Date/Type/Reason Admit Date/Time Dec 26, 2016 at 21:23 Type of Consultation: NEPHROLOGY Referring Provider: FRED PENNINGTON MD 24 HR Interval Summary Free Text/Dictation no acute events, BP stable, afebrile Exam/Review of Systems Vital Signs Vitals Vital Signs Date Time Temp Pulse Resp B/P Pulse Ox O2 Delivery O2 Flow Rate FiO2 01/07/17 08:46 97.4 58 19 131/60 99 01/04/17 08:30 Nasal Cannula 2.0 Intake and Output 01/06/17 01/06/17 01/07/17 15:00 23:00 07:00 Intake Total 1270 ml 1830 ml Balance 1270 ml 1830 ml Exam GENERAL: Awake, alert NECK: Supple, no JVD, no lymphadenopathy. LUNGS: Decreased breath sounds at both lung bases, right middle lobe, right lower lobe basilar rales present. HEART: S1, S2, tachycardia, no murmur. ABDOMEN: Soft, nontender, nondistended. Bowel sounds are present. EXTREMITIES: No clubbing, cyanosis, or edema. The patient is able to move all 4 extremities. Strength 5/5 in all extremities. Results Result Diagram: 01/07/17 0453 01/07/17 0453 Results 24 hrs Laboratory Tests Test 01/07/17 04:53 01/07/17 08:24 White Blood Count 6.4 Red Blood Count 2.85 L Hemoglobin 9.0 L Hematocrit 28.1 L Mean Corpuscular Volume 98.6 Mean Corpuscular Hemoglobin 31.6 Mean Corpuscular Hemoglobin Concent 32.0 Red Cell Distribution Width 13.6 Platelet Count 234 Mean Platelet Volume 10.4 Neutrophils % 60.0 Lymphocytes % 27.3 Monocytes % 6.8 Eosinophils % 5.0 Basophils % 0.3 Nucleated Red Blood Cells % 0.0 Neutrophils # 3.8 Lymphocytes # 1.7 Monocytes # 0.4 Eosinophils # 0.3 Basophils # 0.0 Nucleated Red Blood Cells # 0.0 Sodium Level 140 Potassium Level 4.1 Chloride Level 114 H Carbon Dioxide Level 19 L Anion Gap 11 Blood Urea Nitrogen 21 H Creatinine 1.42 H Glucose Level 103 Calcium Level 8.5 Bedside Glucose 104 Medications Medications Current Medications Acetaminophen (Tylenol Tab) 650 mg Q6H PRN PO PAIN AND OR ELEVATED TEMP Last administered on 12/29/16 05:14; Admin Dose 650 MG; Start 12/27/16 at 00:00 Enoxaparin Sodium (Lovenox) 30 mg DAILY SC Last administered on 01/07/17 09:53 ; Admin Dose 30 MG; Start 12/27/16 at 09:00 Aspirin (Aspirin) 81 mg DAILY PO Last administered on 01/07/17 09:50; Admin Dose 81 MG; Start 12/27/16 at 09:00 Ascorbic Acid (Vitamin C) 500 mg DAILY PO Last administered on 01/07/17 09:50; Admin Dose 500 MG; Start 12/27/16 at 09:00 Ferrous Sulfate (Ferrous Sulfate (Ec)) 325 mg BID PO Last administered on 09:50; Admin Dose 325 MG; Start 12/27/16 at 09:00 Fluoxetine HCl (Prozac) 20 mg DAILY PO Last administered on 01/07/17 09:50; Admin Dose 20 MG; Start 12/27/16 at 09:00 Metoprolol Succinate (Toprol Xl) 50 mg DAILY PO Last administered on 01/07/17 09:51; Admin Dose 50 MG; Start 12/27/16 at 09:00 Mirtazapine (Remeron) 15 mg QAM PO Last administered on 01/07/17 09:50; Admin Dose 15 MG; Start 12/27/16 at 09:00 Multivitamins Therapeutic (Theragran) 1 tab DAILY PO Last administered on 09:50; Admin Dose 1 TAB; Start 12/27/16 at 09:00 Raloxifene HCl (Evista) 60 mg DAILY PO Last administered on 01/07/17 09:50; Admin Dose 60 MG; Start 12/27/16 at 09:00 Pantoprazole (Protonix Tab) 40 mg DAILY@06 PO Last administered on 01/07/17 05: 40; Admin Dose 40 MG; Start 12/27/16 at 06:00 Docusate Sodium (Colace) 100 mg BID PO Last administered on 01/07/17 09:50; Admin Dose 100 MG; Start 01/02/17 at 21:00 Bisacodyl 5 mg 5 mg DAILY PRN PO CONSTIPATION Last administered on 01/02/17 18 :38; Admin Dose 5 MG; Start 01/02/17 at 17:00 Dextrose (D5W) 1,000 ml @ 60 mls/hr [id number] IV Last administered on 01/06/17 23:40; Admin Dose 60 MLS/HR; Start 01/02/17 at 19:30 DILSHAD PAIZ MD Jan 07, 2017 13:03
[2017-01-07] MEDS: DEXTROSE 5% 1,000 ML IV SCH (13:28)
[2017-01-07] MEDS ORDERED: SOD CHLORIDE 0.9% 1,000 ML IV SCH (13:30)
[2017-01-07 19:45] VITALS: BP 114/57; RESP 18
[2017-01-08 05:13] LABS: ADD SCAN DIFF NO
[2017-01-08 05:22] LABS: BASOPHILS % 0.4 % (0.0-2.0); EOSINOPHILS # 0.2 10^3/ul (0.0-0.5); EOSINOPHILS % 3.1 % (0.0-7.0); HEMATOCRIT 27.7 % (37.0-47.0); HEMOGLOBIN 9.1 g/dl (12.0-16.0); LYMPHOCYTES # 1.4 10^3/ul (0.8-2.9); LYMPHOCYTES % 19.3 % (15.0-51.0); MEAN CORPUSCULAR HEMOGLOBIN 32.5 pg (29.0-33.0); MEAN CORPUSCULAR HGB CONC 32.9 g/dl (32.0-37.0); MEAN CORPUSCULAR VOLUME 98.9 fl (82.0-101.0); MEAN PLATELET VOLUME 10.5 fl (7.4-10.4); MONOCYTE # 0.5 10^3/ul (0.3-0.9); NEUTROPHILS % 69.5 % (39.0-77.0); PLATELET COUNT 218 10^3/UL (140-415); RED CELL DISTRIBUTION WIDTH 13.6 % (11.5-14.5); WHITE BLOOD COUNT 7.2 10^3/ul (4.8-10.8)
[2017-01-08] MEDS: PANTOPRAZOLE (EC) 40 MG TAB PO SCH (05:39)
[2017-01-08 06:01] LABS: CALCIUM 8.7 mg/dl (8.4-10.2); CREATININE 1.27 mg/dl (0.44-1.00); POTASSIUM 4.3 mmol/L (3.5-5.1)
[2017-01-08 08:08] VITALS: BP 132/59; RESP 19
[2017-01-08] MEDS: ASPIRIN 81 MG TAB PO SCH (08:55)
[2017-01-08] MEDS: DOCUSATE SODIUM 100 MG CAP PO SCH (08:55)
[2017-01-08] MEDS: FLUOXETINE 20 MG CAP PO SCH (08:56)
[2017-01-08] MEDS: MULTIVITAMINS THERAPEUTIC TAB PO SCH (08:56)
[2017-01-08] MEDS: FERROUS SULFATE (EC) 325 MG TAB PO SCH (08:56)
[2017-01-08] MEDS: RALOXIFENE 60 MG TAB PO SCH (08:56)
[2017-01-08] MEDS: MIRTAZAPINE 15 MG TAB PO SCH (08:56)
[2017-01-08] MEDS: ASCORBIC ACID 500 MG TAB PO SCH (08:57)
[2017-01-08] MEDS: METOPROLOL (XL) 50 MG TAB PO SCH (08:57)
[2017-01-08] MEDS: ENOXAPARIN 30 MG/0.3 ML SYG SC SCH (09:04)
[2017-01-08] MEDS: DEXTROSE 5% 1,000 ML IV SCH (09:14)
[2017-01-08] MEDS ORDERED: DOCU-216 PO (12:39)
[2017-01-08] MEDS ORDERED: ASPI81TA3 PO (12:39)
--- NOTE | 2017-01-08 15:47 | DS ---
Date/Time of Note Date/Time of Note DATE: 01/08/17 TIME: 15:45 Discharge Summary Admission/Discharge Info Admit Date/Time Dec 26, 2016 at 21:23 Discharge Date/Time Discharge Diagnosis 1. Acute cystitis, status post treatment 2. Acute kidney injury on chronic kidney disease. 3. Acute metabolic encephalopathy secondary to infection, resolved 4. Hypertension by history. 5. Hyperlipidemia. 6. History of cerebrovascular accident. 7. History of anxiety and depression. 8. Anemia of chronic disease. 9. History of gastroesophageal reflux disease. 10. History of left knee replacement with decreased mobility. Patient Condition: Good Hx of Present Illness The patient is an 86-year-old female with a past medical history positive for hypertension, anxiety, depression, anemia of chronic disease, history of acute kidney injury, dyslipidemia, gastroesophageal reflux disease. The patient also with history of left knee replacement in 11/2015, subsequent wound dehiscence and exposed hardware, status post treatment. The patient followed by Dr. Nguyen and Dr. Thomas in orthopedic surgery, and Dr. Almanzar from plastic surgery standpoint. The patient was brought to the emergency room last night by family members stating that the patient has been altered and hallucinating. The patient was sent to the emergency room by primary care physician. In the emergency room, patient was noted to have a urinary tract infection per urinalysis. The patient was started on ceftriaxone. The patient did not have any leukocytosis or fever. The patient was noted to have elevated BUN and creatinine. The patient is being admitted for further evaluation and management. The patient underwent a chest x-ray, which revealed no evidence for acute cardiopulmonary disease. No nausea, vomiting, fever reported. No chest pain, no shortness of breath. Hospital Course 1. Acute cystitis. Status post treatment with Rocephin. Dr. Del Rio was following patient in infectious disease consultation. 2. Acute kidney injury on chronic kidney disease. Dr. Perez was following patient in nephrology consultation. Continue to monitor BUN and creatinine. 3. Acute metabolic encephalopathy secondary to infection. 4. Hypertension by history. 5. Hyperlipidemia. 6. History of cerebrovascular accident. 7. History of anxiety and depression. 8. Anemia of chronic disease. 9. History of gastroesophageal reflux disease. 10. History of left knee replacement with decreased mobility. Offered continuation of care at half-way facility,however, family refused and patient was discharged to home with home health services, Home Meds Active Scripts Docusate Sodium (Dok) 100 Mg Capsule, 100 MG PO BID for 30 Days, CAP Prov:PALMA WILL 01/08/17 Aspirin (Aspirin) 81 Mg Chew, 81 MG PO DAILY for 30 Days, TAB Prov:PALMA WILL 01/08/17 Reported Medications Ascorbic Acid (Vitamin C) 500 Mg Tab, 500 MG PO DAILY, TAB 12/26/16 Calcium Polycarbophil (Fiber-Caps) 625 Mg Tablet, 625 MG PO QAM, TAB 12/26/16 Ferrous Sulfate* (Ferrous Sulfate*) 325 Mg Tabec, 325 MG PO BID, TAB 12/26/16 Mirtazapine* (Mirtazapine*) 15 Mg Tablet, 15 MG PO QAM, TAB 12/26/16 Omeprazole* (Omeprazole*) 40 Mg Capsule.dr, 40 MG PO DAILY, #30 CAP 12/26/16 Fluoxetine Hcl* (Fluoxetine Hcl*) 20 Mg Capsule, 20 MG PO DAILY, CAP 12/26/16 Multivitamins* (Once Daily*) 1 Tab Tablet, 1 TAB PO DAILY, TAB 01/19/16 Metoprolol Succinate* (Toprol XL*) 50 Mg Tab.er.24h, 50 MG PO DAILY, #30 TAB 01/19/16 Raloxifene Hcl* (Evista*) 60 Mg Tablet, 60 MG PO DAILY, TAB 11/24/14 Discontinued Reported Medications Loratadine* (Claritin*) 10 Mg Tablet, 10 MG PO QHS, TAB 12/26/16 Potassium Chloride* (Potassium Chloride*) 20 Meq Tablet.er, 20 MEQ PO QHS, TAB.SA 12/26/16 Furosemide* (Furosemide*) 20 Mg Tablet, 20 MG PO DAILY, #60 TAB 12/26/16 Follow-up Plan Follow-up with PMD in 2 weeks. Primary Care Provider Matthew Rogers MD Time spent on discharge: > 30 minutes Pending Labs Laboratory Tests Test 01/08/17 04:40 White Blood Count 7.210^3/ul (4.8-10.8) Red Blood Count 2.8010^6/ul (4.20-5.40) Hemoglobin 9.1g/dl (12.0-16.0) Hematocrit 27.7% (37.0-47.0) Mean Corpuscular Volume 98.9fl (82.0-101.0) Mean Corpuscular Hemoglobin 32.5pg (29.0-33.0) Mean Corpuscular Hemoglobin Concent 32.9g/dl (32.0-37.0) Red Cell Distribution Width 13.6% (11.5-14.5) Platelet Count 56013^3/UL (140-415) Mean Platelet Volume 10.5fl (7.4-10.4) Neutrophils % 69.5% (39.0-77.0) Lymphocytes % 19.3% (15.0-51.0) Monocytes % 7.0% (0.0-11.0) Eosinophils % 3.1% (0.0-7.0) Basophils % 0.4% (0.0-2.0) Nucleated Red Blood Cells % 0.0/100WBC (0.0-0.0) Neutrophils # 5.010^3/ul (1.6-7.5) Lymphocytes # 1.410^3/ul (0.8-2.9) Monocytes # 0.510^3/ul (0.3-0.9) Eosinophils # 0.210^3/ul (0.0-0.5) Basophils # 0.010^3/ul (0.0-0.1) Nucleated Red Blood Cells # 0.010^3/ul (0.0-0.0) Sodium Level 144mmol/L (135-144) Potassium Level 4.3mmol/L (3.5-5.1) Chloride Level 113mmol/L (97-110) Carbon Dioxide Level 18mmol/L (21-31) Anion Gap 17 (8-16) Blood Urea Nitrogen 26mg/dl (7-20) Creatinine 1.27mg/dl (0.44-1.00) Glucose Level 118mg/dl (70-220) Calcium Level 8.7mg/dl (8.4-10.2) PALMA WILL Jan 08, 2017 15:47
== END 2017-01-08 18:00 | disposition home health service (06) | DRG 689 ==
LOC: E/R 19:50 → PP2 21:23 → MS1 12-28 06:43
PROVIDERS: ADMIT Internal Medicine; ATTEND Internal Medicine
DX: N30.00 Acute cystitis without hematuria (principal); G93.41 Metabolic encephalopathy; N17.9 Acute kidney failure, unspecified; I12.9 Hypertensive chronic kidney disease with stage 1 through stage 4 chronic kidney disease, or unspecified chronic kidney disease; N18.9 Chronic kidney disease, unspecified; E78.5 Hyperlipidemia, unspecified; D63.8 Anemia in other chronic diseases classified elsewhere; F32.9 Major depressive disorder, single episode, unspecified; F41.9 Anxiety disorder, unspecified; K21.9 Gastro-esophageal reflux disease without esophagitis; R73.03 Prediabetes; B96.89 Other specified bacterial agents as the cause of diseases classified elsewhere; Z96.652 Presence of left artificial knee joint; Z74.09 Other reduced mobility; Z86.73 Personal history of transient ischemic attack (TIA), and cerebral infarction without residual deficits
CPT/HCPCS: 70450; 71010; 76775; 80048; 80053; 81001; 82962; 83605; 83735; 84484; 85025; 85610; 85730; 87040; 87086; 93005; 96374; 97110; 97163; 97530; J0692; J0696; J1650; J2405; J7030; J7040; J7042; J7070